=== PATIENT | male | born 1955 | race Caucasian/White ===

== ENCOUNTER 2016-12-23 20:42 | Observation (INO) ==
[2016-12-23] MEDS ORDERED: Nitroglycerin 0.4 MG TAB.SUBL SL ONE (21:43)
--- NOTE | 2016-12-23 21:44 | Emergency Department Note ---
Disposition Clinical Impression: Chest pain Qualifiers: Chest pain type: unspecified Qualified Code(s): R07.9 - Chest pain, unspecified Disposition: Admitted As Inpatient Condition: Good Time of Disposition: 22:30 Chest Pain HPI - General Chief Complaint: ED Chest Pain Stated Complaint: ache in chest Time Seen by Provider: 12/23/16 21:27 Source: patient, family Mode of arrival: ambulatory Limitations: no limitations Vital Signs Reviewed: Yes Nursing Notes Reviewed: Yes - History of Present Illness HPI Narrative: Patient is a 61-year-old male with past medical history of GERD, COPD, hypertension, diabetes, high cholesterol. He presents today due to pain in the center of his chest. He states that he has had several these episodes in the past month or 2. However, today at 3 PM, he had an episode of what he described as a spasm in his chest. It has been pretty constant since then. No associated nausea, vomiting, fevers, radiation, sweating. He denies any shortness of breath that is above baseline. No previous heart attack, stents. He states that he takes omeprazole daily for GERD and does not report any burning or reflux into the back of his throat. Severity scale (1-10): 2 - Related Data Home Medications Medication Instructions Recorded Confirmed Albuterol Inhaler 10/23/16 Coq10 10/23/16 Dulera 100 Mcg/5 Mcg Inhaler 10/23/16 Glucosamine 10/23/16 Lansoprazole 10/23/16 Loratadine 10/23/16 QVAR 40 mcg 10/23/16 Simvastatin 10/23/16 Singulair 10/23/16 Spiriva 10/23/16 Ventolin Hfa 10/23/16 Vitamin D 10/23/16 amLODIPine 10/23/16 Previous Rx's Medication Instructions Recorded Benzonatate [Tessalon] 200 mg PO TID PRN #30 capsule 10/23/16 Cefdinir [Omnicef] 300 mg PO BID #20 capsule 10/23/16 methylPREDNISolone [Medrol] 4 mg PO TAPER #21 tablet 10/23/16 Allergies Allergy/AdvReac Type Severity Reaction Status Date / Time azithromycin Allergy Rash Verified 10/23/16 10:10 [From Zithromax Z-Michael] mold Allergy Rash Verified 10/23/16 10:10 dust Allergy Wheezing Uncoded 10/23/16 10:10 All systems ED: reviewed and negative except as stated. Constitutional: Denies: fever Cardiovascular: Reports: chest pain. Denies: palpitations Respiratory: Denies: cough, dyspnea Gastrointestinal: Denies: abdominal pain, nausea, vomiting, diarrhea Genitourinary: Denies: urgency, dysuria Neurological: Denies: weakness, numbness, paresthesias Chest Pain PMH - Past Medical History Medical history: Reports: COPD, diabetes, other Psychiatric history: Reports: no psych history - Social History Smoking Status: Never smoker Alcohol use: Reports: none Drug use: Reports: none Physical Exam - General Limitations: no limitations General appearance: alert, in no apparent distress - Head Head exam: atraumatic, normocephalic, normal inspection - Eye Eye exam: Present: normal appearance, PERRL, EOMI - ENT ENT exam: normal exam, normal oropharynx, mucous membranes moist - Neck Neck exam: Present: normal inspection, full ROM, trachea midline - Chest Chest inspection: Present: normal inspection, symmetric chest wall rise, tenderness (mild tenderness of sternum that is not reproducing the patient's pain) - Respiratory Respiratory exam: Present: normal lung sounds bilaterally - Cardiovascular Cardiovascular exam: Present: regular rate, normal rhythm, normal heart sounds - Abdominal Exam Abdominal exam: Present: soft, Non-Tender. Absent: tenderness, distention, guarding, rebound, rigidity - Extremities Exam Extremities exam: Present: normal inspection, full ROM. Absent: tenderness, pedal edema - Neurological Exam Neurological exam: Present: alert, oriented X3 - Psychiatric Psychiatric exam: Present: normal affect, normal mood - Skin Skin exam: Present: warm, dry, intact, normal color Course Course Narrative: Vitals within normal limits. Physical exam benign. There is some mild tenderness of the sternum but it did not produce this patient's pain. Labs show no elevation of white blood cell count. BMP not concerning. Troponin negative. EKG shows normal sinus rhythm with no acute ST changes. Chest x-ray shows severe emphysema. The patient's description of spasm-type pain in his chest could be associated with esophageal spasms, especially in the setting of history of GERD. However, cardiac etiology cannot be ruled out at this time. Patient was given nitroglycerin. Recommend admission for ACS rule out. Chest X-Ray 12/23/16 21:20 IMPRESSION: Severe emphysema. D/ / Abel Mahajan MD / Abel Mahajan MD Interpreting Provider: Abel Mahajan MD Vital Signs Temperature 98.2 F 12/23/16 21:17 Pulse Rate 93 12/23/16 21:17 Respiratory Rate 16 12/23/16 21:17 Blood Pressure 134/92 12/23/16 21:17 O2 Sat by Pulse Oximetry 96 12/23/16 21:17 Temperature 98.2 F 12/23/16 21:17 Pulse Rate 78 12/23/16 23:04 Respiratory Rate 18 12/23/16 23:04 Blood Pressure 127/85 12/23/16 23:04 O2 Sat by Pulse Oximetry 96 12/23/16 23:04 Oxygen Delivery Oxygen Delivery Room Air Chest Pain - MDM Narrative Medical decision making narrative: Vitals within normal limits. Physical exam benign. There is some mild tenderness of the sternum but it did not produce this patient's pain. Labs show no elevation of white blood cell count. BMP not concerning. Troponin negative. EKG shows normal sinus rhythm with no acute ST changes. Chest x-ray shows severe emphysema. The patient's description of spasm-type pain in his chest could be associated with esophageal spasms, especially in the setting of history of GERD. However, cardiac etiology cannot be ruled out at this time. Patient was given nitroglycerin, no improvement in pain. Recommend admission for ACS rule out. PATIENT HAS REFUSED ASPIRIN AT THIS TIME. - Medical Records Medical records reviewed: Yes I reviewed the patient's medical records. - Lab Data Lab results reviewed: Yes I reviewed the patient's lab results. Result diagrams: 12/23/16 21:56 12/23/16 21:56 Lab Results 12/23/16 12/23/16 12/23/16 Range/Units 21:56 21:56 21:56 WBC 10.0 (4.3-11.1) K/mcL RBC 5.26 (4.19-5.50) M/mcL Hgb 15.2 (12.9-16.9) g/dL Hct 45.4 (37.5-50.1) % MCV 86.3 (83.0-100.0) fL MCH 28.9 (28.0-33.3) pg MCHC 33.5 (31.6-35.5) g/dL RDW 13.5 (11.5-14.5) % Plt Count 322 (140-400) K/mcL MPV 9.0 L (9.4-12.4) fL Immature Gran % 0.2 (0-4) % Seg Neutrophils % 67.2 % Lymphocytes % 21.8 % Monocytes % 7.8 % Eosinophils % 1.9 % Basophils % 1.1 % Neutrophils # 6.7 (1.6-8.9) K/mcL Lymphocytes # 2.2 (0.6-4.6) K/mcL Monocytes # 0.8 (0.0-1.3) K/mcL Eosinophils # 0.2 (0.0-0.6) K/mcL Basophils # 0.1 (0.0-0.2) K/mcL Immature Plt Fraction 2.1 (1.1-6.1) % PT 10.0 (9.4-12.1) Seconds INR 0.9 APTT 35.4 (26.0-36.0) Seconds Sodium 131 L (136-145) mEq/L Potassium 4.1 (3.5-4.5) mEq/L Chloride 97 L (98-109) mEq/L Carbon Dioxide 22 (19-29) mEq/L BUN 12 (8-26) mg/dL Creatinine 0.78 (0.72-1.25) mg/dL Est GFR ( Amer) > 60 (> 60) Est GFR (Non-Af Amer) > 60 (> 60) BUN/Creatinine Ratio 15 (6-26) Glucose 115 H (70-99) mg/dL Calculated Osmolality 273 L (280-300) Calcium 9.6 (8.6-10.8) mg/dL Troponin I (0-0.03) ng/mL 12/23/16 Range/Units 21:56 WBC (4.3-11.1) K/mcL RBC (4.19-5.50) M/mcL Hgb (12.9-16.9) g/dL Hct (37.5-50.1) % MCV (83.0-100.0) fL MCH (28.0-33.3) pg MCHC (31.6-35.5) g/dL RDW (11.5-14.5) % Plt Count (140-400) K/mcL MPV (9.4-12.4) fL Immature Gran % (0-4) % Seg Neutrophils % % Lymphocytes % % Monocytes % % Eosinophils % % Basophils % % Neutrophils # (1.6-8.9) K/mcL Lymphocytes # (0.6-4.6) K/mcL Monocytes # (0.0-1.3) K/mcL Eosinophils # (0.0-0.6) K/mcL Basophils # (0.0-0.2) K/mcL Immature Plt Fraction (1.1-6.1) % PT (9.4-12.1) Seconds INR APTT (26.0-36.0) Seconds Sodium (136-145) mEq/L Potassium (3.5-4.5) mEq/L Chloride (98-109) mEq/L Carbon Dioxide (19-29) mEq/L BUN (8-26) mg/dL Creatinine (0.72-1.25) mg/dL Est GFR ( Amer) (> 60) Est GFR (Non-Af Amer) (> 60) BUN/Creatinine Ratio (6-26) Glucose (70-99) mg/dL Calculated Osmolality (280-300) Calcium (8.6-10.8) mg/dL Troponin I 0.00 (0-0.03) ng/mL - Radiology Data Radiology results reviewed: Yes I reviewed the patient's radiology results. Chest X-Ray 12/23/16 21:20 IMPRESSION: Severe emphysema. D/ / Abel Mahajan MD / Abel Mahajan MD Interpreting Provider: Abel Mahajan MD - EKG Data EKG attestation: Yes I reviewed and interpreted this EKG. Heart Score - Score History: Slightly Suspicious EKG: Normal Age: 45-65 Risk Factors: Equal/Greater than 3 risk factor or history of atherosclerotic disease Troponin: Less than normal limit HEART Score Total: 3 S.B.A.R. - S.B.A.R. Situation: Demographics, MOA Background: Presenting Complaint, Relevant PMH, Meds, & Allergies Assessment: Vital Signs, Course and respsone to treatment, Exam Concerns, Patient/Family Expectation, Pertinant Lab Results, Outstanding Labs Recommendation: Barrier(s) to disposition, Recommendation based on pending studies, treatments, or consults Nicole Report Given to: Dr. Ying Rivera Repor Time: 22:44 Attestation Statement - Attestation Attestation: I examined this patient and my medical decision-making was reviewed with the Resident Physician, Dr. Mejia. I agree with the documented findings, disposition and treatment plan as described except to the extent set forth below. Patient is a 61-year-old white male with a history of COPD, high cholesterol, hypertension, diabetes who presents to the emergency department with gradually worsening substernal chest pain. Patient states that this is been happening intermittently for short bursts of time over the past few months but today since 3:00 has had a constant aching sensation within the substernal area of his chest which is nonradiating and constant. Patient denies any diaphoresis, no shortness of breath, no nausea vomiting no back discomfort or flank pain no other associated symptoms. Patient states he has had a prior cardiac workup approximately 3 years ago for which he had a stress test done which was a chemical stress. Patient has not had any further testing since that time. I agree with the patient's physical exam findings as documented. Patient's EKG shows a normal sinus rhythm without acute ischemic changes. Patient was administered aspirin and nitroglycerin with some mild improvement but not resolution of his discomfort which continues to be intermittent over time in the ED. Patient's laboratory evaluation was unremarkable with a negative troponin. Considering patient's numerous risk factors and suspicious symptoms we feel he should be admitted for further cardiac evaluation. Patient agrees with this plan and case was discussed with the hospitalist who accepted patient for admission and further testing. Patient has remained hemodynamically stable throughout his ED course.
[2016-12-23 22:02] LABS: Basophils # 0.1 K/mcL (0.0-0.2); Basophils % 1.1 %; Eosinophils # 0.2 K/mcL (0.0-0.6); Eosinophils % 1.9 %; Hematocrit 45.4 % (37.5-50.1); Hemoglobin 15.2 g/dL (12.9-16.9); Immature Granulocytes % 0.2 % (0-4); Immature Platelets 2.1 % (1.1-6.1); Lymphocytes # 2.2 K/mcL (0.6-4.6); Lymphocytes % 21.8 %; Mean Corpuscular HGB Conc 33.5 g/dL (31.6-35.5); Mean Corpuscular Hemoglobin 28.9 pg (28.0-33.3); Mean Corpuscular Volume 86.3 fL (83.0-100.0); Monocytes # 0.8 K/mcL (0.0-1.3); Monocytes % 7.8 %; Neutrophils # 6.7 K/mcL (1.6-8.9); Platelet Count 322 K/mcL (140-400); Red Blood Count 5.26 M/mcL (4.19-5.50); Red Cell Distribution Width 13.5 % (11.5-14.5); Segmented Neutrophils % 67.2 %
[2016-12-23 22:06] LABS: INR 0.9
[2016-12-23 22:09] LABS: Activated Partial Thrombo Time 35.4 Seconds (26.0-36.0)
[2016-12-23 22:15] LABS: BUN/Creatinine Ratio 15 (6-26); Blood Urea Nitrogen 12 mg/dL (8-26); Calcium 9.6 mg/dL (8.6-10.8); Carbon Dioxide 22 mEq/L (19-29); Chloride 97 mEq/L (98-109); Glucose 115 mg/dL (70-99); Osmolality,Calculated 273 (280-300); Potassium 4.1 mEq/L (3.5-4.5); Sodium 131 mEq/L (136-145); eGFR For African Americans > 60 (> 60); eGFR For Non-African Americans > 60 (> 60)
[2016-12-24] MEDS ORDERED: Nitroglycerin 0.4 MG TAB.SUBL SL PRN (01:33)
[2016-12-24] MEDS ORDERED: *HR* Morphine 2 MG/ML SYRINGE IVP PRN (01:33)
[2016-12-24] MEDS ORDERED: Ondansetron 4 MG/2 ML VIAL IVP PRN (06:26)
[2016-12-24] MEDS ORDERED: Naloxone 0.4 MG/ML INJ IVP PRN (06:26)
[2016-12-24] MEDS ORDERED: Acetaminophen 325 MG TABLET PO PRN (06:26)
--- NOTE | 2016-12-24 06:34 | Internal Med History&Physical ---
Date of Encounter: 12/24/16 Time of Encounter: 05:30 Assessment and Plan (1) Chest pain Current visit: Yes Status: Acute 1. Will check a second troponin STAT. 2. Will plan for pharmcologic stress test later horacio if second troponin negative. 3. Will order ECHO as well. Qualifiers: Chest pain type: precordial pain Qualified Code(s): R07.2 - Precordial pain (2) COPD (chronic obstructive pulmonary disease) Current visit: Yes Status: Chronic 1. NO acute process. 2. Continue home meds as appropriate. Qualifiers: COPD type: emphysema Emphysema type: panlobular Qualified Code(s): J43.1 - Panlobular emphysema (3) DVT prophylaxis Current visit: Yes Status: Acute 1. Heparin SQ. Internal Medicine - H&P: HPI Chief complaint: chest pain Admitted From: Emergency Dept Plans for Post Hospital Care: Home History of present illness: Mr. Mary is a 61 year old male who presents with a 2-3 day history of chest pain, associated dyspnea, and pain rating to his neck and jaw. Because of persistence and severity of his symptoms he came in to the ER. Workup in the ER was negative. He was subsequently admitted to the hospitalist service. Upon my assessment of the patient, he is chest pain-free. He has severe COPD, but he states his breathing has been stable and at his baseline now. He denies any fevers, cough, congestion, vomiting, or diarrhea. Past Med Surg Social Fam HX - Past Medical History Attestation: Yes The following information was validated with the patient. Source: patient, old records reviewed Medical history: COPD, diabetes, other Psychiatric history: no psych history - Past Surgical History Surgical History: no surgical history - Social History Smoking Status: Never smoker Smokeless Tobacco Status: No Alcohol use: none Drug use: none Current living situation: Home Activity Level: Independent ambulation - Family History Mother Living Status: Age at : 79 Cause of : stroke Hx Family Cardiac Disorders: Yes (htn, angina) Hx Family Psychosocial Disorders: Yes ("hypercondract") Father Living Status: Age at : 71 Cause of : heart attack Hx Family Cardiac Disorders: Yes (heart attack, open heart surgery) Hx Family Endocrine Disorder: Yes (DM) Internal Medicine - H&P: Meds Albuterol Inhaler 1 IH QID PRN 10/23/16 [History] Benzonatate [Tessalon] 200 mg PO TID PRN #30 capsule 10/23/16 [Rx] Cefdinir [Omnicef] 300 mg PO BID #20 capsule 10/23/16 [Rx] Coq10 100 mg PO DAILY 10/23/16 [History] Dulera 100 Mcg/5 Mcg Inhaler 2 IH BID 10/23/16 [History] Glucosamine 1 tab PO BID 10/23/16 [History] Lansoprazole 30 mg PO BID 10/23/16 [History] Loratadine 10 mg PO DAILY 10/23/16 [History] QVAR 40 mcg 2 puff IH BID 10/23/16 [History] Simvastatin 20 mg PO DAILY 10/23/16 [History] Singulair 10 mg PO DAILY 10/23/16 [History] Spiriva 1 IH DAILY 10/23/16 [History] Ventolin Hfa 1 IH QID PRN 10/23/16 [History] Vitamin D 400 mg PO DAILY 10/23/16 [History] amLODIPine DAILY 10/23/16 [History] methylPREDNISolone [Medrol] 4 mg PO TAPER #21 tablet 10/23/16 [Rx] Albuterol Sulfate [Proair Hfa] 1 puff IH QID PRN 12/24/16 [History] Albuterol Sulfate [Proventil] 4 mg PO TID 12/24/16 [History] Dextran 70/Hypromellose [Artificial Tears Eye Drops] 1 drop OP QID PRN 12/24/16 [History] Finasteride [Proscar] 1 tab PO DAILY 12/24/16 [History] Metformin HCl [Fortamet] 1 tab PO BID 12/24/16 [History] Mv,Minerals/FA/Lycopene/Ginkgo [One Daily For Men 50+ Adv Tab] 1 tab PO DAILY [History] Ocuvite Softgel 1 tab PO DAILY 12/24/16 [History] 3 Allergy/AdvReac Type Severity Reaction Status Date / Time azithromycin Allergy Rash Verified 10/23/16 10:10 [From Zithromax Z-Michael] mold Allergy Rash Verified 10/23/16 10:10 dust Allergy Wheezing Uncoded 10/23/16 10:10 - Constitutional Constitutional: no chills, no fever(s), no night sweats - EENT Eyes: no blurry vision, no change in vision Ears: no ear pain, no tinnitus Nose, mouth and throat: no nasal congestion, no sinus pressure, no sore throat - Cardiovascular Cardiovascular ROS IM: chest pain, diaphoresis, dyspnea, dyspnea on exertion, no lightheadedness, no palpitations - Respiratory Respiratory: no cough, no hemoptysis, no wheezing - Gastrointestinal Gastrointestinal: no abdominal pain, no diarrhea, no hematemesis, no hematochezia, no melena, no vomiting - Genitourinary Genitourinary ROS male: no dysuria, no flank pain, no hematuria - Musculoskeletal Musculoskeletal ROS IM: no back pain, no joint swelling - Integumentary Integumentary IM: no rash, no jaundice - Neurological Neurological ROS: no focal weakness, no headache(s) - Psychiatric Psychiatric: no anxiety, no depression - Endocrine Endocrine IM: no polydipsia, no polyuria - Allergic/Immunologic Allergic/Immunologic: no wheezing, no GI upset with certain foods - Constitutional Vitals: Temp Pulse Resp BP Pulse Ox 97.7 F 74 18 125/83 93 12/24/16 04:36 12/24/16 04:36 12/24/16 04:36 12/24/16 04:36 12/24/16 04:36 General appearance: Present: cooperative, A&O X 3, pleasant, no acute distress - Head Head exam: Present: normal inspection - Eye Eye exam: Present: EOMI, PERRL. Absent: scleral icterus Pupils: Present: normal accommodation - ENT ENT exam: Present: mucous membranes dry, normal exam - Neck Neck exam general surgery: Present: full ROM, supple, trachea midline. Absent: tenderness - Respiratory Respiratory exam: Present: CTAB. Absent: rales, rhonchi, wheezes - Cardiovascular Cardiovascular exam: Present: RRR, +S1, +S2. Absent: systolic murmur - GI/Abdominal GI/Abdominal exam: Present: normal bowel sounds, soft. Absent: hepatomegaly, splenomegaly, tenderness - Extremities Exam Extremities exam: Present: full ROM, warm. Absent: calf tenderness, tenderness - Back Exam Back exam: Present: normal inspection. Absent: CVA tenderness (L), CVA tenderness (R) - Neurological Exam Neurological exam: Present: alert, CN II-XII intact, oriented X3, strengths equal and symetr throughout - Psychiatric Psychiatric exam: Present: normal affect, normal mood - Skin Skin exam: Present: dry, warm. Absent: rash Internal Med - H&P Results - Labs CBC & Chem 7: 12/23/16 21:56 12/23/16 21:56 - EKG Data -: EKG Interpreted by Myself - EKG Data Prior EKG available for review: no EKG comments: 12/24/16 06:37 NSR; no acute changes - Diagnostic Studies Chest x-ray Status: image reviewed by me (negative other than COPD changes)
[2016-12-24] MEDS ORDERED: Regadenoson 0.4 MG/5 ML SYRINGE IVP ONE (07:12)
[2016-12-24] MEDS ORDERED: Beclomethasone 40mcg MDI IH SCH (10:00)
[2016-12-24] MEDS ORDERED: Budesonide/Formoterol 160/4.5 MDI IH SCH (10:00)
[2016-12-24] MEDS: Finasteride 5 MG TABLET PO SCH (10:42)
[2016-12-24] MEDS: Loratadine 10 MG TABLET PO SCH (10:42)
--- NOTE | 2016-12-24 11:01 | Nuclear Medicine Stress Report ---
Regadenoson Nuclear Stress Name: Morro Mary Date of Study: 12/24/2016 Date: 1955 Ht: 73.0 in Medical Record#: [id number] Age: 61 Wt: 190.0 lb Gender: Male Order #: [id number] Location: [facility] Room: opt Supervising Provider: Sidra Espana CNP Reading Physician: Agustin Rodriguez, DO, FACC, FASNC Ordering Physician: Armani Meredith MD Stress Technologist: Alka London, TILE DITCHER, CCT, CPFT Assistant Professor Of Archaeology: Brian Ambrosio Indications: Chest Pain Impression: Pharmacologic stress ECG is negative for ischemia at level of heart rate achieved. Gated EF > 70%. Perfusion imaging was negative for ischemia or infarct. History: Hypertension Diabetes Hypercholesteremia Stress Test Summary: Stress Test Type: Pharmacologic Regadenoson 0.4mg/5ml given IV Baseline Information: Initial Heart Rate: 74 Blood Pressure: 118/76 Stress Information: Stress Time: 4 min sec Test Terminated Due to (primary): As per protocol Maximum Blood Pressure: 70/60 Maximum Heart Rate: 93 Percent Maximum Heart Rate Achieved: 59 Double Product: 6510 METS Reached: 1 Symptoms: Shortness of breath Nuclear Summary: SPECT myocardial perfusion imaging using Tc99m Sestamibi given intravenously was performed at rest and following cardiac stress testing. The resting images were obtained following initial dose of 11.0 mCi. Following stress an additional dose of 30.8 mCi was given at peak exercise or 30 seconds post regadenoson infusion. Medication Given: Time Medication Dose Units Route Findings: Stress Note * Resting ECG demonstrated normal sinus rhythm. * No baseline arrhythmias were noted. * Pharmacologic stress ECG is negative for ischemia at level of heart rate achieved. * No arrhythmias were noted during stress. One PVC in recovery. * Patient had no chest pain during stress. Hemodynamic responses * Normal hemodynamic responses to pharmacologic stress. Study Quality * Study quality is average. Gated EF > 70% * Gated EF > 70%. Left Ventricle * The left ventricle is not dilated. NORMALS * Normal wall motion. * Normal segmental perfusion in stress. TID * No evidence of transient ischemic dilatation. TID ratio = 1.08. Lung Uptake * There is no evidence of increase lung uptake. Inferior Perfusion Rest * The inferior segment shows a mild reduction in perfusion, which resolved with stress imaging. This is consistent with artifact. Updated by Agustin Rodriguez DO, MARLENE, CRISTY, KIRSTEN on 12/24/2016 10:54:47 AM electronically signed on 12/24/2016 10:55:49 AM with status of Final
--- NOTE | 2016-12-24 16:16 | Internal Med Progress Note ---
<Katie Lawrence - Last Filed: 12/24/16 16:14> Date of Encounter: 12/24/16 Time of Encounter: 16:14 - Assessment and plan (1) Chest pain Current Visit: Yes Status: Acute Assessment and plan: Chest pain not worsened by exercise, not relieved with rest Troponin negative x 2 ECHO - negative for ischemia. Gated EF>70% PLAN: Lipid panel pending AM Will consider high-dose statin based upon ACSVD Risk Score, pending lipid panel results The USPSTF recommends the use of aspirin for men age 45 to 79 years -- pt meets criteria with potential benefit due to a reduction in myocardial infarctions given risk factors (DM, Age, HTN, M) outweighs the potential harm due to an increase in gastrointestinal hemorrhage Start low-dose aspirin (81 mg PO daily), enteric coated Qualifiers: Chest pain type: precordial pain Qualified Code(s): R07.2 - Precordial pain (2) COPD (chronic obstructive pulmonary disease) Current Visit: Yes Status: Chronic Assessment and plan: Vitals WNL Continue home medication Qualifiers: COPD type: emphysema Emphysema type: panlobular Qualified Code(s): J43.1 - Panlobular emphysema (3) DVT prophylaxis Current Visit: Yes Status: Acute Assessment and plan: Intermittent compression devices ordered (4) GERD (gastroesophageal reflux disease) Current Visit: Yes Status: Acute Assessment and plan: Hx of GERD Per pt, no night time cough, no reflux symptoms. Endorses occasional heartburn with no current symptoms Continue home medications NPO diet for AM. Qualifiers: Esophagitis presence: esophagitis presence not specified Qualified Code(s) : K21.9 - Gastro-esophageal reflux disease without esophagitis - Subjective Interval history: No acute events overnight. No chest pain. No heartburn. No abdominal pain. States he feels occasional "spasm" on sternum has subsided. Chest pain on admission waas Not aggravated by exercise. No relieved with rest - Constitutional Vitals: Temp Pulse Resp BP Pulse Ox 97.9 F 78 16 121/75 95 12/24/16 11:25 12/24/16 11:25 12/24/16 11:43 12/24/16 11:25 12/24/16 11:43 General appearance: Present: cooperative, A&O X 3, pleasant, no acute distress - Head Head exam: Present: atraumatic, normocephalic - Respiratory Respiratory exam: Absent: accessory muscle use, respiratory distress - Cardiovascular Cardiovascular exam: Present: RRR, +S1, +S2 - GI/Abdominal GI/Abdominal exam: Present: normal bowel sounds, soft, no peritoneal signs. Absent: distended, tenderness - Expanded Lower Extremities Exam Ankle exam: Absent: swelling, tenderness Internal Medicine: Result - Labs CBC & Chem 7: 12/23/16 21:56 12/23/16 21:56 Labs: Cardiac Enzymes 12/24/16 Range/Units 06:38 Troponin I 0.00 (0-0.03) ng/mL - ABG Interpretation ABG results: PT/INR, D-dimer PT 10.0 Seconds (9.4-12.1) 12/23/16 21:56 - Diagnostic Studies Other Images Additional comments: Chest X-Ray 12/23/16 21:20 IMPRESSION: Severe emphysema. D/ / Abel Mahajan MD / Abel Mahajan MD Interpreting Provider: Abel Mahajan MD Consult Discharge Plan - Plan Referrals: Larissa Mcgowan, BEHAVIORAL SCIENTIST [Primary Care Provider] - (Please call for an appt. the day patient will be discharge ) <Armani Meredith P - Last Filed: 12/24/16 18:31> Date of Encounter: 12/24/16 - Constitutional Vitals: Temp Pulse Resp BP Pulse Ox 98.2 F 80 18 121/82 94 12/24/16 16:43 12/24/16 16:43 12/24/16 16:43 12/24/16 16:43 12/24/16 16:43 Internal Medicine: Result - Labs CBC & Chem 7: 12/23/16 21:56 12/23/16 21:56 Labs: Cardiac Enzymes 12/24/16 Range/Units 06:38 Troponin I 0.00 (0-0.03) ng/mL - ABG Interpretation ABG results: PT/INR, D-dimer PT 10.0 Seconds (9.4-12.1) 12/23/16 21:56 - Attending Attestation I examined this patient and my medical decision-making was reviewed with the Resident Physician. I agree with the documented findings, disposition and treatment plan as described except to the extent set forth below. This is not a progress note. This note should not be billed. This is the event note
[2016-12-24] MEDS: Beclomethasone 40mcg MDI IH SCH (20:41)
[2016-12-24] MEDS: Albuterol 2.5 MG/3 ML NEBULIZER IH PRN (20:53)
--- NOTE | 2016-12-25 05:54 | Electrocardiograph Report ---
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
[2016-12-25 06:16] LABS: Basophils # 0.1 K/mcL (0.0-0.2); Basophils % 0.8 %; Eosinophils # 0.2 K/mcL (0.0-0.6); Eosinophils % 2.4 %; Immature Granulocytes % 0.2 % (0-4); Immature Platelets 1.9 % (1.1-6.1); Lymphocytes # 2.2 K/mcL (0.6-4.6); Lymphocytes % 25.8 %; Mean Corpuscular HGB Conc 34.1 g/dL (31.6-35.5); Mean Corpuscular Hemoglobin 29.2 pg (28.0-33.3); Mean Corpuscular Volume 85.8 fL (83.0-100.0); Mean Platelet Volume 8.9 fL (9.4-12.4); Monocytes # 0.7 K/mcL (0.0-1.3); Monocytes % 7.7 %; Neutrophils # 5.4 K/mcL (1.6-8.9); Platelet Count 304 K/mcL (140-400); Red Blood Count 5.13 M/mcL (4.19-5.50); Red Cell Distribution Width 13.4 % (11.5-14.5); Segmented Neutrophils % 63.1 %
[2016-12-25 06:28] LABS: Chol/HDL Ratio 3.4 (0-4.9)
[2016-12-25 06:30] LABS: Alanine Aminotransferase 22 Units/L (0-55); Albumin 3.6 g/dL (3.5-5.0); Albumin/Globulin Ratio 1.1 (1.1-2.2); Alkaline Phosphatase 53 Units/L (38-126); Aspartate Amino Transferase 17 Units/L (5-34); BUN/Creatinine Ratio 14 (6-26); Bilirubin,Total 0.5 mg/dL (0.2-1.2); Blood Urea Nitrogen 10 mg/dL (8-26); Calcium 8.8 mg/dL (8.6-10.8); Carbon Dioxide 21 mEq/L (19-29); Chloride 98 mEq/L (98-109); Chol/HDL Ratio 3.4 (0-4.9); Cholesterol 112 mg/dL (< 200); Globulin 3.2 g/dL (2.4-3.5); Glucose 110 mg/dL (70-99); HDL Cholesterol 33 mg/dL (40-59); LDL Cholesterol,Calculated 54 mg/dL (0-99); Magnesium 1.8 mg/dL (1.6-2.6); Osmolality,Calculated 266 (280-300); Sodium 128 mEq/L (136-145); Total Protein 6.8 g/dL (6.0-8.3); Triglycerides 127 mg/dL (< 150); eGFR For African Americans > 60 (> 60); eGFR For Non-African Americans > 60 (> 60)
[2016-12-25] MEDS ORDERED: Tiotropium 18 MCG inhalation IH SCH (07:00)
[2016-12-25 07:39] VITALS: BP 121/86
[2016-12-25] MEDS: Beclomethasone 40mcg MDI IH SCH (08:21)
[2016-12-25] MEDS: Albuterol 2.5 MG/3 ML NEBULIZER IH PRN (08:21)
[2016-12-25] MEDS: Finasteride 5 MG TABLET PO SCH (08:31)
[2016-12-25] MEDS: Loratadine 10 MG TABLET PO SCH (08:31)
[2016-12-25] MEDS ORDERED: Aspirin Enteric Coated 81 MG Tablet PO SCH (09:00)
[2016-12-25] MEDS ORDERED: Albuterol 2.5 MG/3 ML NEBULIZER IH SCH (09:00)
--- NOTE | 2016-12-25 09:38 | Discharge Summary ---
<Katie Lawrence - Last Filed: 12/25/16 10:10> Date of Encounter: 12/25/16 Time of Encounter: 09:34 - Discharge Diagnosis (1) Chest pain Priority: Primary Status: Acute (2) GERD (gastroesophageal reflux disease) Priority: Primary Status: Chronic (3) COPD (chronic obstructive pulmonary disease) Priority: Secondary Status: Chronic (4) DVT prophylaxis Priority: Secondary Status: Acute - Discharge Medications Prescriptions: Aspirin Enteric Coated [Aspirin EC] 81 mg PO DAILY #30 Home Medications: Albuterol Sulfate [Proventil] 4 mg PO TID 12/24/16 [History] Amlodipine Besylate/Benazepril [Lotrel 10-20 mg Capsule] 1 cap PO DAILY [History] Finasteride [Proscar] 5 mg PO DAILY 12/24/16 [History] Lansoprazole [Prevacid] 30 mg PO DAILY 12/24/16 [History] Mometasone/Formoterol [Dulera 200 Mcg/5 Mcg Inhaler] 2 puff IH BID 12/24/16 [ History] Montelukast [Singulair] 10 mg PO DAILY 12/24/16 [History] Simvastatin [Zocor] 20 mg PO HS 12/24/16 [History] metFORMIN [Glucophage] 500 mg PO BIDWM 12/24/16 [History] Aspirin Enteric Coated [Aspirin EC] 81 mg PO DAILY #30 12/25/16 [Rx] Finasteride [Proscar] 5 mg PO DAILY tab 12/25/16 [Rx] Loratadine [Claritin] 10 mg PO DAILY tab 12/25/16 [Rx] Simvastatin [Zocor] 20 mg PO DAILY tab 12/25/16 [Rx] Allergies/Adverse Reactions: 3 Allergy/AdvReac Type Severity Reaction Status Date / Time azithromycin Allergy Rash Verified 10/23/16 10:10 [From Zithromax Z-Michael] mold Allergy Rash Verified 10/23/16 10:10 dust Allergy Wheezing Uncoded 10/23/16 10:10 Procedures/tests Complete & Pending: Procedures Performed prior 72 hours Category Date Time Status NM kev perf SPECT multi [NM] Routine Exams 12/24/16 06:29 Taken ECG 12 lead ECG [ECG] AM 0600 Y 12/25/16 06:00 Ordered SP pharm nuclear stress Routine Y 12/24/16 07:30 Completed Chest X-Ray 12/23/16 21:20 IMPRESSION: Severe emphysema. D/ / Abel Mahajan MD / Abel Mahajan MD Interpreting Provider: Abel Mahajan MD Date of admission: 12/23/16 23:24 Primary care physician: Larissa Mcgowan CNP Consults: 12/24/16 00:47 Consult to Assistant To The Dean [CONS] Routine Reason for SW Consult: File paperwork, Living Will, Medical POA 12/25/16 08:13 Consult to Gastroenterology [CONS] Routine Consulting Provider: [facility] [place] Reason for Consult: Chest pain, neg fo ACS r/o. Call Completed: No Discharging clinician: Katie Lawrence Anticipated date of discharge: 12/25/16 - Patient Status Disposition: Home, Self-Care Condition: Good Functional capacity at discharge: independent ambulation Overall status at discharge: patient is progressing back to baseline - Discharge Instructions Instructions: Emphysema (DC) Follow Up With: Barrie Robin MD [Partnered Physician] - 01/15/17 10:00 am (Please follow up as schedule...) Larissa Mcgowan CNP [Primary Care Provider] - 01/03/17 10:10 am (Please call for an appt. the day patient will be discharge ) Additional Instructions: Please follow up with your primary care provider Follow up with Dr. Robin of the gastroenterology service as scheduled. Please take your Aspirin 81 mg enteric coated capsule each day. Please return to the emergency room in case of new or worsening chest pain, chest pain associated with back pain, fever, SOB or new onset of symptoms . - Diet and Activity Activity: increase activity as tolerated Diet: low fat, low cholesterol, low salt diet Interval History: No acute events overnight. No chest pain. No SOB. No abdominal pain. Does continue to endorse occassional "spams" Hospital course: Mr. Mary is a 61 year old male with a past medical history of COPD, HTN and DM who presented to the ED with chief complaint of intermittent, sternal chest discomfort in the past 2 months. On admission, he described that the duration had changed from intermittent to one of constant "spasm" in chest. No associated nausea, vomiting, fevers, radiation, sweating. He states that he takes omeprazole daily for GERD with intermittent symptoms. He was recommended for admission for ACS rule out. The patient was given nitroglycerin, with no improvement in pain. Troponin levels x2 were negative. EKG showed normal sinus rhythm with no acute ST changes. The patient had a non exercise nuclear stress testing done negative for ischemia, with gated EF > 70%. Chest x-ray showed severe emphysema. Gastroenterology was consulted, due to the patient's description of spasm-type pain in the setting of history of GERD. The patient's co-morbid conditions were stable while on medical management. - Time Spent with Patient Total time spent providing and/or coordinating discharge services: - Constitutional Vitals: Temp Pulse Resp BP Pulse Ox 97.4 F L 72 13 121/86 93 12/25/16 07:35 12/25/16 07:35 12/25/16 08:24 12/25/16 07:35 12/25/16 08:24 General appearance: Present: cooperative, A&O X 3, pleasant, no acute distress - Head Head exam: Present: atraumatic, normocephalic - Eye Eye exam: Present: sclera anicteric. Absent: conjunctival injection - Respiratory Respiratory exam: Present: CTAB. Absent: accessory muscle use, rales, rhonchi, wheezes - Cardiovascular Cardiovascular exam: Present: RRR, +S1, +S2. Absent: diastolic murmur, gallop, rubs, systolic murmur - GI/Abdominal GI/Abdominal exam: Present: soft. Absent: distended, guarding, tenderness <Viri,Armani P - Last Filed: 12/25/16 18:33> Date of Encounter: 12/25/16 Procedures/tests Complete & Pending: Procedures Performed prior 72 hours Category Date Time Status NM kev perf SPECT multi [NM] Routine Exams 12/24/16 06:29 Taken ECG 12 lead ECG [ECG] AM 0600 Y 12/25/16 06:00 Ordered SP pharm nuclear stress Routine Y 12/24/16 07:30 Completed Date of admission: 12/23/16 23:24 Primary care physician: Larissa Mcgowan CNP Consults: 12/24/16 00:47 Consult to Assistant To The Dean [CONS] Routine Reason for SW Consult: File paperwork, Living Will, Medical POA 12/25/16 08:13 Consult to Gastroenterology [CONS] Routine Consulting Provider: [facility] [place] Reason for Consult: Chest pain, neg fo ACS r/o. Call Completed: No Hospital course: Mr. Mary is a 61 year old male - Time Spent with Patient Total time spent providing and/or coordinating discharge services: - Constitutional Vitals: Temp Pulse Resp BP Pulse Ox 97.4 F L 72 13 121/86 93 12/25/16 07:35 12/25/16 07:35 12/25/16 08:24 12/25/16 07:35 12/25/16 08:24 - Attending Attestation I examined this patient and my medical decision-making was reviewed with the Resident Physician. I agree with the documented findings, disposition and treatment plan as described except to the extent set forth below.
--- NOTE | 2016-12-25 09:43 | Gastroenterology Consult Note ---
<Nayeli Duran - Last Filed: 12/25/16 10:10> Date of Encounter: 12/25/16 Time of Encounter: 09:37 - Assessment and plan (1) Chest pain Status: Acute Assessment and plan: non cardiac chest pain. non exercise nuclear stress test negative for ischemia Troponins x2 negative. No prior EGD on record. lipid panel Within normal limits. Last endoscopy 03/24/10 for heartburn, dysphagia, done by Dr. Saha. EGD showed hiatal hernia, irregular Z line, gastric mucosal erythema, normal duodenum. biopsies were negative for malignancy. Patient states his last colonoscopy was about five years ago, but no records could be found. Plan: will continue non cardiac chest pain work up as outpatient. continue home PPI follow up outpatient with Dr. Robin Qualifiers: Chest pain type: other chest pain Qualified Code(s): R07.89 - Other chest pain; R07.8 - Other chest pain - Time Spent With Patient Total time spent is greater than 50% in coordination of care (as documented) at patient's floor/unit and/or counseling patient: GI History of Present Illness - Data of Consult Consult date: 12/25/16 Requesting Physician: Armani Meredith MD - Consult Narrative Reason for consult: chest pain workup, ACS work up negative. History of present illness: Mr. Mary is a 61 year old male with PMhx of COPD, DM. He presented to the ED with chief complaint of chest pain and was admitted for further work up. Tropes x2 were negative, patient had non exercise nuclear stress testing done and work up for that was negative. patient denies nausea, vomiting, diarrhea, fever, chills, chest pain, shortness of breath, hematuria, hematochezia, melena. He does have history of GERD and hiatal hernia, last endoscopy was in 2009. Patient states he does not currently have difficulty swallowing but has a history of dysphagia. he denies current chest pain. Past Med Surg Social Fam HX - Past Medical History Medical history: COPD, diabetes, other Psychiatric history: no psych history - Past Surgical History Surgical History: no surgical history - Social History Smoking Status: Never smoker Smokeless Tobacco Status: No Alcohol use: none Drug use: none - Family History Mother Living Status: Age at : 79 Cause of : stroke Hx Family Cardiac Disorders: Yes (htn, angina) Hx Family Psychosocial Disorders: Yes ("hypercondract") Father Living Status: Age at : 71 Cause of : heart attack Hx Family Cardiac Disorders: Yes (heart attack, open heart surgery) Hx Family Endocrine Disorder: Yes (DM) All systems PM: reviewed and no additional remarkable complaints except as stated - Constitutional Vitals: Temp Pulse Resp BP Pulse Ox 97.4 F L 72 13 121/86 93 12/25/16 07:35 12/25/16 07:35 12/25/16 08:24 12/25/16 07:35 12/25/16 08:24 General appearance: Present: A&O X 3, pleasant, no acute distress - Head Head exam: Present: atraumatic, normocephalic - Neck Neck exam general surgery: Present: supple, trachea midline - Respiratory Respiratory exam: Present: CTAB - Cardiovascular Cardiovascular exam: Present: RRR, +S1, +S2 - GI/Abdominal GI/Abdominal exam: Present: hypoactive bowel sounds, soft, tenderness. Absent: distended - Extremities Exam Extremities exam: Absent: cyanotic, pedal edema - Psychiatric Psychiatric exam: Present: normal affect, normal mood Results - Labs CBC & Chem 7: 12/25/16 05:58 12/25/16 05:58 Labs: Last Result Calcium 8.8 mg/dL (8.6-10.8) 12/25/16 05:58 Troponin I 0.00 ng/mL (0-0.03) 12/24/16 06:38 Triglycerides 127 mg/dL (< 150) 12/25/16 05:58 Entire Visit Hgb 15.0 g/dL (12.9-16.9) 12/25/16 05:58 Hct 44.0 % (37.5-50.1) 12/25/16 05:58 PT 10.0 Seconds (9.4-12.1) 12/23/16 21:56 Total Bilirubin 0.5 mg/dL (0.2-1.2) 12/25/16 05:58 AST 17 Units/L (5-34) 12/25/16 05:58 ALT 22 Units/L (0-55) 12/25/16 05:58 - ABG ABG results: PT/INR, D-dimer PT 10.0 Seconds (9.4-12.1) 12/23/16 21:56 Consult Discharge Plan - Plan Instructions: Emphysema (DC) Additional Instructions: Please follow up with your primary care provider Follow up with Dr. Robin of the gastroenterology service as scheduled. Please take your Aspirin 81 mg enteric coated capsule each day. Please return to the emergency room in case of new or worsening chest pain, chest pain associated with back pain, fever, SOB or new onset of symptoms . Referrals: Barrie Robin MD [Partnered Physician] - 01/15/17 10:00 am (Please follow up as schedule...) Larissa Mcgowan CNP [Primary Care Provider] - 01/03/17 10:10 am (Please call for an appt. the day patient will be discharge ) Prescriptions: Aspirin Enteric Coated [Aspirin EC] 81 mg PO DAILY #30 <Barrie Robin - Last Filed: 12/31/16 16:11> Date of Encounter: 12/21/16 - Time Spent With Patient Total time spent is greater than 50% in coordination of care (as documented) at patient's floor/unit and/or counseling patient: GI History of Present Illness - Data of Consult Requesting Physician: Armani Meredith MD - Consult Narrative History of present illness: Mr. Mary is a 61 year old male - Constitutional Vitals: Temp Pulse Resp BP Pulse Ox 97.4 F L 72 13 121/86 93 12/25/16 07:35 12/25/16 07:35 12/25/16 08:24 12/25/16 07:35 12/25/16 08:24 Results - Labs CBC & Chem 7: 12/25/16 05:58 12/25/16 05:58 Labs: Last Result Calcium 8.8 mg/dL (8.6-10.8) 12/25/16 05:58 Troponin I 0.00 ng/mL (0-0.03) 12/24/16 06:38 Triglycerides 127 mg/dL (< 150) 12/25/16 05:58 Entire Visit Hgb 15.0 g/dL (12.9-16.9) 12/25/16 05:58 Hct 44.0 % (37.5-50.1) 12/25/16 05:58 PT 10.0 Seconds (9.4-12.1) 12/23/16 21:56 Total Bilirubin 0.5 mg/dL (0.2-1.2) 12/25/16 05:58 AST 17 Units/L (5-34) 12/25/16 05:58 ALT 22 Units/L (0-55) 12/25/16 05:58 - ABG ABG results: PT/INR, D-dimer PT 10.0 Seconds (9.4-12.1) 12/23/16 21:56 - Attending Attestation I have personally interviewed and examined Mr. Mary. He has presented with noncardiac chest pain and can be discharged today and follow up as outpatient for EGD. Thank you.
[2016-12-25] MEDS ORDERED: Albuterol 2.5 MG/3 ML NEBULIZER IH PRN (09:52)
[2016-12-25] MEDS ORDERED: FLUARIX QUAD 2017-18 36MOS UP/PF 0.5 ML SYRINGE IM ONE (10:19)
== END 2016-12-25 10:56 | disposition home or self-care (01) ==
LOC: EMEROO 20:42 → 2ANU 20:42
PROVIDERS: ADMIT Pediatrics; ATTEND Internal Medicine

== ENCOUNTER 2017-11-14 09:33 | Inpatient (IN) ==
--- NOTE | 2017-11-14 12:27 | Internal Med History&Physical ---
Date of Encounter: 11/14/17 Time of Encounter: 12:22 Internal Medicine - H&P: HPI Chief complaint: sent from oncology office abd pain and cellulitis Admitted From: Direct Admit Plans for Post Hospital Care: Home History of present illness: Mr. Mary is a 62 year old male Patient with history of metastatic pancreatic cancer to liver with peritoneal carcinomatosis and ascites, patient also has a history of asthma and COPD, diabetes, high cholesterol and hypertension. Patient had Pleurx catheter placed November 06 and usually drain at home by the but recently the patient have increased pain during the drainage also in the last 3-4 days has has worsening pain with the drainage with the tenderness to touch . with redness and erhythema around the catheter site. Patient denies any fever or chills but feeling very weak and debilitated and poor appetite patient was seen at the oncologist's office today by Dr. Constance Flynn and sent in for admission concern for cath malfunction and possible peritonitis The interventional radiology have been notified and we will put him on scheduled today has been started empirically on Rocephin IV. Past Med Surg Social Fam HX - Past Medical History Medical history: asthma, COPD, diabetes, hyperlipidemia, hypertension, other Additional medical history: diverticulosis Psychiatric history: no psych history - Past Surgical History Surgical History: cataract, cholecystectomy, herniorrhaphy Additional surgical history: colonoscopy - Social History Smoking Status: Never smoker Smokeless Tobacco Status: No Alcohol use: none Drug use: none - Family History Mother Adopted: No Living Status: Hx Family Cardiac Disorders: Yes (htn, angina) Father Adopted: No Living Status: Hx Family Cardiac Disorders: Yes (heart attack, open heart surgery) Hx Family Endocrine Disorder: Yes (DM) Internal Medicine - H&P: Meds Amlodipine Besylate/Benazepril [Lotrel 10-20 mg Capsule] 1 cap PO DAILY [History] Lansoprazole [Prevacid] 30 mg PO DAILY 12/24/16 [History] Montelukast [Singulair] 10 mg PO DAILY 12/24/16 [History] Simvastatin [Zocor] 20 mg PO HS 12/24/16 [History] metFORMIN [Glucophage] 500 mg PO BIDWM 12/24/16 [History] Aspirin Enteric Coated [Aspirin EC] 81 mg PO DAILY #30 09/19/17 [Rx] Loratadine [Claritin] 10 mg PO DAILY tab 12/25/16 [Rx] Albuterol Neb [Proventil Neb] 2.5 mg IH Q4HR 02/20/17 [History] Albuterol Sulfate [Albuterol Inhaler] 2 puff IH Q4H PRN 02/20/17 [History] Ergocalciferol (VITAMIN D2) [Vitamin D] 400 unit PO DAILY 02/20/17 [History] Glucosamn/Condroitn/C/Mn/Nixon [Cvs Glucosamine Chondroitin Tb] 2 tab PO DAILY 02/20/17 [History] Mv-Min/FA/Vit K/Lycop/Lut/Zeax [Ocuvite Eye Plus Multi Tablet] 1 tab PO DAILY [History] Finasteride [Proscar] 5 mg PO DAILY 05/29/17 [History] Budesonide/Formoterol 160/4.5 [Symbicort 160/4.5] 2 puff IH BIDR 10/25/17 [ History] Tiotropium [Spiriva] 18 mcg IH DAILY 10/25/17 [History] Ciprofloxacin [Cipro] 500 mg PO BID #14 tablet 10/30/17 [Rx] Sennosides/Docusate Sodium [Senna Plus] 2 each PO BID #60 tablet 10/30/17 [Rx] Sodium Chloride [Sodium Chloride Tab] 1 gm PO TID #90 tablet 10/30/17 [Rx] Lidocaine/Prilocaine [Emla] 1 appl TP DAILY #30 gm 11/05/17 [Rx] Metoclopramide HCl 5 mg PO QIDAC #150 tablet 11/05/17 [Rx] Ondansetron [Zofran ODT] 8 mg SL Q8H PRN #30 tab 11/05/17 [Rx] Oxycodone HCl 10 - 15 mg PO Q4H 7 Days #120 tablet 11/07/17 [Rx] 3 Allergy/AdvReac Type Severity Reaction Status Date / Time azithromycin Allergy Rash Verified 02/20/17 10:17 [From Zithromax Z-Michael] ciprofloxacin [From Cipro] Allergy Rash Verified 11/06/17 08:50 mold Allergy Rash Verified 02/20/17 10:17 Amoxicillin [From Augmentin] AdvReac Gastrointestinal Verified 11/06/17 08:50 Upset clavulanic acid AdvReac Gastrointestinal Verified 11/06/17 08:50 [From Augmentin] Upset dust Allergy Wheezing Uncoded 10/23/16 10:10 All Systems PM: A 10-system review of systems was performed and is negative for pertinent findings except as documented above in the HPI. - Constitutional General appearance: Present: underweight - Respiratory Respiratory exam: Present: rhonchi - GI/Abdominal GI/Abdominal exam: Present: soft, tenderness - Extremities Exam Extremities exam: Present: warm, radial pulses palpable and symmetrical. Absent : calf tenderness, cyanotic, pedal edema - Assessment and plan (1) Malfunction of peripheral inserted central catheter Current Visit: Yes Status: Acute Assessment and plan: Consult for Pleurx catheter malfunction with cellulitis around the catheter INR has been consult taped for removal Qualifiers: Encounter type: initial encounter Qualified Code(s): T82.598A - Other mechanical complication of other cardiac and vascular devices and implants, initial encounter (2) Cellulitis Current Visit: Yes Status: Acute Assessment and plan: Cellulitis around the Pleurx catheter site patient given Rocephin 2 g IV will add Levaquin Qualifiers: Site of cellulitis: unspecified site Qualified Code(s): L03.90 - Cellulitis , unspecified (3) HTN (hypertension) Current Visit: Yes Status: Chronic Assessment and plan: Resume home medication Qualifiers: Hypertension type: essential hypertension Qualified Code(s): I10 - Essential (primary) hypertension (4) Diabetes 1.5, managed as type 2 Current Visit: Yes Status: Chronic Assessment and plan: Was started on sliding scale and resume home medication (5) Abdominal distension Current Visit: No Status: Acute Assessment and plan: Abdomen distention due to chronic sinusitis would need paracentesis and send for culture also and cell count Rule out spontaneous bacterial peritonitis (6) Ascites Current Visit: No Status: Acute Assessment and plan: 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 Qualifiers: Ascites type: malignant Qualified Code(s): R18.0 - Malignant ascites (7) Liver metastases Current Visit: No Status: Acute Assessment and plan: Patient undergoing chemotherapy (8) Peritoneal carcinomatosis Current Visit: No Status: Acute (9) COPD (chronic obstructive pulmonary disease) Current Visit: No Status: Chronic Assessment and plan: Chronic no active wheezing Qualifiers: COPD type: emphysema Emphysema type: panlobular Qualified Code(s): J43.1 - Panlobular emphysema - Time Spent With Patient Total time spent is greater than 50% in coordination of care (as documented) at patient's floor/unit and/or counseling patient:
[2017-11-14] MEDS ORDERED: Naloxone 0.4 MG/ML INJ IVP PRN (12:36)
[2017-11-14] MEDS ORDERED: Acetaminophen 325 MG TABLET PO PRN (12:36)
[2017-11-14] MEDS ORDERED: *HR* OxyCODONE Immed Rel 5 MG TABLET PO SCH (12:45)
[2017-11-14 13:23] LABS: Hematocrit 41.8 % (37.5-50.1); Hemoglobin 14.6 g/dL (12.9-16.9); Mean Corpuscular HGB Conc 34.9 g/dL (31.6-35.5); Mean Corpuscular Hemoglobin 28.7 pg (28.0-33.3); Mean Corpuscular Volume 82.1 fL (83.0-100.0); Mean Platelet Volume 8.5 fL (9.4-12.4); Platelet Count 398 K/mcL (140-400); Red Blood Count 5.09 M/mcL (4.19-5.50)
[2017-11-14 13:32] LABS: INR 1.3
[2017-11-14] MEDS ORDERED: *HR* OxyCODONE Immed Rel 5 MG TABLET PO PRN ×2 (13:47→13:48)
[2017-11-14 13:51] LABS: Alanine Aminotransferase 20 Units/L (7-52); Albumin 2.6 g/dL (3.5-5.7); Alkaline Phosphatase 198 Units/L (34-104); Aspartate Amino Transferase 22 Units/L (13-39); BUN/Creatinine Ratio 13 (6-26); Bilirubin,Total 0.3 mg/dL (0.3-1.0); Blood Urea Nitrogen 7 mg/dL (8-23); Calcium 7.7 mg/dL (8.6-10.3); Carbon Dioxide 25 mEq/L (23-29); Chloride 86 mEq/L (98-107); Globulin 2.6 g/dL (2.4-3.5); Glucose 131 mg/dL (70-105); Osmolality,Calculated 246 (280-300); Potassium 4.2 mEq/L (3.5-5.1); Sodium 118 mEq/L (136-145); Total Protein 5.2 g/dL (6.4-8.9); eGFR For Non-African Americans > 60 (> 60)
[2017-11-14] MEDS ORDERED: *HR* FentaNYL (PF) 100 MCG/2 ML VIAL IVP ONE (14:28)
--- NOTE | 2017-11-14 14:50 | IR Procedure Note ---
Date of procedure: 11/14/17 Consent Obtained: Written consent Timeout: Correct patient and procedure verified, Correct site verified, Time out performed, Skin prep completed Indications: infected pleurx catheter Procedure Performed: removal of pleurx Was there an machine operator assistant present: No Site/Technique: left abdomen Results/Findings: removed in one piece, no ascites seen Estimated blood loss (cc): 0 Complications: None; Tolerated procedure well Post Procedure Treatment Plan: dc to floor Specimen: none
[2017-11-14] MEDS ORDERED: Levofloxacin 750 MG/150 ML 750 MG/150 ML BAG IVPB SCH (16:00)
[2017-11-14] MEDS ORDERED: Albuterol 2.5 MG/3 ML NEBULIZER IH PRN (16:00)
--- NOTE | 2017-11-14 16:02 | Infectious Disease Consult ---
Date of Encounter: 11/14/17 Time of Encounter: 16:38 Assessment and Plan (1) Cellulitis Status: Acute Assessment and plan: Location: Left lateral abdomen. Likely secondary to Pleurx catheter placement. Causative organism unclear. Get CT of the abdomen and pelvis with IV contrast. Discontinue Rocephin and Levaquin. Start Vancomycin IV. Pharmacy to dose. Goal trough ~15. Start Cefepime 2 grams IV Q12H. Duration of treatment depends on the clinical picture. Monitor renal function and for drug toxicity and dose-adjust antibiotics. Qualifiers: Site of cellulitis: unspecified site Qualified Code(s): L03.90 - Cellulitis , unspecified (2) Abdominal pain Status: Acute Assessment and plan: Etiology unclear, but likely secondary to cellulitis vs. peritonitis vs. cancer- related pain. Abdomen is distended, tender, and erythematous. Get CT of the abdomen and pelvis with IV contrast. Unable to get peritoneal fluid cell count and culture since Pleurx catheter was removed. No cultures were obtained prior to removal. Continue antibiotics as above. Pain management per the primary team. Qualifiers: Abdominal location: lower abdomen, unspecified Qualified Code(s): R10.30 - Lower abdominal pain, unspecified (3) Hyponatremia Status: Acute Assessment and plan: Likely secondary to poor PO intake. Nephrology consulted. Await recommendations. (4) Ascites Status: Acute Assessment and plan: Likely malignant. PleurX catheter placed 11/06/17. Per the patient, minimal output from drain catheter. Qualifiers: Ascites type: malignant Qualified Code(s): R18.0 - Malignant ascites (5) Pancreas cancer Status: Acute Assessment and plan: Diagnosed in October 2017. Follows with [facility]. Started mFOLRINOX 11/07/17 with plans. Hem/Onc consulted and following. Qualifiers: Pancreatic malignancy location: unspecified Qualified Code(s): C25.9 - Malignant neoplasm of pancreas, unspecified (6) Peritoneal carcinomatosis Status: Acute (7) Liver metastases Status: Acute (8) COPD (chronic obstructive pulmonary disease) Status: Chronic Qualifiers: COPD type: emphysema Emphysema type: panlobular Qualified Code(s): J43.1 - Panlobular emphysema (9) Diabetes 1.5, managed as type 2 Status: Chronic (10) HTN (hypertension) Status: Chronic Qualifiers: Hypertension type: essential hypertension Qualified Code(s): I10 - Essential (primary) hypertension Infectious Disease HPI - Data of Consult Patient: new to practice Consult date: 11/14/17 Requesting Physician: Carrie Velasco MD Primary Care Provider: Larissa Mcgowan CNP - Consult Narrative Reason for consult: Peritonitis History of present illness: Mr. Mary is a 62 year old male with a past medical history of metastatic pancreatic adenocarcinoma with associated peritoneal carcinomatosis and extensive liver mets, malignant ascites status post Pleurx drainage catheter, asthma, COPD, DM, HTN, and diverticulosis. The patient was admitted to the hospital 11/14/17 for abdominal pain and cellulitis. We are consulted 11/14/17 for further recommendations for possible peritonitis. Reflux, the patient's a 62-year-old male with past medical history as stated above. The patient was hospitalized back in October for abdominal pain. At that time, the patient was noted to have abdominal ascites and underwent paracentesis. His peritoneal fluid was indicative of SBP, but no cultures were done. He received IV antibiotics while inpatient and was discharged home to complete a course of PO Cipro, which he states he finished. He was also diagnosed with pancreatic cancer with liver mets. He saw the cancer center and was started on treatment 11/07/17. The patient was evaluated at the [facility] by his oncologist today for follow-up. He was noted to have markedly tender abdomen and possible cellulitis of the flank. He was also noted to have leakage of his Pleurx catheter. He was given a dose of IM Rocephin and directly admitted to the hospital. Upon arrival, the patient was afebrile, but was tachycardic. He was otherwise hemodynamically stable. Laboratory studies reveal a normal white blood cell count. Liver and kidney function are normal as well. He was started on IV Rocephin and IV Levaquin and admitted to the hospital for further evaluation. Since admission, he has been evaluated by IR. His Pleurx catheter was removed. The catheter tip was sent for culture, but no peritoneal fluid was sent. During my exam today, the patient endorses the history as stated above. He reports that he was recently diagnosed with pancreatic cancer about three weeks ago with mets to the liver. He had Pleurx catheter placed 11/06/17 and has persistent abdominal pain since then that worsens with drainage of the catheter. He reports that he hasn't been getting much out of the catheter and it has been pale yellow. He denies fevers, chills, or rigors. Denies chest pain , shortness of breath, or cough. Denies vomiting or constipation. Reports alternating constipation and diarrhea since starting chemo last week. Reports constant achy abdominal pain that does not seem to be aggravated or alleviated by anything. Denies urinary complaints. Reports nausea and poor PO intake. Denies oral thrush or new skin lesions. The patient is somewhat a poor historian, so some information is obtained from his daughter at the bedside and the medical record. The record reflects an allergy to Cipro, but it appears the patient took Cipro at home after his last hospitalization and did fine. He does not know the type of reactions he had to the other medications on his allergy list. The patient lives at home with his . He is retired from [employer]. He denies tobacco, alcohol drug use. CC: Carrie Velasco MD Past Med Surg Social Fam HX - Past Medical History Attestation: Yes The following information was validated with the patient. Source: patient, old records reviewed, nursing notes reviewed Medical history: asthma, COPD, diabetes, hyperlipidemia, hypertension, other Additional medical history: diverticulosis Psychiatric history: no psych history - Past Surgical History Surgical History: cataract, cholecystectomy, herniorrhaphy Additional surgical history: colonoscopy - Social History Smoking Status: Never smoker Smokeless Tobacco Status: No Alcohol use: none Drug use: none Occupational status: retired Current living situation: Home, With Family Activity Level: Independent ambulation Recent Out of Country Travel Within the Last 8 Weeks: No Exposure or Possible Exposure to Illness During Travel: No - Family History Mother Adopted: No Living Status: Hx Family Cardiac Disorders: Yes (htn, angina) Father Adopted: No Living Status: Hx Family Cardiac Disorders: Yes (heart attack, open heart surgery) Hx Family Endocrine Disorder: Yes (DM) Infectious Disease-CN:Meds Amlodipine Besylate/Benazepril [Lotrel 10-20 mg Capsule] 1 cap PO DAILY [History] Lansoprazole [Prevacid] 30 mg PO BID 12/24/16 [History] Montelukast [Singulair] 10 mg PO HS 12/24/16 [History] Simvastatin [Zocor] 20 mg PO HS 12/24/16 [History] metFORMIN [Glucophage] 500 mg PO BIDWM 12/24/16 [History] Aspirin Enteric Coated [Aspirin EC] 81 mg PO DAILY #30 12/25/16 [Rx] Loratadine [Claritin] 10 mg PO DAILY tab 12/25/16 [Rx] Albuterol Neb [Proventil Neb] 2.5 mg IH Q4HR PRN 02/20/17 [History] Albuterol Sulfate [Albuterol Inhaler] 2 puff IH Q4H PRN 02/20/17 [History] Ergocalciferol (VITAMIN D2) [Vitamin D] 400 unit PO DAILY 02/20/17 [History] Glucosamn/Condroitn/C/Mn/[place] [[facility] Glucosamine Chondroitin Tb] 2 tab PO DAILY 02/20/17 [History] Finasteride [Proscar] 5 mg PO DAILY 05/29/17 [History] Budesonide/Formoterol 160/4.5 [Symbicort 160/4.5] 2 puff IH BIDR 10/25/17 [ History] Tiotropium [Spiriva] 18 mcg IH DAILY 10/25/17 [History] Sennosides/Docusate Sodium [Senna Plus] 2 each PO BID #60 tablet 10/30/17 [Rx] Sodium Chloride [Sodium Chloride Tab] 1 gm PO TID #90 tablet 10/30/17 [Rx] Lidocaine/Prilocaine [Emla] 1 appl TP DAILY #30 gm 11/05/17 [Rx] Metoclopramide HCl 5 mg PO QIDAC #150 tablet 11/05/17 [Rx] Ondansetron [Zofran ODT] 8 mg SL Q8H PRN #30 tab 11/05/17 [Rx] Albuterol Sulfate [Proventil] 4 mg PO TID 11/14/17 [History] Oxycodone HCl [Oxaydo] 10 mg PO Q4H PRN 11/14/17 [History] Oxycodone HCl [Oxaydo] 15 mg PO Q4H PRN 11/14/17 [History] 3 Allergy/AdvReac Type Severity Reaction Status Date / Time azithromycin Allergy Rash Verified 02/20/17 10:17 [From Zithromax Z-Michael] ciprofloxacin [From Cipro] Allergy Rash Verified 11/06/17 08:50 mold Allergy Rash Verified 02/20/17 10:17 Amoxicillin [From Augmentin] AdvReac Gastrointestinal Verified 11/06/17 08:50 Upset clavulanic acid AdvReac Gastrointestinal Verified 11/06/17 08:50 [From Augmentin] Upset dust Allergy Wheezing Uncoded 10/23/16 10:10 All systems: reviewed and no additional remarkable complaints except as stated Exam - Constitutional Vitals: Temp Pulse Resp BP Pulse Ox 98.4 F 87 16 109/76 94 11/14/17 13:18 11/14/17 13:18 11/14/17 13:18 11/14/17 13:18 11/14/17 13:18 General appearance: average body habitus, cooperative, no acute distress - Head Head exam: Present: atraumatic, normal inspection, normocephalic - Eye Eye exam: Present: EOMI, normal appearance, PERRL Pupils: Present: normal accommodation - ENT ENT exam: Present: mucous membranes moist - Neck Neck exam: Present: normal inspection - Respiratory Respiratory exam: Present: CTAB. Absent: rales, respiratory distress, rhonchi, wheezes - Cardiovascular Cardiovascular exam: Present: RRR, +S1, +S2 - GI/Abdominal GI/Abdominal exam: Present: distended, firm, normal bowel sounds, tenderness ( LUQ, LLQ) Additional comments: Dressing noted to the LLQ lateral aspect C/D/I. Erythema and induration with warmth noted to the left lateral abdomen and left flank, tender on palpation. - Extremities Exam Extremities exam: Present: normal inspection. Absent: joint swelling, pedal edema, tenderness - Back Exam Back exam: Present: CVA tenderness (L), normal inspection - Neurological Exam Neurological exam: Present: alert, oriented X3, no focal deficits - Psychiatric Psychiatric exam: Present: normal affect, normal mood - Skin Skin exam: Present: dry, intact, normal color, warm - Additional findings Additional findings: A-port noted to the left upper chest accessed with More needle with transparent dressing C/D/I. Infectious Disease CN: Results - Labs CBC & Chem 7: 11/14/17 13:06 11/14/17 13:06 Consult Discharge Plan - Plan Referrals: Larissa Mcgowan, [employer]PER[employer] [Primary Care Provider] -
[2017-11-14] MEDS ORDERED: Isovue-370 500 ML INFUS..BTL IV ONE (16:56)
[2017-11-14] MEDS: Ondansetron ODT 4 MG TAB.RAPDIS SL PRN ×2 (17:48→23:57)
[2017-11-14] MEDS: Cefepime HCl 2,000 MG in Water for inj. (sterile) 20 ML 20 ML IVP SCH (17:50)
[2017-11-14] MEDS: *HR* Metformin 500 MG TABLET PO SCH (17:57)
[2017-11-14] MEDS: traMADol 50 MG TABLET PO PRN (18:13)
[2017-11-14] MEDS: Budesonide/Formoterol 160/4.5 MDI IH SCH (20:09)
[2017-11-15 05:32] LABS: Hematocrit 38.5 % (37.5-50.1); Hemoglobin 13.4 g/dL (12.9-16.9); Mean Corpuscular HGB Conc 34.8 g/dL (31.6-35.5); Mean Corpuscular Hemoglobin 28.3 pg (28.0-33.3); Mean Corpuscular Volume 81.4 fL (83.0-100.0); Mean Platelet Volume 8.4 fL (9.4-12.4); Platelet Count 402 K/mcL (140-400); Red Blood Count 4.73 M/mcL (4.19-5.50); Red Cell Distribution Width 13.2 % (11.5-14.5)
[2017-11-15 05:43] LABS: Magnesium 1.7 mg/dL (1.6-2.6)
[2017-11-15] MEDS: Cefepime HCl 2,000 MG in Water for inj. (sterile) 20 ML 20 ML IVP SCH ×2 (06:38→17:47)
[2017-11-15] MEDS: *HR* Enoxaparin 40 MG/0.4 ML SYRINGE SQ SCH (06:38)
[2017-11-15 08:32] LABS: BUN/Creatinine Ratio 14 (6-26); Blood Urea Nitrogen 7 mg/dL (8-23); Calcium 7.2 mg/dL (8.6-10.3); Carbon Dioxide 22 mEq/L (23-29); Chloride 91 mEq/L (98-107); Glucose 132 mg/dL (70-105); Osmolality,Calculated 252 (280-300); Potassium 4.3 mEq/L (3.5-5.1); Sodium 121 mEq/L (136-145); eGFR For Non-African Americans > 60 (> 60)
[2017-11-15] MEDS: Ondansetron ODT 4 MG TAB.RAPDIS SL PRN ×2 (08:37→17:33)
[2017-11-15] MEDS: amLODIPine 5 MG TABLET PO SCH (08:38)
[2017-11-15] MEDS: Loratadine 10 MG TABLET PO SCH (08:39)
[2017-11-15] MEDS: Lisinopril 20 MG TABLET PO SCH (08:39)
[2017-11-15] MEDS: Finasteride 5 MG TABLET PO SCH (08:39)
[2017-11-15] MEDS: Multivit/Ca/Min/Fe/FA 1 TAB TABLET PO SCH (08:40)
[2017-11-15] MEDS: Aspirin Enteric Coated 81 MG Tablet PO SCH (08:40)
[2017-11-15] MEDS: *HR* Metformin 500 MG TABLET PO SCH (08:40)
[2017-11-15] MEDS: Cholecalciferol (D-3) 1,000 UNIT TABLET PO SCH (08:40)
[2017-11-15] MEDS ORDERED: NON-FORMULARY MEDICATION 1 EACH EACH (Glucosamn/Condroitn/C/Mn/Boron [Cvs Glucosamine Chon PO SCH (09:00)
[2017-11-15] MEDS ORDERED: cefTRIAXone 1,000 MG in Water for inj. (sterile) 20 ML 10 ML IVP SCH (09:00)
--- NOTE | 2017-11-15 09:45 | Nephrology Consult Note ---
Date of Encounter: 11/15/17 Time of Encounter: 09:40 Assessment and Plan (1) Hyponatremia Current Visit: No Status: Acute Na+ now 121, was 118 & 117 previously this admission On 11/14 patient had a -130 I/O net and so far today he is at a -330 net Patient states he has already drank a large cup of water Review of limited past labs show a Na+ of 128-131 in Dec 2016 Patient reports history of low sodium "for years" as reported to him by his PCP Continue regular diet, not low sodium Encourage increase p.o intake of water Strict I/Os-ordered Urine osmolarity Urine sodium Serum uric acid TSH Fluid restriction 1.2 liters/day (2) Cellulitis Current Visit: Yes Status: Acute On Vanco IV with pharmacy to dose On Cefepime per primary team Qualifiers: Qualified Code(s): L03.90 - Cellulitis, unspecified (3) Malfunction of peripheral inserted central catheter Current Visit: Yes Status: Resolved Cath has been removed per primary/infectious disease teams Qualifiers: Qualified Code(s): T82.598A - Other mechanical complication of other cardiac and vascular devices and implants, initial encounter (4) Pancreas cancer Current Visit: No Status: Acute per primary team Qualifiers: Qualified Code(s): C25.9 - Malignant neoplasm of pancreas, unspecified (5) Peritoneal carcinomatosis Current Visit: No Status: Acute per primary team History of Present Illness - Reason for Consult Consult date: 11/15/17 - Chief Complaint cellulitis, hyponatremia, liver metastases - History of Present Illness Mr. Mary is a 62 year old male with a past medical history of metastatic pancreatic cancer to liver with peritoneal carcinomatosis and ascites, patient asthma, COPD, diabetes, high cholesterol and hypertension. Patient had Pleurx catheter placed November 06 which became infected and resulted in this hospitalization. Pleurx cath has since been removed and patient is currently on Vanco and Cefepime. Nephrology has been consulted to help manage hyponatremia. Review of limited past labs show patient has chronic low hyponatremia. He states his PCP has told him "for years" his sodium is low. Hx of htn and was on a low salt diet but has since stopped that per his PCP recommendation. Was also told his hyponatremia was because he drank so much water. Past Med Surg Social Fam HX - Past Medical History Medical history: asthma, COPD, diabetes, hyperlipidemia, hypertension, other Additional medical history: diverticulosis Psychiatric history: no psych history - Past Surgical History Surgical History: cataract, cholecystectomy, herniorrhaphy Additional surgical history: colonoscopy - Social History Smoking Status: Never smoker Smokeless Tobacco Status: No Alcohol use: none Drug use: none - Family History Mother Adopted: No Living Status: Hx Family Cardiac Disorders: Yes (htn, angina) Father Adopted: No Living Status: Hx Family Cardiac Disorders: Yes (heart attack, open heart surgery) Hx Family Endocrine Disorder: Yes (DM) Medications and Allergies Amlodipine Besylate/Benazepril [Lotrel 10-20 mg Capsule] 1 cap PO DAILY [History] Lansoprazole [Prevacid] 30 mg PO BID 12/24/16 [History] Montelukast [Singulair] 10 mg PO HS 12/24/16 [History] Simvastatin [Zocor] 20 mg PO HS 12/24/16 [History] metFORMIN [Glucophage] 500 mg PO BIDWM 12/24/16 [History] Aspirin Enteric Coated [Aspirin EC] 81 mg PO DAILY #30 12/25/16 [Rx] Loratadine [Claritin] 10 mg PO DAILY tab 12/25/16 [Rx] Albuterol Neb [Proventil Neb] 2.5 mg IH Q4HR PRN 02/20/17 [History] Albuterol Sulfate [Albuterol Inhaler] 2 puff IH Q4H PRN 02/20/17 [History] Ergocalciferol (VITAMIN D2) [Vitamin D] 400 unit PO DAILY 02/20/17 [History] Glucosamn/Condroitn/C/Mn/[place] [[facility]vs Glucosamine Chondroitin Tb] 2 tab PO DAILY 02/20/17 [History] Finasteride [Proscar] 5 mg PO DAILY 05/29/17 [History] Budesonide/Formoterol 160/4.5 [Symbicort 160/4.5] 2 puff IH BIDR 10/25/17 [ History] Tiotropium [Spiriva] 18 mcg IH DAILY 10/25/17 [History] Sennosides/Docusate Sodium [Senna Plus] 2 each PO BID #60 tablet 10/30/17 [Rx] Sodium Chloride [Sodium Chloride Tab] 1 gm PO TID #90 tablet 10/30/17 [Rx] Lidocaine/Prilocaine [Emla] 1 appl TP DAILY #30 gm 11/05/17 [Rx] Metoclopramide HCl 5 mg PO QIDAC #150 tablet 11/05/17 [Rx] Ondansetron [Zofran ODT] 8 mg SL Q8H PRN #30 tab 11/05/17 [Rx] Albuterol Sulfate [Proventil] 4 mg PO TID 11/14/17 [History] Oxycodone HCl [Oxaydo] 10 mg PO Q4H PRN 11/14/17 [History] Oxycodone HCl [Oxaydo] 15 mg PO Q4H PRN 11/14/17 [History] 3 Allergy/AdvReac Type Severity Reaction Status Date / Time azithromycin Allergy Rash Verified 02/20/17 10:17 [From Zithromax Z-Michael] ciprofloxacin [From Cipro] Allergy Rash Verified 11/06/17 08:50 mold Allergy Rash Verified 02/20/17 10:17 Amoxicillin [From Augmentin] AdvReac Gastrointestinal Verified 11/06/17 08:50 Upset clavulanic acid AdvReac Gastrointestinal Verified 11/06/17 08:50 [From Augmentin] Upset dust Allergy Wheezing Uncoded 10/23/16 10:10 Review of Systems All Systems: reviewed and no additional remarkable complaints except as stated Constitutional: malaise, no chills, no fever(s) Cardiovascular: no chest pain, no leg edema Respiratory: no dyspnea Gastrointestinal: abdominal pain Integumentary: erythema, skin pain Neurological: no behavioral changes Exam - Vital Signs Vital signs: Initial Vital Signs Temp Pulse Resp BP Pulse Ox 98.4 F 87 16 109/76 94 11/14/17 13:18 11/14/17 13:18 11/14/17 13:18 11/14/17 13:18 11/14/17 13:18 Vital Signs - Last 8 Hours Temp Pulse Resp BP Pulse Ox 11/15/17 07:08 98.5 F 94 17 105/70 92 11/15/17 04:54 98 F 92 16 110/75 92 Intake and Output 11/14/17 11/15/17 11/15/17 23:59 07:59 15:59 Intake Total 270 / 270 20 / 20 250 / 250 Output Total 400 / 400 600 / 600 Balance -130 / -130 20 -350 / -350 Intake: IV Fluids 270 / 270 20 250 / 250 Maxipime 2,000 MG In Water for inj. (sterile) 20 ML @ 300 mls/ hr IVP Q12HR [facility] Rx#:[id number] Vancocin 1,000 MG In 0.9 % 250 / 250 250 / 250 Sodium Chloride 250 ML @ 167 mls/hr IVPB Q12H [facility] Rx#: [id number] Output: Urine 400 / 400 Catheter 600 / 600 - General Appearance General appearance: well-developed, well-nourished EENT: ATNC, mucous membranes moist, hearing intact, vision intact Neck: supple Respiratory: clear Cardiology: no edema, normal S1, normal S2 Gastrointestinal: no tenderness, no guarding Integumentary: warm and dry Neurologic: alert and oriented x3 Psychiatric: mood/affect appropriate, cooperative Results - Lab Results 11/15/17 04:58 11/15/17 04:58 Most recent lab results Calcium 7.2 mg/dL (8.6-10.3) L 11/15/17 04:58 Magnesium 1.7 mg/dL (1.6-2.6) 11/15/17 04:58 Consult Discharge Plan - Plan Referrals: Larissa Mcgowan, [employer] [Primary Care Provider] -
--- NOTE | 2017-11-15 09:58 | Internal Med Progress Note ---
<Ferdinand Nguyễn P - Last Filed: 11/15/17 15:58> Date of Encounter: 11/15/17 Time of Encounter: 09:00 - Assessment and plan (1) Malfunction of peripheral inserted central catheter Current Visit: No Status: Resolved Assessment and plan: Intervention radiologist removed the Plurex catheter Feeling better Abdominal pain 05/18 now He is on cefipime and vancomycin Qualifiers: Encounter type: initial encounter Qualified Code(s): T82.598A - Other mechanical complication of other cardiac and vascular devices and implants, initial encounter (2) Acute generalized peritonitis Current Visit: No Status: Chronic Assessment and plan: He has mild cough , but no SOB, wheeze He is improving Qualifiers: COPD type: emphysema Emphysema type: panlobular Qualified Code(s): J43.1 - Panlobular emphysema (3) Cellulitis Current Visit: No Status: Acute Assessment and plan: He has pain , erythema and local increased temperature at drain area Getting better after catheter removal He is on IV antibiotics Qualifiers: Site of cellulitis: unspecified site Qualified Code(s): L03.90 - Cellulitis , unspecified (4) Diabetes 1.5, managed as type 2 Current Visit: No Status: Chronic Assessment and plan: He is known case of diabetetes and treated on line of type 2 diabetes. His latest blood sugar is 132 He is on insulin (5) Hyponatremia Current Visit: No Status: Acute Assessment and plan: The patient is hyponatremic as per his PCP Latest Na+ level 121, but no clinically symptomatic We will monitor daily (6) Pancreas cancer Current Visit: No Status: Acute Assessment and plan: Recently diagnosed patient with Pancreatic carcinoma with mutiple metastasis in liver, peritoneum, omentus. Last chemo was on November 07 Qualifiers: Pancreatic malignancy location: unspecified Qualified Code(s): C25.9 - Malignant neoplasm of pancreas, unspecified - Subjective Interval history: Today is 2nd Day of admission .Mr. Mary is a 62 year old male with a past medical history of metastatic pancreatic adenocarcinoma with associated peritoneal carcinomatosis and extensive liver mets, malignant ascites status post Pleurx drainage catheter, asthma, COPD, DM, HTN, and diverticulosis. The patient was admitted to the hospital 11/14/17 for abdominal pain and wound site infection from drain area, suspected peritonitis. He reports that he was recently diagnosed with pancreatic cancer about three weeks ago with mets to the liver. He had Pleurx catheter placed 11/06/17 . He stated that he has pain , redness , swelling from drainage area. He has distension of abdomen . He admits nausea, mild fever , but denies any chills, rigor cough , chest pain , bowel and bladder problem . He was admitted yesterday and pleurx drain was removed by interventional radialogist, catheter Tip sent for C/S. Infectious disease specialist was consulted . Today he is feeling better, the pain is 1-2/10, mild abdominal distension, feeling nauseated but no vomiting , no fever,. He is on cefipime and vacomycin as per infectious disease specialist and symptomatically improving very well. Vitals : 99.5 F , 105/70 , 94 % . His serum sodium 121 , K+ 4.3 BUN [address] scan reports: Pancreatic mass same as before, Hepatic metastasis / Small volume ascites/omental and peritonial implant . Oncology consultation has been done. - Constitutional Vitals: Temp Pulse Resp BP Pulse Ox 98.5 F 94 17 105/70 92 11/15/17 07:08 11/15/17 07:08 11/15/17 07:08 11/15/17 07:08 11/15/17 07:08 General appearance: Present: mild distress, A&O X 3, underweight, answers questions appropriately - Head Head exam: Present: atraumatic, normal inspection, normocephalic - Neck Neck exam general surgery: Present: supple (No JVD , no cervical and supraclavicular lymphnodes found ) Additional comments: Supple , no JVD , no cervical or supraclavicular LN enlargement - Respiratory Additional comments: Normal chest expansion and equal air entry , no rales and rhonchi - Cardiovascular Additional comments: Normal rate and rhythm, S1S2 normal , no murmur or added sound noted - GI/Abdominal Additional comments: Soft, warm ,Moderately distended abdomen, no rigidity and guarding, BS+, diffuse tenderness , enlarged liver , local erythema and local increased temperature in left lower quadrant at drain area - Extremities Exam Additional comments: No calf swelling, no edema - Neurological Exam Neurological exam: Present: altered, oriented X3, reflexes normal, no focal deficits, strengths equal and symetr throughout - Psychiatric Psychiatric exam: Present: anxious, normal affect Internal Medicine: Result - Labs CBC & Chem 7: 11/15/17 04:58 11/15/17 04:58 Labs: Short CBC 11/14/17 11/15/17 Range/Units 13:06 04:58 WBC 9.9 10.3 (4.3-11.1) K/mcL Hgb 14.6 13.4 (12.9-16.9) g/dL Hct 41.8 38.5 (37.5-50.1) % Plt Count 398 402 H (140-400) K/mcL BMP 11/14/17 11/15/17 13:06 04:58 Sodium 118 L* 121 L Potassium 4.2 4.3 Chloride 86 L 91 L Carbon Dioxide 25 22 L BUN 7 L 7 L Creatinine 0.54 L 0.50 L Glucose 131 H 132 H Calcium 7.7 L 7.2 L Liver Function 11/14/17 Range/Units 13:06 Total Bilirubin 0.3 (0.3-1.0) mg/dL AST 22 (13-39) Units/L ALT 20 (7-52) Units/L Alkaline Phosphatase 198 H (34-104) Units/L Albumin 2.6 L (3.5-5.7) g/dL - ABG Interpretation ABG results: PT/INR, D-dimer PT 15.0 Seconds (9.4-12.1) H 11/14/17 13:06 - Impressions Impressions Abdomen/Pelvis/Transvag US 11/14/17 00:00 IMPRESSION: No evidence of ascites. Paracentesis was not performed. D/ / 11/14/2017 15:32:31 Anika Galeano MD / [facility] Interpreting Provider: Anika Galeano MD Tunnelled Catheter Removal 11/14/17 00:00 IMPRESSION: Successful PleurX catheter removal. Tip sent for cultures. No ascites was seen. D/ / 11/14/2017 15:33:58 Anika Galeano MD / [facility] Interpreting Provider: Anika Galeano MD Abdomen/Pelvis CT 11/14/17 16:56 IMPRESSION: Re- demonstration of a pancreatic mass with the pancreatic tail, similar when compared to the previous exam. Re- demonstration of extensive peritoneal and omental implants, which are similar to mildly increased when compared to the previous exam. Re- demonstration of hepatic metastatic disease, which appears similar when compared to the previous exam. Small volume ascites, which is decreased when compared to the previous exam. D/ / Rolf Regalado MD / Rolf Regalado MD Interpreting Provider: Rolf Regalado MD Consult Discharge Plan - Plan Referrals: Larissa Mcgowan CNP [Primary Care Provider] - <Naun Alfaro - Last Filed: 11/15/17 20:09> Date of Encounter: 11/15/17 - Assessment and plan (1) Cellulitis Current Visit: No Status: Acute Qualifiers: Site of cellulitis: trunk Site of cellulitis of trunk: abdominal wall Qualified Code(s): L03.311 - Cellulitis of abdominal wall (2) HTN (hypertension) Current Visit: No Status: Chronic Qualifiers: Hypertension type: essential hypertension Qualified Code(s): I10 - Essential (primary) hypertension (3) Pancreas cancer Current Visit: No Status: Acute Qualifiers: Pancreatic malignancy location: unspecified Qualified Code(s): C25.9 - Malignant neoplasm of pancreas, unspecified (4) Hyponatremia Current Visit: No Status: Acute (5) Peritoneal carcinomatosis Current Visit: No Status: Chronic - Constitutional Vitals: Temp Pulse Resp BP Pulse Ox 98.6 F 96 18 116/73 93 11/15/17 19:51 11/15/17 19:51 11/15/17 20:02 11/15/17 19:51 11/15/17 20:02 Internal Medicine: Result - Labs CBC & Chem 7: 11/15/17 04:58 11/15/17 04:58 Labs: Short CBC 11/15/17 Range/Units 04:58 WBC 10.3 (4.3-11.1) K/mcL Hgb 13.4 (12.9-16.9) g/dL Hct 38.5 (37.5-50.1) % Plt Count 402 H (140-400) K/mcL BMP 11/15/17 04:58 Sodium 121 L Potassium 4.3 Chloride 91 L Carbon Dioxide 22 L BUN 7 L Creatinine 0.50 L Glucose 132 H Calcium 7.2 L - ABG Interpretation ABG results: PT/INR, D-dimer PT 15.0 Seconds (9.4-12.1) H 11/14/17 13:06 - Impressions Impressions Abdomen/Pelvis CT 11/14/17 16:56 IMPRESSION: Re- demonstration of a pancreatic mass with the pancreatic tail, similar when compared to the previous exam. Re- demonstration of extensive peritoneal and omental implants, which are similar to mildly increased when compared to the previous exam. Re- demonstration of hepatic metastatic disease, which appears similar when compared to the previous exam. Small volume ascites, which is decreased when compared to the previous exam. D/ / Rolf Regalado MD / Rolf Regalado MD Interpreting Provider: Rolf Regalado MD - Attending Attestation I examined this patient and my medical decision-making was reviewed with the Resident Physician on 11/15/17. I agree with the documented findings, disposition and treatment plan as described except to the extent set forth below. Mr Mary is currently admitted for abdominal wall cellulitis and possible peritonitis. He remains moderate to high risk due to potential for worsening clinical status. He is on multiple abx. Exam alert comfortable at this time Mucus membranes dry Heart reg No wheeze abd distended I/P 1. Cellulitis abdominal wall 2. Probable peritonitis. Further diagnoses and plan as above.
--- NOTE | 2017-11-15 10:16 | Infectious Disease Progress No ---
Date of Encounter: 11/15/17 Time of Encounter: 09:00 - Assessment and Plan (1) Cellulitis Current Visit: Yes Status: Acute Location: Left lateral abdomen. Likely secondary to Pleurx catheter placement. Causative organism unclear. CT of the abdomen and pelvis negative for underlying abscess or other acute intra-abdominal process. Continue Vancomycin IV. Pharmacy to dose. Goal trough ~15. Continue Cefepime 2 grams IV Q12H. Duration of treatment depends on the clinical picture. Monitor renal function and for drug toxicity and dose-adjust antibiotics. Qualifiers: Qualified Code(s): L03.90 - Cellulitis, unspecified (2) Abdominal pain Current Visit: No Status: Acute Etiology unclear, but likely secondary to cellulitis vs. peritonitis vs. cancer- related pain. Abdomen is distended, tender, and erythematous, but improved today. CT of the abdomen and pelvis negative for acute changes. Unable to get peritoneal fluid cell count and culture since Pleurx catheter was removed. No cultures were obtained prior to removal. Continue antibiotics as above. Pain management per the primary team. Qualifiers: Qualified Code(s): R10.30 - Lower abdominal pain, unspecified (3) Hyponatremia Current Visit: No Status: Acute Likely secondary to poor PO intake. Improved. Nephrology consulted. Appreciate recommendations. (4) Ascites Current Visit: No Status: Acute Likely malignant. PleurX catheter placed 11/06/17. Per the patient, minimal output from drain catheter. Catheter removed 11/14/17. Qualifiers: Qualified Code(s): R18.0 - Malignant ascites (5) Pancreas cancer Current Visit: No Status: Acute Diagnosed in October 2017. Follows with [facility]. Started mFOLRINOX 11/07/17. Hem/Onc consulted and following. Qualifiers: Qualified Code(s): C25.9 - Malignant neoplasm of pancreas, unspecified (6) Peritoneal carcinomatosis Current Visit: No Status: Acute (7) Liver metastases Current Visit: No Status: Acute (8) COPD (chronic obstructive pulmonary disease) Current Visit: No Status: Chronic Qualifiers: Qualified Code(s): J43.1 - Panlobular emphysema (9) Diabetes 1.5, managed as type 2 Current Visit: Yes Status: Chronic (10) HTN (hypertension) Current Visit: Yes Status: Chronic Qualifiers: Qualified Code(s): I10 - Essential (primary) hypertension - Subjective Interval history: Patient seen and examined sitting up on the side of the bed. States overall he feels a little better today. Denies fevers, chills, or rigors. Denies chest pain , shortness of breath. Denies nausea, vomiting, or diarrhea. States had a formed BM overnight. Denies urinary complaints. States he ate a little bit of breakfast this morning. Denies oral thrush or new skin lesions. States abdominal pain is a little better today. Infect Dis PN-Objective Data - Labs CBC & Chem 7: 11/15/17 04:58 11/15/17 04:58 Labs: Laboratory Results - last 24 hr 11/14/17 11/14/17 11/14/17 13:06 13:06 13:06 WBC 9.9 RBC 5.09 Hgb 14.6 Hct 41.8 MCV 82.1 L MCH 28.7 MCHC 34.9 RDW 13.0 Plt Count 398 MPV 8.5 L PT 15.0 H INR 1.3 Sodium 118 L* Potassium 4.2 Chloride 86 L Carbon Dioxide 25 BUN 7 L Creatinine 0.54 L Est GFR ( Amer) > 60 Est GFR (Non-Af Amer) > 60 BUN/Creatinine Ratio 13 Glucose 131 H POC Glucose Calculated Osmolality 246 L Calcium 7.7 L Magnesium Total Bilirubin 0.3 AST 22 ALT 20 Alkaline Phosphatase 198 H Serum Total Protein 5.2 L Albumin 2.6 L Globulin 2.6 Albumin/Globulin Ratio 1.0 L 11/14/17 11/15/17 11/15/17 17:54 04:58 04:58 WBC 10.3 RBC 4.73 Hgb 13.4 Hct 38.5 MCV 81.4 L MCH 28.3 MCHC 34.8 RDW 13.2 Plt Count 402 H MPV 8.4 L PT INR Sodium 121 L Potassium 4.3 Chloride 91 L Carbon Dioxide 22 L BUN 7 L Creatinine 0.50 L Est GFR ( Amer) > 60 Est GFR (Non-Af Amer) > 60 BUN/Creatinine Ratio 14 Glucose 132 H POC Glucose 212 H Calculated Osmolality 252 L Calcium 7.2 L Magnesium 1.7 Total Bilirubin AST ALT Alkaline Phosphatase Serum Total Protein Albumin Globulin Albumin/Globulin Ratio - Impressions Impressions Abdomen/Pelvis/Transvag US 11/14/17 00:00 IMPRESSION: No evidence of ascites. Paracentesis was not performed. D/ / 11/14/2017 15:32:31 Anika Galeano MD / [facility] Interpreting Provider: Anika Galeano MD Tunnelled Catheter Removal 11/14/17 00:00 IMPRESSION: Successful PleurX catheter removal. Tip sent for cultures. No ascites was seen. D/ / 11/14/2017 15:33:58 Anika Galeano MD / [facility] Interpreting Provider: Anika Galeano MD Abdomen/Pelvis CT 11/14/17 16:56 IMPRESSION: Re- demonstration of a pancreatic mass with the pancreatic tail, similar when compared to the previous exam. Re- demonstration of extensive peritoneal and omental implants, which are similar to mildly increased when compared to the previous exam. Re- demonstration of hepatic metastatic disease, which appears similar when compared to the previous exam. Small volume ascites, which is decreased when compared to the previous exam. D/ / Rolf Regalado MD / Rolf Regalado MD Interpreting Provider: Rolf Regalado MD Exam - Constitutional Vitals: Temp Pulse Resp BP Pulse Ox 98.5 F 94 17 105/70 92 11/15/17 07:08 11/15/17 07:08 11/15/17 07:08 11/15/17 07:08 11/15/17 07:08 General appearance: average body habitus, cooperative, no acute distress - Head Head exam: Present: atraumatic, normal inspection, normocephalic - Eye Eye exam: Present: EOMI, normal appearance, PERRL Pupils: Present: normal accommodation - ENT ENT exam: Present: mucous membranes moist - Neck Neck exam: Present: normal inspection - Respiratory Respiratory exam: Present: CTAB. Absent: rales, respiratory distress, rhonchi, wheezes - Cardiovascular Cardiovascular exam: Present: RRR, +S1, +S2 - GI/Abdominal GI/Abdominal exam: Present: distended, firm, normal bowel sounds, soft, tenderness (LUQ) Additional comments: Previous drain site with guaze dressing C/D/I. ERythema, warmth, and induration to the left lateral abdominal wall persist, but overall improved. - Extremities Exam Extremities exam: Present: normal inspection. Absent: joint swelling, pedal edema, tenderness - Back Exam Back exam: Present: normal inspection. Absent: paraspinal tenderness, vertebral tenderness - Neurological Exam Neurological exam: Present: alert, oriented X3, no focal deficits - Psychiatric Psychiatric exam: Present: normal affect, normal mood - Skin Skin exam: Present: dry, intact, normal color, warm - Additional findings Additional findings: A-port noted to the left upper chest, currently accessed with More needle with transparent dressing C/D/I. Consult Discharge Plan - Plan Referrals: Larissa Mcgowan, REGISTERED DIET TECHNICIAN [Primary Care Provider] -
[2017-11-15 10:43] LABS: Uric Acid 3.1 mg/dL (2.3-7.6)
[2017-11-15 10:49] LABS: Thyroid Stimulating Hormone 2.374 mcIU/mL (0.340-5.600)
[2017-11-15] MEDS: Budesonide/Formoterol 160/4.5 MDI IH SCH ×2 (11:11→20:01)
[2017-11-15] MEDS: Tiotropium 18 MCG inhalation IH SCH (11:14)
--- NOTE | 2017-11-15 13:45 | Oncology Inp Consult Note ---
<Cheli Borja L - Last Filed: 11/15/17 17:23> Date of Encounter: 11/15/17 Time of Encounter: 09:45 Assessment and Plan (1) Pancreas cancer Status: Acute Assessment and plan: Metastatic pancreatic adenocarcinoma with associated peritoneal carcinomatosis and extensive liver metastases S/P cycle initiation of cycle #1 FOLFIRINOX on 11/07/2017. Plan: Plan to continue FOLFIRINOX on outpatient basis dependant upon overall clinical picture and response to treatment Evaluation will be ongoing Qualifiers: Pancreatic malignancy location: unspecified Qualified Code(s): C25.9 - Malignant neoplasm of pancreas, unspecified (2) Abdominal pain Status: Acute Assessment and plan: Likely multifactorial, secondary to cellulitis, peritoneal carcinomatosis, potentially peritonitis Symptoms appear to be improving following abdominal pleurx removal CT abdomen as above without acute process identified Plan: Continue ATB per ID recs, greatly appreciated Supportive treat: Continue pain medication-tramadol or oxycodone, tramadol effective and patient prefers as it has less drowsiness effect Continue reglan, zofran PRN Monitor for catheter tip culture results Blood cultures pending-peripheral and central source obtained Qualifiers: Abdominal location: lower abdomen, unspecified Qualified Code(s): R10.30 - Lower abdominal pain, unspecified (3) Cellulitis Status: Acute Assessment and plan: Localized to left flank May be associated with pleurx catheter-removed per IR yesterday-catheter tip cx pending CT of the abdomen and pelvis negative acute intra-abdominal process On vancomysin/cefepime per ID recommendations Qualifiers: Site of cellulitis: unspecified site Qualified Code(s): L03.90 - Cellulitis , unspecified - Data of Consult Patient: known to practice within the last 3 years Consult date: 11/15/17 Requesting Physician: Naun Alfaro DO Primary Care Provider: Larissa Mcgowan CNP - Consult Narrative Reason for consult: metastatic pancreatic adenocarcinoma History of present illness: Mr. Mary is a 62 year old male with metastatic pancreatic adenocarcinoma with associated peritoneal carcinomatosis and extensive liver metastases S/P cycle initiation of cycle #1 FOLFIRINOX on 11/07/2017. Mr. Mary presented to treating oncologist Dr. Nolasco yesterday for an outpatient chemotherapy management visit, 1 week s/p cycle #1. He was noted to have increased abdominal pain, tenderness with leakage from around his abdominal pleurx catheter, he was asked to present to the ER for further evaluation for potential peritonitis and left flank cellulitis. Patients pain is worse when draining his pleurx, patients states she has been draining about 500 ml or less every day. He was [facility] 2g [facility], blood cultures were obtained peripherally and centrally through his port prior to his presentation for direct admission. Consultation with IR was placed for evaluation of his catheter and to obtain cultures. IR removed his abdominal pleurx catheter yesterday, he did not have any ascites per abdominal US so no sample of fluid was obtained, the abdominal pleurx catheter tip was sent for culture. Of note, during his admission about 2-3 weeks ago, his peritoneal fluid did reveal 923 total nucleated cells indicative of SBP, he was discharged on with a course of Cipro of which he states he did finish. Fluid culture was not obtained at that time. Past Med Surg Social Fam HX - Past Medical History Medical history: asthma, COPD, diabetes, hyperlipidemia, hypertension, other Additional medical history: diverticulosis Psychiatric history: no psych history - Past Surgical History Surgical History: cataract, cholecystectomy, herniorrhaphy Additional surgical history: colonoscopy - Social History Smoking Status: Never smoker Smokeless Tobacco Status: No Alcohol use: none Drug use: none - Family History Mother Adopted: No Living Status: Hx Family Cardiac Disorders: Yes (htn, angina) Father Adopted: No Living Status: Hx Family Cardiac Disorders: Yes (heart attack, open heart surgery) Hx Family Endocrine Disorder: Yes (DM) Medications and Allergies Amlodipine Besylate/Benazepril [Lotrel 10-20 mg Capsule] 1 cap PO DAILY [History] Lansoprazole [Prevacid] 30 mg PO BID 12/24/16 [History] Montelukast [Singulair] 10 mg PO HS 12/24/16 [History] Simvastatin [Zocor] 20 mg PO HS 12/24/16 [History] metFORMIN [Glucophage] 500 mg PO BIDWM 12/24/16 [History] Aspirin Enteric Coated [Aspirin EC] 81 mg PO DAILY #30 12/25/16 [Rx] Loratadine [Claritin] 10 mg PO DAILY tab 12/25/16 [Rx] Albuterol Neb [Proventil Neb] 2.5 mg IH Q4HR PRN 02/20/17 [History] Albuterol Sulfate [Albuterol Inhaler] 2 puff IH Q4H PRN 02/20/17 [History] Ergocalciferol (VITAMIN D2) [Vitamin D] 400 unit PO DAILY 02/20/17 [History] Glucosamn/Condroitn/C/Mn/[place] [[facility] Glucosamine Chondroitin Tb] 2 tab PO DAILY 02/20/17 [History] Finasteride [Proscar] 5 mg PO DAILY 05/29/17 [History] Budesonide/Formoterol 160/4.5 [Symbicort 160/4.5] 2 puff IH BIDR 10/25/17 [ History] Tiotropium [Spiriva] 18 mcg IH DAILY 10/25/17 [History] Sennosides/Docusate Sodium [Senna Plus] 2 each PO BID #60 tablet 10/30/17 [Rx] Sodium Chloride [Sodium Chloride Tab] 1 gm PO TID #90 tablet 10/30/17 [Rx] Lidocaine/Prilocaine [Emla] 1 appl TP DAILY #30 gm 11/05/17 [Rx] Metoclopramide HCl 5 mg PO QIDAC #150 tablet 11/05/17 [Rx] Ondansetron [Zofran ODT] 8 mg SL Q8H PRN #30 tab 11/05/17 [Rx] Albuterol Sulfate [Proventil] 4 mg PO TID 11/14/17 [History] Oxycodone HCl [Oxaydo] 10 mg PO Q4H PRN 11/14/17 [History] Oxycodone HCl [Oxaydo] 15 mg PO Q4H PRN 11/14/17 [History] 3 Allergy/AdvReac Type Severity Reaction Status Date / Time azithromycin Allergy Rash Verified 02/20/17 10:17 [From Zithromax Z-Michael] ciprofloxacin [From Cipro] Allergy Rash Verified 11/06/17 08:50 mold Allergy Rash Verified 02/20/17 10:17 Amoxicillin [From Augmentin] AdvReac Gastrointestinal Verified 11/06/17 08:50 Upset clavulanic acid AdvReac Gastrointestinal Verified 11/06/17 08:50 [From Augmentin] Upset dust Allergy Wheezing Uncoded 10/23/16 10:10 Constitutional: Present: anorexia, fatigue, weakness, weight loss. Absent: chills, fever(s) Eyes: Absent: change in vision Nose, mouth and throat: Absent: dysphagia Cardiovascular: Absent: chest pain, palpitations Respiratory: Present: dyspnea on exertion. Absent: cough, hemoptysis Gastrointestinal: Present: as per HPI, abdominal pain, bloating, diarrhea, nausea, vomiting Additional comments: denies dysuria Musculoskeletal: Present: muscle weakness Integumentary: Present: rash (left flank) Neurological: Absent: focal weakness, frequent falls Psychiatric: Present: as per HPI Hematologic/Lymphatic: Present: as per HPI Oncology - Exam - Constitutional Vitals: Temp Pulse Resp BP Pulse Ox 98.1 F 101 18 95/64 93 11/15/17 11:53 11/15/17 11:53 11/15/17 11:53 11/15/17 11:53 11/15/17 11:53 General appearance: cooperative, no acute distress, no febrile - Head Head exam: Present: atraumatic - ENT ENT exam: Present: mucous membranes moist - Respiratory Respiratory exam: Present: CTAB. Absent: respiratory distress - Cardiovascular Cardiovascular exam: Present: RRR, +S1, +S2 - GI/Abdominal GI/Abdominal exam: Present: distended, normal bowel sounds, soft, tenderness. Absent: rigid Additional comments: diffuse tenderness to palpation, localized area of erythema, edema and warmth to touch to left flank - Extremities Exam Extremities exam: Absent: calf tenderness - Neurological Exam Neurological exam: Present: alert, oriented X3, no focal deficits, strengths equal and symetr throughout - Psychiatric Psychiatric exam: Present: normal affect, normal mood - Skin Skin exam: Present: dry, pallor Oncology - Results Labs: 3 11/15/17 11/15/17 11/15/17 12:32 04:58 04:58 WBC 10.3 RBC 4.73 Hgb 13.4 Hct 38.5 MCV 81.4 L MCH 28.3 MCHC 34.8 RDW 13.2 Plt Count 402 H MPV 8.4 L PT INR Sodium 121 L Potassium 4.3 Chloride 91 L Carbon Dioxide 22 L BUN 7 L Creatinine 0.50 L Est GFR ( Amer) > 60 Est GFR (Non-Af Amer) > 60 BUN/Creatinine Ratio 14 Glucose 132 H POC Glucose Calculated Osmolality 252 L Uric Acid 3.1 Calcium 7.2 L Magnesium 1.7 Total Bilirubin AST ALT Alkaline Phosphatase Serum Total Protein Albumin Globulin Albumin/Globulin Ratio TSH 2.374 Specimen Rejected Container 3 11/14/17 11/14/17 11/14/17 17:54 13:06 13:06 WBC RBC Hgb Hct MCV MCH MCHC RDW Plt Count MPV PT 15.0 H INR 1.3 Sodium 118 L* Potassium 4.2 Chloride 86 L Carbon Dioxide 25 BUN 7 L Creatinine 0.54 L Est GFR ( Amer) > 60 Est GFR (Non-Af Amer) > 60 BUN/Creatinine Ratio 13 Glucose 131 H POC Glucose 212 H Calculated Osmolality 246 L Uric Acid Calcium 7.7 L Magnesium Total Bilirubin 0.3 AST 22 ALT 20 Alkaline Phosphatase 198 H Serum Total Protein 5.2 L Albumin 2.6 L Globulin 2.6 Albumin/Globulin Ratio 1.0 L TSH Specimen Rejected 3 11/14/17 13:06 WBC 9.9 RBC 5.09 Hgb 14.6 Hct 41.8 MCV 82.1 L MCH 28.7 MCHC 34.9 RDW 13.0 Plt Count 398 MPV 8.5 L PT INR Sodium Potassium Chloride Carbon Dioxide BUN Creatinine Est GFR ( Amer) Est GFR (Non-Af Amer) BUN/Creatinine Ratio Glucose POC Glucose Calculated Osmolality Uric Acid Calcium Magnesium Total Bilirubin AST ALT Alkaline Phosphatase Serum Total Protein Albumin Globulin Albumin/Globulin Ratio TSH Specimen Rejected Consult Discharge Plan - Plan Referrals: Larissa Mcgowan CNP [Primary Care Provider] - <Gee Nolasco S - Last Filed: 11/15/17 19:49> Date of Encounter: 11/15/17 - Data of Consult Requesting Physician: Naun Alfaro DO Primary Care Provider: Larissa Mcgowan CNP - Consult Narrative History of present illness: Mr. Mary is a 62 year old male Oncology - Exam - Constitutional Vitals: Temp Pulse Resp BP Pulse Ox 98.5 F 86 18 97/70 94 11/15/17 15:16 11/15/17 15:16 11/15/17 15:16 11/15/17 15:16 11/15/17 15:16 Oncology - Results Labs: 3 11/15/17 11/15/17 11/15/17 16:32 14:33 14:33 WBC RBC Hgb Hct MCV MCH MCHC RDW Plt Count MPV PT INR Sodium Potassium Chloride Carbon Dioxide BUN Creatinine Est GFR ( Amer) Est GFR (Non-Af Amer) BUN/Creatinine Ratio Glucose POC Glucose 139 H Calculated Osmolality Uric Acid Calcium Magnesium Total Bilirubin AST ALT Alkaline Phosphatase Serum Total Protein Albumin Globulin Albumin/Globulin Ratio TSH Urine Osmolality 631 Urine Sodium 32.3 Specimen Rejected 3 11/15/17 11/15/17 11/15/17 12:32 04:58 04:58 WBC 10.3 RBC 4.73 Hgb 13.4 Hct 38.5 MCV 81.4 L MCH 28.3 MCHC 34.8 RDW 13.2 Plt Count 402 H MPV 8.4 L PT INR Sodium 121 L Potassium 4.3 Chloride 91 L Carbon Dioxide 22 L BUN 7 L Creatinine 0.50 L Est GFR ( Amer) > 60 Est GFR (Non-Af Amer) > 60 BUN/Creatinine Ratio 14 Glucose 132 H POC Glucose Calculated Osmolality 252 L Uric Acid 3.1 Calcium 7.2 L Magnesium 1.7 Total Bilirubin AST ALT Alkaline Phosphatase Serum Total Protein Albumin Globulin Albumin/Globulin Ratio TSH 2.374 Urine Osmolality Urine Sodium Specimen Rejected Container 3 11/14/17 11/14/17 11/14/17 17:54 13:06 13:06 WBC RBC Hgb Hct MCV MCH MCHC RDW Plt Count MPV PT 15.0 H INR 1.3 Sodium 118 L* Potassium 4.2 Chloride 86 L Carbon Dioxide 25 BUN 7 L Creatinine 0.54 L Est GFR ( Amer) > 60 Est GFR (Non-Af Amer) > 60 BUN/Creatinine Ratio 13 Glucose 131 H POC Glucose 212 H Calculated Osmolality 246 L Uric Acid Calcium 7.7 L Magnesium Total Bilirubin 0.3 AST 22 ALT 20 Alkaline Phosphatase 198 H Serum Total Protein 5.2 L Albumin 2.6 L Globulin 2.6 Albumin/Globulin Ratio 1.0 L TSH Urine Osmolality Urine Sodium Specimen Rejected 3 11/14/17 13:06 WBC 9.9 RBC 5.09 Hgb 14.6 Hct 41.8 MCV 82.1 L MCH 28.7 MCHC 34.9 RDW 13.0 Plt Count 398 MPV 8.5 L PT INR Sodium Potassium Chloride Carbon Dioxide BUN Creatinine Est GFR ( Amer) Est GFR (Non-Af Amer) BUN/Creatinine Ratio Glucose POC Glucose Calculated Osmolality Uric Acid Calcium Magnesium Total Bilirubin AST ALT Alkaline Phosphatase Serum Total Protein Albumin Globulin Albumin/Globulin Ratio TSH Urine Osmolality Urine Sodium Specimen Rejected - Attending Attestation I have seen and examined Mr. Chan and agree with the assessment of Ms. Borja. Clinically, he is improving. He has been placed on broad-spectrum antibiotics with cefepime and vancomycin. His abdominal pain is markedly improved since removal of his Pleurx catheter as well as antimicrobials. His diaphoresis and chills have also improved. Cellulitis remains on the left flank but appears less prominent than it did yesterday. Abdominal tenderness has markedly improved and rebound resolved. I recommend continuation of supportive care. Appreciate the assistance of my infectious disease colleagues. Encourage increased by mouth intake and ambulation. No new recommendations from our perspective today.
[2017-11-15] MEDS: traMADol 50 MG TABLET PO PRN (18:49)
[2017-11-16] MEDS: Ondansetron ODT 4 MG TAB.RAPDIS SL PRN ×3 (00:34→16:18)
[2017-11-16 03:11] LABS: Basophils % 0.4 %; Eosinophils % 0.2 %; Hematocrit 37.3 % (37.5-50.1); Hemoglobin 13.2 g/dL (12.9-16.9); Immature Granulocytes % 0.5 % (0-4); Lymphocytes # 1.4 K/mcL (0.6-4.6); Lymphocytes % 15.1 %; Mean Corpuscular HGB Conc 35.4 g/dL (31.6-35.5); Mean Corpuscular Hemoglobin 29.2 pg (28.0-33.3); Mean Corpuscular Volume 82.5 fL (83.0-100.0); Mean Platelet Volume 8.3 fL (9.4-12.4); Monocytes # 0.7 K/mcL (0.0-1.3); Monocytes % 7.8 %; Neutrophils # 7.2 K/mcL (1.6-8.9); Platelet Count 395 K/mcL (140-400); Red Blood Count 4.52 M/mcL (4.19-5.50); Red Cell Distribution Width 13.3 % (11.5-14.5)
[2017-11-16 03:31] LABS: BUN/Creatinine Ratio 18 (6-26); Blood Urea Nitrogen 9 mg/dL (8-23); Calcium 7.5 mg/dL (8.6-10.3); Carbon Dioxide 24 mEq/L (23-29); Chloride 92 mEq/L (98-107); Glucose 123 mg/dL (70-105); Osmolality,Calculated 256 (280-300); Potassium 4.1 mEq/L (3.5-5.1); Sodium 123 mEq/L (136-145); eGFR For Non-African Americans > 60 (> 60)
[2017-11-16] MEDS: Cefepime HCl 2,000 MG in Water for inj. (sterile) 20 ML 20 ML IVP SCH ×2 (05:54→18:08)
[2017-11-16] MEDS: *HR* Enoxaparin 40 MG/0.4 ML SYRINGE SQ SCH (05:55)
[2017-11-16] MEDS: Budesonide/Formoterol 160/4.5 MDI IH SCH ×2 (08:05→19:36)
[2017-11-16] MEDS: Tiotropium 18 MCG inhalation IH SCH (08:06)
[2017-11-16] MEDS: amLODIPine 5 MG TABLET PO SCH (08:25)
[2017-11-16] MEDS: Loratadine 10 MG TABLET PO SCH (08:25)
[2017-11-16] MEDS: Aspirin Enteric Coated 81 MG Tablet PO SCH (08:26)
[2017-11-16] MEDS: Finasteride 5 MG TABLET PO SCH (08:26)
[2017-11-16] MEDS: Multivit/Ca/Min/Fe/FA 1 TAB TABLET PO SCH (08:26)
[2017-11-16] MEDS: Cholecalciferol (D-3) 1,000 UNIT TABLET PO SCH (08:26)
[2017-11-16] MEDS: Lisinopril 20 MG TABLET PO SCH (08:35)
--- NOTE | 2017-11-16 10:17 | Nephrology Progress Note ---
Date of Encounter: 11/16/17 Time of Encounter: 10:15 - Assessment and Plan (1) Hyponatremia Current Visit: No Status: Acute Hypotonic hyponatremia: slowly trending better and asymptomatic. Most likely etiology is relative to pancreatic Ca, liver mets and partial urinary tract obstruction. Continue the 1.2L per day fluid restriction, plus continue the NaCl 1gm po TID. Of note, partial urinary track obstructions can contribute to hyponatremia, and his bedside PVR last night was 157-200 cc, so I recommended placement of a jasso catheter. The initial CT did not demonstrate hydro. Continue the Finasteride. Relative hypotension, and so I have decrease the lisinopril to 2.5mg po daily. If his hyponatremia does not correct sufficiently, then may need demeclocycline. (2) Urinary retention Current Visit: Yes Status: Acute See above (3) Peritoneal carcinomatosis Current Visit: No Status: Chronic per primary team (4) Pancreas cancer Current Visit: No Status: Chronic per primary team Qualifiers: Pancreatic malignancy location: unspecified Qualified Code(s): C25.9 - Malignant neoplasm of pancreas, unspecified (5) Malfunction of peripheral inserted central catheter Current Visit: No Status: Resolved Cath has been removed per primary/infectious disease teams Qualifiers: Encounter type: initial encounter Qualified Code(s): T82.598A - Other mechanical complication of other cardiac and vascular devices and implants, initial encounter Subjective Principal diagnosis: Hyponatremia Interval history: Pt was s/e and did not affirm N/V/D, though he still has some left sided abdominal discomfort. His was present at the bedside. Objective - Vital Signs Vital signs: Vital Signs Temp Pulse Resp BP Pulse Ox 11/16/17 08:08 18 96 11/16/17 07:05 98.5 F 97 15 94/63 95 11/16/17 04:46 98.5 F 95 15 110/74 93 11/15/17 20:02 18 93 11/15/17 19:51 98.6 F 96 15 116/73 92 11/15/17 15:16 98.5 F 86 18 97/70 94 11/15/17 11:53 98.1 F 101 18 95/64 93 11/15/17 11:11 18 96 Intake and Output 11/15/17 11/16/17 11/16/17 23:59 07:59 15:59 Intake Total 20 / 20 120 / 120 Output Total 350 / 350 600 / 600 Balance -330 / -330 -480 / -480 Intake: IV Fluids 20 Maxipime 2,000 MG In Water for inj. (sterile) 20 ML @ 300 mls/ hr IVP Q12HR [facility] Rx#:[id number] Oral 0 / 0 100 / 100 Output: Urine 200 / 200 Catheter 150 / 150 600 / 600 Urethral (Jasso) 150 / 150 Other: Meal Dinner Percent of Meal Consumed 10% Stool Size Small Moderate Stool Consistency soft loose formed liquid Stool Color Brown Brown # Bowel Movements 1 2 Weight 81.4 kg Blood Glucose* 197 - General Appearance Exam: General appearance: well-developed, well-nourished EENT: ATNC, mucous membranes moist, hearing intact, vision intact Neck: supple Respiratory: clear to auscultation bilaterally Cardiology: no edema, normal S1, normal S2 Gastrointestinal: LUQ mild tenderness, no guarding, mild distention with minimal fluid wave Integumentary: warm and dry Neurologic: alert and oriented x3 Psychiatric: flat affect, cooperative - Lab 11/16/17 03:00 11/16/17 03:00 Most recent lab results Calcium 7.5 mg/dL (8.6-10.3) L 11/16/17 03:00 Magnesium 1.7 mg/dL (1.6-2.6) 11/15/17 04:58 Urine Sodium 32.3 mEq/L 11/15/17 14:33 Consult Discharge Plan - Plan Referrals: Larissa Mcgowan, [facility] [employer] [Primary Care Provider] -
[2017-11-16] MEDS ORDERED: D5% in Water 1,000 ML IVC PRN (11:11)
[2017-11-16] MEDS ORDERED: Dextrose Gel 15 GM/37.5 ML TUBE PO PRN ×2 (11:11)
[2017-11-16] MEDS ORDERED: *HR* Dextrose 50 % in Water (Syg) 50 ML SYRINGE IVP PRN (11:11)
--- NOTE | 2017-11-16 11:21 | Oncology Inp Progress Note ---
Date of Encounter: 11/16/17 Time of Encounter: 10:00 (1) Peritonitis (acute) generalized Current Visit: Yes Status: Acute Assessment and plan: Cultures remained sterile. Pain immediately improved upon removal of the Pleurx catheter. Not entirely clear he had peritonitis. He is clinically improving. Perhaps over the next 24-48 hours, consider transition to oral antibiotic. 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 Clinically responding to sodium tablets as well as fluid restriction. Sodium has improved to 123 up from 117 in the office. Continue supportive care. Appreciate nephrology recommendations. (3) Pancreas cancer Current Visit: No Status: Acute Assessment and plan: Status post cycle 1 of FOLFIRINOX chemotherapy. Second cycle will be delayed. I did discuss with the as well as the overall expectations and prognosis. As he has peritoneal arsenic ptosis from pancreas cancer, his prognosis is grave. Without treatment, survival would be estimated in weeks to months. For now, he desires to pursue an aggressive an approach but may be rethinking this. This will be an ongoing discussion. Continue supportive measures. Qualifiers: Pancreatic malignancy location: unspecified Qualified Code(s): C25.9 - Malignant neoplasm of pancreas, unspecified (4) Cellulitis Current Visit: No Status: Acute Assessment and plan: Clinically improving. Continue current care plan with antibiotics. Would consider transition to oral therapy next 24-48 hours. We will defer to ID. Qualifiers: Site of cellulitis: trunk Site of cellulitis of trunk: abdominal wall Qualified Code(s): L03.311 - Cellulitis of abdominal wall Oncology: Subj Interval history: Doing okay this morning. Abdominal pain continues to improve. No significant change from yesterday. He did have 3 loose stools overnight. No significant abdominal cramping with this. No fever or chills although he still feels clammy at times. For a catheter placed for increased post void residual. Sodium is improving. Oral intake is improving. Cultures remained sterile - Constitutional Vitals: Vital Signs Temp Pulse Resp BP Pulse Ox 11/16/17 10:36 97.9 F 99 16 104/66 94 11/16/17 08:08 18 96 11/16/17 07:05 98.5 F 97 15 94/63 95 11/16/17 04:46 98.5 F 95 15 110/74 93 11/15/17 20:02 18 93 11/15/17 19:51 98.6 F 96 15 116/73 92 11/15/17 15:16 98.5 F 86 18 97/70 94 11/15/17 11:53 98.1 F 101 18 95/64 93 Intake and Output 11/16/17 11/16/17 11/16/17 00:59 08:59 16:59 Intake Total 20 120 / 120 Output Total 350 / 350 600 / 600 125 / 125 Balance -330 / -330 -480 / -480 -125 / -125 Intake: IV Fluids 20 20 Maxipime 2,000 MG In Water for inj. (sterile) 20 ML @ 300 mls/ hr IVP Q12HR [facility] Rx#:[id number] Oral 0 / 0 100 / 100 Output: Urine 200 / 200 Catheter 150 / 150 600 / 600 125 / 125 Urethral (Fried) 150 / 150 Other: Meal Dinner Percent of Meal Consumed 10% Stool Size Small Moderate Stool Consistency soft loose formed liquid Stool Color Brown Brown # Bowel Movements 1 2 0 Weight 81.4 kg Blood Glucose* 197 225 General appearance: average body habitus, cooperative, no acute distress - Head Head exam: Present: atraumatic, normal inspection, normocephalic - Eye Eye exam: Present: normal appearance, conjuntiva pink, sclera anicteric - ENT ENT exam: Present: mucous membranes moist, normal oropharynx - Neck Neck exam: Present: full ROM, normal inspection - Respiratory Respiratory exam: Present: CTAB - Cardiovascular Cardiovascular exam: Present: RRR - GI/Abdominal GI/Abdominal exam: Present: soft, tenderness - Extremities Exam Extremities exam: Present: pedal edema - Neurological Exam Neurological exam: Present: alert, CN II-XII intact, oriented X3, no focal deficits - Skin Skin exam: Present: rash, warm (Cellulitis appears improved) Oncology: Obj Data - Labs CBC & Chem 7: 11/16/17 03:00 11/16/17 03:00 Labs: Laboratory Results - last 24 hr 11/15/17 11/15/17 11/15/17 12:32 14:33 14:33 WBC RBC Hgb Hct MCV MCH MCHC RDW Plt Count MPV Immature Gran % Seg Neutrophils % Lymphocytes % Monocytes % Eosinophils % Basophils % Neutrophils # Lymphocytes # Monocytes # Eosinophils # Basophils # Sodium Potassium Chloride Carbon Dioxide BUN Creatinine Est GFR ( Amer) Est GFR (Non-Af Amer) BUN/Creatinine Ratio Glucose POC Glucose Calculated Osmolality Calcium Urine Osmolality 631 Urine Sodium 32.3 Vancomycin Trough Specimen Rejected Container 11/15/17 11/16/17 11/16/17 16:32 03:00 03:00 WBC 9.5 RBC 4.52 Hgb 13.2 Hct 37.3 L MCV 82.5 L MCH 29.2 MCHC 35.4 RDW 13.3 Plt Count 395 MPV 8.3 L Immature Gran % 0.5 Seg Neutrophils % 76.0 Lymphocytes % 15.1 Monocytes % 7.8 Eosinophils % 0.2 Basophils % 0.4 Neutrophils # 7.2 Lymphocytes # 1.4 Monocytes # 0.7 Eosinophils # 0.0 Basophils # 0.0 Sodium Potassium Chloride Carbon Dioxide BUN Creatinine Est GFR ( Amer) Est GFR (Non-Af Amer) BUN/Creatinine Ratio Glucose POC Glucose 139 H Calculated Osmolality Calcium Urine Osmolality Urine Sodium Vancomycin Trough 9 Specimen Rejected 11/16/17 03:00 WBC RBC Hgb Hct MCV MCH MCHC RDW Plt Count MPV Immature Gran % Seg Neutrophils % Lymphocytes % Monocytes % Eosinophils % Basophils % Neutrophils # Lymphocytes # Monocytes # Eosinophils # Basophils # Sodium 123 L Potassium 4.1 Chloride 92 L Carbon Dioxide 24 BUN 9 Creatinine 0.49 L Est GFR ( Amer) > 60 Est GFR (Non-Af Amer) > 60 BUN/Creatinine Ratio 18 Glucose 123 H POC Glucose Calculated Osmolality 256 L Calcium 7.5 L Urine Osmolality Urine Sodium Vancomycin Trough Specimen Rejected - ABG Interpretation ABG results: PT/INR, D-dimer PT 15.0 Seconds (9.4-12.1) H 11/14/17 13:06 Consult Discharge Plan - Plan Referrals: Larissa Mcgowan, [employer] [Primary Care Provider] -
[2017-11-16] MEDS: Insulin LISPRO 300 UNITS/3 ML VIAL SQ SCH ×3 (11:35→21:21)
--- NOTE | 2017-11-16 16:31 | Internal Med Progress Note ---
Hospitalist Progress Note - Encounter Date of Encounter: 11/16/17 Time of Encounter: 12:15 - Subjective Interval History: Mr Mary is currently admitted for cellulitis of abdominal wall and probable peritonitis. He remains moderate to high risk due to potential for worsening clinical status. Mr Mary feels OK. He is awaiting lunch. He thinks the redness on his abdomen is improving and the pain in his abdomen seems to be getting better. No fever or chills. No cough. No CP or SOB at this time. - Exam Vitals: Temp Pulse Resp BP Pulse Ox 98.1 F 97 16 102/70 92 11/16/17 14:51 11/16/17 14:51 11/16/17 14:51 11/16/17 14:51 11/16/17 14:51 Exam: General: Alert and oriented. Resting comfortably in bed at this time. Lying flat on back. Skin: Normal color, no rash, no lesions. Head: NC, atraumatic Eyes: EOM, pupils equal, round and reactive. ENT: Mucus membranes dry. No lesion. Cardiovascular: Normal S1 & S2, no rubs, murmurs or gallops. No JVD. Pulse regular. Lungs: Normal breath sounds, no wheezes or crackles. Diminished posteriorly Abdomen: Soft, non-tender, no rigidity. Normal bowel sounds. Fluid present. Extremities: No deformity, no edema or tenderness, no joint swelling or clubbing. Neurological: Normal cognition and motor skills. No focal deficit noted. Pulses: Carotid and radial pulses normal +2. Skin: Erythema noted on L lower abdomen. Dressing intact. No fluctuance. - Assessment and Plan (1) Cellulitis Current Visit: No Status: Acute Assessment and Plan: Due to infected peritoneal catheter. Currently on IV Cefipime and Vancomycin. Tolerating meds. Vanc trough on lower side. Clinically slowly improving. At this time will continue same abx and treatment. Continue local wound care. (2) HTN (hypertension) Current Visit: No Status: Chronic Assessment and Plan: Controlled at this time. (3) Pancreas cancer Current Visit: No Status: Chronic Assessment and Plan: Per oncology. (4) Hyponatremia Current Visit: No Status: Acute Assessment and Plan: Sodium a little better today. Most likely related to ascites and hypervolemia versus SIADH. Continuing to monitor. (5) Peritoneal carcinomatosis Current Visit: No Status: Chronic Assessment and Plan: Per oncology (6) Ascites Current Visit: No Status: Chronic Assessment and Plan: Supportive care. DVT Prophylaxis: SCDs - Time Spent with Patient Total time spent is greater than 50% in coordination of care (as documented) at patient's floor/unit and/or counseling patient: Internal Medicine: Result - Labs CBC & Chem 7: 11/16/17 03:00 11/16/17 03:00 Labs: Short CBC 11/16/17 Range/Units 03:00 WBC 9.5 (4.3-11.1) K/mcL Hgb 13.2 (12.9-16.9) g/dL Hct 37.3 L (37.5-50.1) % Plt Count 395 (140-400) K/mcL Neutrophils # 7.2 (1.6-8.9) K/mcL BMP 11/16/17 03:00 Sodium 123 L Potassium 4.1 Chloride 92 L Carbon Dioxide 24 BUN 9 Creatinine 0.49 L Glucose 123 H Calcium 7.5 L - ABG Interpretation ABG results: PT/INR, D-dimer PT 15.0 Seconds (9.4-12.1) H 11/14/17 13:06 Consult Discharge Plan - Plan Referrals: Larissa Mcgowan, [employer] [Primary Care Provider] - (1) Cellulitis Qualifiers: Site of cellulitis: trunk Site of cellulitis of trunk: abdominal wall Qualified Code(s): L03.311 - Cellulitis of abdominal wall (2) HTN (hypertension) Qualifiers: Hypertension type: essential hypertension Qualified Code(s): I10 - Essential (primary) hypertension (3) Pancreas cancer Qualifiers: Pancreatic malignancy location: unspecified Qualified Code(s): C25.9 - Malignant neoplasm of pancreas, unspecified (6) Ascites Qualifiers: Ascites type: malignant Qualified Code(s): R18.0 - Malignant ascites
[2017-11-17] MEDS: Ondansetron ODT 4 MG TAB.RAPDIS SL PRN ×3 (00:20→20:58)
[2017-11-17] MEDS ORDERED: Melatonin 3 MG TABLET PO ONE (04:02)
[2017-11-17 04:07] LABS: Hematocrit 36.4 % (37.5-50.1); Hemoglobin 12.7 g/dL (12.9-16.9); Mean Corpuscular HGB Conc 34.9 g/dL (31.6-35.5); Mean Corpuscular Hemoglobin 29.1 pg (28.0-33.3); Mean Corpuscular Volume 83.5 fL (83.0-100.0); Mean Platelet Volume 8.4 fL (9.4-12.4); Platelet Count 383 K/mcL (140-400); Red Blood Count 4.36 M/mcL (4.19-5.50); Red Cell Distribution Width 13.3 % (11.5-14.5)
[2017-11-17 04:23] LABS: BUN/Creatinine Ratio 21 (6-26); Blood Urea Nitrogen 8 mg/dL (8-23); Calcium 7.4 mg/dL (8.6-10.3); Carbon Dioxide 26 mEq/L (23-29); Chloride 90 mEq/L (98-107); Glucose 144 mg/dL (70-105); Osmolality,Calculated 255 (280-300); Potassium 4.1 mEq/L (3.5-5.1); Sodium 122 mEq/L (136-145); eGFR For Non-African Americans > 60 (> 60)
[2017-11-17] MEDS: Cefepime HCl 2,000 MG in Water for inj. (sterile) 20 ML 20 ML IVP SCH ×2 (06:25→18:28)
[2017-11-17] MEDS: *HR* Enoxaparin 40 MG/0.4 ML SYRINGE SQ SCH (06:26)
[2017-11-17] MEDS: Budesonide/Formoterol 160/4.5 MDI IH SCH ×2 (07:46→19:37)
[2017-11-17] MEDS: Tiotropium 18 MCG inhalation IH SCH (07:46)
[2017-11-17] MEDS: Loratadine 10 MG TABLET PO SCH (08:17)
[2017-11-17] MEDS: Aspirin Enteric Coated 81 MG Tablet PO SCH (08:17)
[2017-11-17] MEDS: amLODIPine 5 MG TABLET PO SCH (08:17)
[2017-11-17] MEDS: Multivit/Ca/Min/Fe/FA 1 TAB TABLET PO SCH (08:17)
[2017-11-17] MEDS: Cholecalciferol (D-3) 1,000 UNIT TABLET PO SCH (08:18)
[2017-11-17] MEDS: Finasteride 5 MG TABLET PO SCH (08:18)
[2017-11-17] MEDS: Insulin LISPRO 300 UNITS/3 ML VIAL SQ SCH ×4 (08:28→21:01)
--- NOTE | 2017-11-17 09:08 | Nephrology Progress Note ---
Date of Encounter: 11/17/17 Time of Encounter: 09:05 - Assessment and Plan (1) Hyponatremia Current Visit: No Status: Acute Continue the 1.2L per day fluid restriction, plus continue the NaCl 1gm po TID; however, seeing little improvement today, I recommend starting Demeclocycline, which he may even need continued as an outpt. I have not utilized Tolvaptan d/t his liver condition (pancreatic cancer that has metastasized to his liver). I reviewed the indications, risks (e.g. DI, and etc) vs benefits (which ideally helping avoid recurrent hyponatremia as he proceeds with pancreatic cancer). I' ve started the lowest dose of 300mg po bid but it may need to be uptitrated overtime to 1200mg total dose per day (e.g. 600mg po bid) Most likely etiology is relative to pancreatic Ca, liver mets and partial urinary tract obstruction. Agree with repeat Paracentesis. Of note, partial urinary track obstructions can contribute to hyponatremia, and his bedside PVR last night was 157-200 cc, so I had recommended placement of a jasso catheter earlier this weekend. The initial CT did not demonstrate hydro. Continue the Finasteride. Of note, he should soon start a voiding trial and if unable to pass, then would rec Urology consult. Relative hypotension, and so I have decrease the lisinopril to 2.5mg po daily. My colleague Dr. Zepeda will be on-call and on-service for inpatient nephrology rounds starting tomorrow (Saturday AM). Thank you (2) Urinary retention Current Visit: Yes Status: Acute See above (3) Peritoneal carcinomatosis Current Visit: No Status: Chronic per primary team (4) Pancreas cancer Current Visit: No Status: Chronic Qualifiers: Pancreatic malignancy location: unspecified Qualified Code(s): C25.9 - Malignant neoplasm of pancreas, unspecified (5) Malfunction of peripheral inserted central catheter Current Visit: No Status: Resolved Qualifiers: Encounter type: initial encounter Qualified Code(s): T82.598A - Other mechanical complication of other cardiac and vascular devices and implants, initial encounter Subjective Principal diagnosis: Hyponatremia Interval history: Pt was s/e and did not affirm N/V/D. His was present at the bedside. We discussed his low sodium and treatment options in detail. Objective - Vital Signs Vital signs: Vital Signs Temp Pulse Resp BP Pulse Ox 11/17/17 08:05 98.4 F 90 16 112/76 93 11/17/17 07:47 18 95 11/17/17 03:51 98.7 F 96 15 121/61 94 11/16/17 20:07 99 F 103 16 118/75 92 11/16/17 19:38 16 93 11/16/17 14:51 98.1 F 97 16 102/70 92 11/16/17 10:36 97.9 F 99 16 104/66 94 Intake and Output 11/16/17 11/17/17 11/17/17 23:59 07:59 15:59 Intake Total 910 / 910 20 / 20 250 / 250 Output Total 775 / 775 150 / 150 Balance 135 / 135 -130 / -130 250 / 250 Intake: IV Fluids 270 / 270 20 / 20 250 / 250 Maxipime 2,000 MG In Water for 20 / 20 inj. (sterile) 20 ML @ 300 mls/ hr IVP Q12HR NADINE Rx#:[id number] Vancocin 1,500 MG In 0.9 % 250 / 250 250 / 250 Sodium Chloride 250 ML @ 166. 667 mls/hr IVPB Q12H NADINE Rx#: [id number] Oral 640 / 640 Output: Catheter 775 / 775 150 / 150 Other: Percent of Meal Consumed 5% Stool Size Small Stool Consistency loose # Bowel Movements 0 0 Weight 82.5 kg Blood Glucose* 218 128 - General Appearance Exam: General appearance: well-developed, well-nourished EENT: ATNC, mucous membranes moist, hearing intact, vision intact Neck: supple Respiratory: clear to auscultation bilaterally Cardiology: no edema, normal S1, normal S2 Gastrointestinal: LUQ mild tenderness, no guarding, mild distention with minimal fluid wave Integumentary: warm and dry Neurologic: alert and oriented x3 Psychiatric: flat affect, cooperative - Lab 11/17/17 03:45 11/17/17 03:45 Most recent lab results Calcium 7.4 mg/dL (8.6-10.3) L 11/17/17 03:45 Magnesium 1.7 mg/dL (1.6-2.6) 11/15/17 04:58 Urine Sodium 32.3 mEq/L 11/15/17 14:33 Consult Discharge Plan - Plan Referrals: Larissa Mcgowan, MESHA [Primary Care Provider] -
[2017-11-17] MEDS: traMADol 50 MG TABLET PO PRN ×2 (13:22→22:26)
--- NOTE | 2017-11-17 16:44 | Internal Med Progress Note ---
Hospitalist Progress Note - Encounter Date of Encounter: 11/17/17 Time of Encounter: 14:30 - Subjective Interval History: Mr Mary is currently admitted for cellulitis of abdominal wall and probable peritonitis. He remains moderate to high risk due to potential for worsening clinical status. Mr Mary is resting comfortably. He has had some leakage from the old Pleurx site. Thinks redness about the same. No fever or chills. Sodium lower today. Appetite OK. - Exam Vitals: Temp Pulse Resp BP Pulse Ox 97.9 F 87 16 123/83 94 11/17/17 11:44 11/17/17 11:44 11/17/17 11:44 11/17/17 11:44 11/17/17 11:44 Exam: General: Alert and oriented. Resting comfortably in bed at this time. Skin: Sallow. No rash noted. Head: NC, atraumatic Eyes: EOM, pupils equal, round and reactive. ENT: Mucus membranes moist. No lesion. Cardiovascular: Normal S1 & S2, no rubs, murmurs or gallops. No JVD. Pulse regular. Lungs: Diminished breath sounds. Good inspiratory effort Abdomen: Distended with fluid. Soft. Nontender. Dressing L side. Extremities: No deformity, no edema or tenderness, no joint swelling or clubbing. Neurological: Normal cognition and motor skills. No focal deficit noted. Pulses: Carotid and radial pulses normal +2. - Assessment and Plan (1) SIADH (syndrome of inappropriate ADH production) Current Visit: No Status: Chronic Assessment and Plan: Abdomen seems more distended today. He has had leakage for old site. May need paracentesis soon. (2) Cellulitis Current Visit: No Status: Acute Assessment and Plan: Due to infected peritoneal catheter. Currently on IV Cefipime and Vancomycin. Clinically slowly improving. At this time will continue same abx and treatment. Continue local wound care. Further recommendations for abx per ID service. (3) HTN (hypertension) Current Visit: No Status: Chronic Assessment and Plan: Controlled at this time. (4) Pancreas cancer Current Visit: No Status: Chronic Assessment and Plan: Per oncology. (5) Hyponatremia Current Visit: No Status: Acute Assessment and Plan: related to SIADH. Demeclocyline started today. (6) Peritoneal carcinomatosis Current Visit: No Status: Chronic Assessment and Plan: Per oncology - Time Spent with Patient Total time spent is greater than 50% in coordination of care (as documented) at patient's floor/unit and/or counseling patient: Internal Medicine: Result - Labs CBC & Chem 7: 11/17/17 03:45 11/17/17 03:45 Labs: Short CBC 11/17/17 Range/Units 03:45 WBC 9.9 (4.3-11.1) K/mcL Hgb 12.7 L (12.9-16.9) g/dL Hct 36.4 L (37.5-50.1) % Plt Count 383 (140-400) K/mcL BMP 11/17/17 03:45 Sodium 122 L Potassium 4.1 Chloride 90 L Carbon Dioxide 26 BUN 8 Creatinine 0.39 L Glucose 144 H Calcium 7.4 L - ABG Interpretation ABG results: PT/INR, D-dimer PT 15.0 Seconds (9.4-12.1) H 11/14/17 13:06 Consult Discharge Plan - Plan Referrals: Larissa Mcgowan, COMM[employer]ITY LIVING SPECIALIST [Primary Care Provider] - (1) SIADH (syndrome of inappropriate ADH production) Qualifiers: Ascites type: malignant Qualified Code(s): R18.0 - Malignant ascites (2) Cellulitis Qualifiers: Site of cellulitis: trunk Site of cellulitis of trunk: abdominal wall Qualified Code(s): L03.311 - Cellulitis of abdominal wall (3) HTN (hypertension) Qualifiers: Hypertension type: essential hypertension Qualified Code(s): I10 - Essential (primary) hypertension (4) Pancreas cancer Qualifiers: Pancreatic malignancy location: unspecified Qualified Code(s): C25.9 - Malignant neoplasm of pancreas, unspecified
[2017-11-18 04:23] LABS: BUN/Creatinine Ratio 17 (6-26); Blood Urea Nitrogen 7 mg/dL (8-23); Calcium 7.6 mg/dL (8.6-10.3); Carbon Dioxide 26 mEq/L (23-29); Chloride 92 mEq/L (98-107); Glucose 116 mg/dL (70-105); Osmolality,Calculated 255 (280-300); Sodium 123 mEq/L (136-145); eGFR For Non-African Americans > 60 (> 60)
[2017-11-18] MEDS: Cefepime HCl 2,000 MG in Water for inj. (sterile) 20 ML 20 ML IVP SCH ×2 (06:30→18:00)
[2017-11-18] MEDS: *HR* Enoxaparin 40 MG/0.4 ML SYRINGE SQ SCH (06:31)
[2017-11-18] MEDS: amLODIPine 5 MG TABLET PO SCH (08:04)
[2017-11-18] MEDS: Insulin LISPRO 300 UNITS/3 ML VIAL SQ SCH ×4 (08:15→22:11)
[2017-11-18] MEDS: Cholecalciferol (D-3) 1,000 UNIT TABLET PO SCH (08:16)
[2017-11-18] MEDS: Finasteride 5 MG TABLET PO SCH (08:16)
[2017-11-18] MEDS: Ondansetron ODT 4 MG TAB.RAPDIS SL PRN ×2 (08:16→16:10)
[2017-11-18] MEDS: Multivit/Ca/Min/Fe/FA 1 TAB TABLET PO SCH (08:16)
[2017-11-18] MEDS: Aspirin Enteric Coated 81 MG Tablet PO SCH (08:16)
[2017-11-18] MEDS: Loratadine 10 MG TABLET PO SCH (08:17)
[2017-11-18] MEDS: traMADol 50 MG TABLET PO PRN ×2 (09:13→23:37)
--- NOTE | 2017-11-18 10:30 | Internal Med Progress Note ---
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 (4) Ascites Current Visit: Yes Status: Acute Qualifiers: Ascites type: malignant Qualified Code(s): R18.0 - Malignant ascites (5) Pancreas cancer Current Visit: No Status: Chronic Qualifiers: Pancreatic malignancy location: unspecified Qualified Code(s): C25.9 - Malignant neoplasm of pancreas, unspecified (6) Malfunction of peripheral inserted central catheter Current Visit: No Status: Resolved Assessment and plan: Intervention radiologist removed the Plurex catheter Feeling better Abdominal pain 2/10 now He is on cefipime and vancomycin X day 4th Leakage is realtively less Qualifiers: Encounter type: initial encounter Qualified Code(s): T82.598A - Other mechanical complication of other cardiac and vascular devices and implants, initial encounter - Subjective Interval history: Today is 5th Day of admission .Mr. Mary is a 62 year old male with recently daignosed metastatic pancreatic adenocarcinoma with associated peritoneal carcinomatosis and extensive liver mets, malignant ascites status post Pleurx drainage catheter, asthma, COPD, DM, HTN, and diverticulosis. The patient was admitted to the hospital 11/14/17 for abdominal pain and wound site infection from drain area, suspected infected peritonitis. He reports that he was recently diagnosed with pancreatic cancer about three weeks ago with mets to the liver. He had Pleurx catheter placed 11/06/17 . He stated that he has pain , redness , swelling from drainage area. He has distension of abdomen . The pleurx drain was removed by interventional radialogist, catheter Tip sent for C/S on Infectious disease specialist was consulted .Today he is feeling better, the pain is 1-2/10, mild abdominal distension, feeling nauseated but no vomiting , no fever,. He is on cefipime and vacomycin X day 4 as per infectious disease specialist and symptomatically improving very well.Vitals : 98.3 F , 105 /70 , 94 % . His serum sodium 123 , K+ 4.0 BUN 7Creatinine 0.[address] scan reports: Pancreatic mass same as before, Hepatic metastasis /Small volume ascites/omental and peritonial implant . Oncology consultation has been done. Today he is symptomatically better , no fresh complaints, no fever, no pain abdomen , no chills, no loose stool, no nausea , vomiting. He has distended abdomen with leaking peritonal fluid from the would where Pleurx drain catheter placed to drain accumulated peritoneal fluid. He has been planned for USG abdomen to to know about accumulated peritoneal fluid . No evidence of worsening infection and abdominal distension is less than before. - Constitutional Vitals: Temp Pulse Resp BP Pulse Ox 98.3 F 100 16 98/70 93 11/18/17 07:35 11/18/17 07:35 11/18/17 07:35 11/18/17 07:35 11/18/17 07:35 General appearance: Present: cooperative, mild distress, A&O X 3, underweight, answers questions appropriately Exam: Oriented to TPP, not in acute distress, cooperative - Head Head exam: Present: atraumatic, normal inspection, normocephalic - Neck Neck exam general surgery: Present: full ROM, normal inspection, supple - Respiratory Additional comments: Normal chest expansion both side, equal air entry ,no rales and rhonchi noted - Cardiovascular Additional comments: Normal rate and rhythm, S1 S2 no murmur , rub no other added sound Internal Medicine: Result - Labs CBC & Chem 7: 11/17/17 03:45 11/18/17 03:45 Labs: BMP 11/18/17 03:45 Sodium 123 L Potassium 4.0 Chloride 92 L Carbon Dioxide 26 BUN 7 L Creatinine 0.41 L Glucose 116 H Calcium 7.6 L - ABG Interpretation ABG results: PT/INR, D-dimer PT 15.0 Seconds (9.4-12.1) H 11/14/17 13:06 - VTE Documentation of Mechanical Device: Intermittent pneumatic compression device Consult Discharge Plan - Plan Referrals: Larissa Mcgowan, [employer] [Primary Care Provider] - <Naun Alfaro - Last Filed: 11/19/17 13:42> Date of Encounter: 11/18/17 - Assessment and plan (1) SIADH (syndrome of inappropriate ADH production) Current Visit: Yes Status: Acute (2) Cellulitis Current Visit: No Status: Acute Qualifiers: Qualified Code(s): L03.311 - Cellulitis of abdominal wall (3) HTN (hypertension) Current Visit: No Status: Chronic Qualifiers: Qualified Code(s): I10 - Essential (primary) hypertension (4) Pancreas cancer Current Visit: No Status: Acute Qualifiers: Qualified Code(s): C25.9 - Malignant neoplasm of pancreas, unspecified (5) Ascites Current Visit: Yes Status: Acute Qualifiers: Qualified Code(s): R18.0 - Malignant ascites (6) Hyponatremia Current Visit: Yes Status: Acute - Constitutional Vitals: Temp Pulse Resp BP Pulse Ox 98.5 F 102 16 106/75 96 11/19/17 11:20 11/19/17 11:20 11/19/17 11:20 11/19/17 11:20 11/19/17 11:20 Internal Medicine: Result - Labs CBC & Chem 7: 11/17/17 03:45 11/18/17 03:45 - ABG Interpretation ABG results: PT/INR, D-dimer PT 15.0 Seconds (9.4-12.1) H 11/14/17 13:06 - Impressions Impressions Abdomen Ultrasound 11/18/17 20:00 IMPRESSION: Multiple hepatic lesions, compatible with metastatic disease. [id number] volume of ascites, increased from prior CT. D/ / 11/18/2017 22:55:51 Colby Rodríguez MD / [facility] Interpreting Provider: Colby Rodríguez MD - Attending Attestation Please see event note of this date.
[2017-11-18] MEDS: Budesonide/Formoterol 160/4.5 MDI IH SCH ×2 (10:55→21:29)
[2017-11-18] MEDS: Tiotropium 18 MCG inhalation IH SCH (10:55)
--- NOTE | 2017-11-18 11:06 | Infectious Disease Progress No ---
Date of Encounter: 11/18/17 Time of Encounter: 11:03 - Assessment and Plan (1) Cellulitis Current Visit: No Status: Acute Location: Left lateral abdomen. Likely secondary to Pleurx catheter placement. Causative organism unclear. CT of the abdomen and pelvis negative for underlying abscess or other acute intra-abdominal process. Continue Vancomycin IV. Pharmacy to dose. Goal trough ~15. (Day 6) Continue Cefepime 2 grams IV Q12H. (Day 6) Duration of treatment depends on the clinical picture, but likely a total of 14 days. Can likely transition to PO antibiotics when ready for discharge. Consider Bactrim DS 1 tab PO BID and Levaquin 750mg IV daily. Monitor renal function and for drug toxicity and dose-adjust antibiotics. Qualifiers: Site of cellulitis: trunk Site of cellulitis of trunk: abdominal wall Qualified Code(s): L03.311 - Cellulitis of abdominal wall (2) Abdominal pain Current Visit: Yes Status: Acute Etiology unclear, but likely secondary to cellulitis vs. peritonitis vs. cancer- related pain. Abdomen was distended, tender, and erythematous, but markedly improved today. CT of the abdomen and pelvis negative for acute changes. Unable to get peritoneal fluid cell count and culture since Pleurx catheter was removed. No cultures were obtained prior to removal, although clinically this is less likely. Previously treated for SBP with PO Cipro and completed treatment. Continue antibiotics as above. Pain management per the primary team. Qualifiers: Abdominal location: generalized Qualified Code(s): R10.84 - Generalized abdominal pain (3) Ascites Current Visit: Yes Status: Acute Likely malignant. PleurX catheter placed 11/06/17. Per the patient, minimal output from drain catheter. Catheter removed 11/14/17. Qualifiers: Ascites type: malignant Qualified Code(s): R18.0 - Malignant ascites (4) Ascites Current Visit: Yes Status: Acute Likely secondary to poor PO intake. Improved. Nephrology consulted. Appreciate recommendations. Qualifiers: Ascites type: malignant Qualified Code(s): R18.0 - Malignant ascites (5) Pancreas cancer Current Visit: No Status: Chronic Diagnosed in October 2017. Follows with [facility]. Started FOLRINOX 11/07/17. Hem/Onc consulted and following. 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 States overall he feels a little better today. Denies fevers, chills, or rigors. Denies chest pain, shortness of breath. Denies nausea, vomiting, or diarrhea. States had a formed BM this morning. Denies urinary complaints. States he ate a little bit of breakfast this morning. Denies oral thrush or new skin lesions. States abdominal pain is better today. Infect Dis PN-Objective Data - Labs CBC & Chem 7: 11/17/17 03:45 11/18/17 03:45 Labs: Laboratory Results - last 24 hr 11/17/17 11/17/17 11/17/17 08:09 11:45 17:00 Sodium Potassium Chloride Carbon Dioxide BUN Creatinine Est GFR ( Amer) Est GFR (Non-Af Amer) BUN/Creatinine Ratio Glucose POC Glucose 128 H 246 H Calculated Osmolality Calcium Vancomycin Trough 11 H 11/17/17 11/17/17 11/18/17 17:40 20:29 03:45 Sodium 123 L Potassium 4.0 Chloride 92 L Carbon Dioxide 26 BUN 7 L Creatinine 0.41 L Est GFR ( Amer) > 60 Est GFR (Non-Af Amer) > 60 BUN/Creatinine Ratio 17 Glucose 116 H POC Glucose 143 H 210 H Calculated Osmolality 255 L Calcium 7.6 L Vancomycin Trough 11/18/17 07:32 Sodium Potassium Chloride Carbon Dioxide BUN Creatinine Est GFR ( Amer) Est GFR (Non-Af Amer) BUN/Creatinine Ratio Glucose POC Glucose 150 H Calculated Osmolality Calcium Vancomycin Trough Cultures: Cultures 11/14/17 14:20 Catheter Tip Culture - Final Intravenous or Arterial Cath No growth. Serology 11/15/17 11/15/17 Range/Units 14:33 14:33 Urine Osmolality 631 (300-1090) mOsm/kg Urine Sodium 32.3 mEq/L Exam - Constitutional Vitals: Temp Pulse Resp BP Pulse Ox 97.9 F 100 16 107/72 95 11/18/17 10:48 11/18/17 10:48 11/18/17 10:55 11/18/17 10:48 11/18/17 10:55 General appearance: average body habitus, cooperative, no acute distress - Head Head exam: Present: atraumatic, normal inspection, normocephalic - Eye Eye exam: Present: EOMI, normal appearance, PERRL Pupils: Present: normal accommodation - ENT ENT exam: Present: mucous membranes moist - Neck Neck exam: Present: normal inspection - Respiratory Respiratory exam: Present: CTAB. Absent: rales, respiratory distress, rhonchi, wheezes - Cardiovascular Cardiovascular exam: Present: RRR, +S1, +S2 - GI/Abdominal GI/Abdominal exam: Present: distended, normal bowel sounds, soft, tenderness ( generalized, improved from previous exams.) Additional comments: Fried catheter noted to be draining clear yellow urine. Previously noted redness , warmth, induration, and tenderness of the left lateral abdominal wall markedly improved. - Extremities Exam Extremities exam: Present: normal inspection. Absent: joint swelling, pedal edema, tenderness - Neurological Exam Neurological exam: Present: alert, oriented X3, no focal deficits - Psychiatric Psychiatric exam: Present: normal affect, normal mood - Skin Skin exam: Present: dry, intact, normal color, warm - Additional findings Additional findings: A-port noted to the left upper chest, currently accessed with More needle with transparent dressing C/D/I without redness, warmth, or erythema. - VTE Documentation of Mechanical Device: Intermittent pneumatic compression device Consult Discharge Plan - Plan Referrals: Larissa Mcgowan, TEXTBOOK ASSOCIATE [Primary Care Provider] - - Attending Attestation I examined this patient and my medical decision-making was reviewed with the TEXTBOOK ASSOCIATE. I agree with the documented findings, disposition and treatment plan as described except to the extent set forth below.
--- NOTE | 2017-11-18 13:56 | Nephrology Progress Note ---
Date of Encounter: 11/18/17 Time of Encounter: 12:50 - Assessment and Plan (1) Hyponatremia Status: Acute Sodium slightly improved today at 123, continue fluid restriction Continue salt tabs Continue demeclocycline (2) Urinary retention Status: Acute per primary team (3) Ascites Status: Chronic per primary team Qualifiers: Ascites type: malignant Qualified Code(s): R18.0 - Malignant ascites (4) Pancreas cancer Status: Chronic per primary team Qualifiers: Pancreatic malignancy location: unspecified Qualified Code(s): C25.9 - Malignant neoplasm of pancreas, unspecified (5) Malfunction of peripheral inserted central catheter Status: Resolved removed Qualifiers: Encounter type: initial encounter Qualified Code(s): T82.598A - Other mechanical complication of other cardiac and vascular devices and implants, initial encounter Subjective Principal diagnosis: Hyponatremia Interval history: Interim events noted, pt seen and examined with no new complaints Objective - Vital Signs Vital signs: Vital Signs Temp Pulse Resp BP Pulse Ox 11/18/17 10:55 16 95 11/18/17 10:48 97.9 F 100 16 107/72 94 11/18/17 07:35 98.3 F 100 16 98/70 93 11/18/17 03:56 98.1 F 95 15 119/79 92 11/17/17 20:30 98.4 F 98 15 108/71 94 11/17/17 19:37 17 93 11/17/17 17:08 97.9 F 93 18 105/72 100 Intake and Output 11/17/17 11/18/17 11/18/17 23:59 07:59 15:59 Intake Total 270 / 270 140 / 140 490 / 490 Output Total 800 / 800 Balance 270 / 270 -660 / -660 490 / 490 Intake: IV Fluids 270 / 270 20 / 20 250 / 250 Maxipime 2,000 MG In Water for 20 / 20 20 / 20 inj. (sterile) 20 ML @ 300 mls/ hr IVP Q12HR NADINE Rx#:[id number] Vancocin 1,500 MG In 0.9 % 250 / 250 250 / 250 Sodium Chloride 250 ML @ 166. 667 mls/hr IVPB Q12H NADINE Rx#: [id number] Oral 120 / 120 240 / 240 Output: Catheter 800 / 800 Other: Meal Lunch Percent of Meal Consumed 75% Weight 85 kg Blood Glucose* 210 150 221 Patient Weight 11/18/17 23:59 Weight 85 kg - General Appearance General appearance: Present: chronically ill EENT: Present: ATNC, mucous membranes moist Neck: Present: no JVD, supple Cardiology: Present: no edema, normal S1, normal S2 Gastrointestinal: Present: tenderness (mild aroung previous drain site), no guarding, distended Integumentary: Present: warm and dry Neurologic: Present: no focal deficit Musculoskeletal: Present: no deformities Psychiatric: Present: mood/affect appropriate, cooperative - Lab 11/17/17 03:45 11/18/17 03:45 Most recent lab results Calcium 7.6 mg/dL (8.6-10.3) L 11/18/17 03:45 Magnesium 1.7 mg/dL (1.6-2.6) 11/15/17 04:58 Urine Sodium 32.3 mEq/L 11/15/17 14:33 - VTE Documentation of Mechanical Device: Intermittent pneumatic compression device Consult Discharge Plan - Plan Referrals: Larissa Mcgowan, [employer] [Primary Care Provider] - (Patient needs to call for hospital follow up per office request. Thank you) Prescriptions: levoFLOXacin [Levaquin] 750 mg PO DAILY #8 tablet
--- NOTE | 2017-11-18 15:28 | Oncology Inp Progress Note ---
Date of Encounter: 11/18/17 Time of Encounter: 15:26 (1) Ascites Current Visit: Yes Status: Acute Qualifiers: Ascites type: malignant Qualified Code(s): R18.0 - Malignant ascites (2) Abdominal pain Current Visit: Yes Status: Acute Assessment and plan: resolved. Qualifiers: Abdominal location: generalized Qualified Code(s): R10.84 - Generalized abdominal pain (3) Hyponatremia Current Visit: Yes Status: Acute Assessment and plan: fro sIADH. Renal following. Na is back to his baseline low level. on fluid restriction, salt tablets, demclocycline. (4) SIADH (syndrome of inappropriate ADH production) Current Visit: Yes Status: Acute Assessment and plan: as above. (5) Cellulitis Current Visit: No Status: Acute Qualifiers: Site of cellulitis: trunk Site of cellulitis of trunk: abdominal wall Qualified Code(s): L03.311 - Cellulitis of abdominal wall (6) Pancreas cancer Current Visit: No Status: Chronic Assessment and plan: Mass and omental implants are stable. He overall tolerated the initial cycle of FOLFIRINOX reasonably well. No significant hematologic toxicity. C2 planned for this coming in 3 days. Functional status impacted by his bandage falling off and his jasso. PLan to d/c jasso and apply abdominal binders to maintain the bandage in place. There is consideration of potentially another paracentesis. PLan for transition to oral abx soon for his cellulitis and discharge home thereafter. f/u with Dr. Constance benito planned. Qualifiers: Pancreatic malignancy location: unspecified Qualified Code(s): C25.9 - Malignant neoplasm of pancreas, unspecified Oncology: Subj Interval history: Overall, he is feeling better since the peritoneal catheter removal. Ascites fluid negative for SBP but likely positive for carcinoma c/w his peritoneal carcinomatosis of his pancreatic cancer. He hasnt gotten up and around much because of the jasso catheter and the leaking of his abdominal bandage over the peritoneal catheter site. He is eating 2-3 enures per day. Appetite is decreased. - Constitutional Vitals: Vital Signs Temp Pulse Resp BP Pulse Ox 11/18/17 14:46 98.3 F 100 16 104/71 95 11/18/17 10:55 16 95 11/18/17 10:48 97.9 F 100 16 107/72 94 11/18/17 07:35 98.3 F 100 16 98/70 93 11/18/17 03:56 98.1 F 95 15 119/79 92 11/17/17 20:30 98.4 F 98 15 108/71 94 11/17/17 19:37 17 93 11/17/17 17:08 97.9 F 93 18 105/72 100 Intake and Output 11/18/17 11/18/17 11/18/17 00:59 08:59 16:59 Intake Total 270 / 270 390 / 390 360 / 360 Output Total 800 / 800 300 / 300 Balance 270 / 270 -410 / -410 60 / 60 Intake: IV Fluids 270 / 270 270 / 270 Maxipime 2,000 MG In Water for 20 20 / 20 inj. (sterile) 20 ML @ 300 mls/ hr IVP Q12HR NADINE Rx#:[id number] Vancocin 1,500 MG In 0.9 % 250 / 250 250 / 250 Sodium Chloride 250 ML @ 166. 667 mls/hr IVPB Q12H NADINE Rx#: [id number] Oral 120 / 120 360 / 360 Output: Catheter 800 / 800 300 / 300 Other: Meal Lunch Percent of Meal Consumed 75% Weight 85 kg Blood Glucose* 210 150 221 Patient Weight 11/19/17 00:59 Weight 85 kg - Eye Eye exam: Present: EOMI - Neck Neck exam: Present: normal inspection. Absent: lymphadenopathy - Respiratory Respiratory exam: Absent: accessory muscle use, respiratory distress, stridor - Cardiovascular Cardiovascular exam: Present: RRR. Absent: irregular rhythm - GI/Abdominal GI/Abdominal exam: Present: distended, soft - Neurological Exam Neurological exam: Present: alert, oriented X3 - Psychiatric Psychiatric exam: Present: normal affect. Absent: depressed Oncology: Obj Data - Labs CBC & Chem 7: 11/17/17 03:45 11/18/17 03:45 Labs: Laboratory Results - last 24 hr 11/17/17 11/17/17 11/17/17 08:09 11:45 17:00 Sodium Potassium Chloride Carbon Dioxide BUN Creatinine Est GFR ( Amer) Est GFR (Non-Af Amer) BUN/Creatinine Ratio Glucose POC Glucose 128 H 246 H Calculated Osmolality Calcium Vancomycin Trough 11 H 11/17/17 11/17/17 11/18/17 17:40 20:29 03:45 Sodium 123 L Potassium 4.0 Chloride 92 L Carbon Dioxide 26 BUN 7 L Creatinine 0.41 L Est GFR ( Amer) > 60 Est GFR (Non-Af Amer) > 60 BUN/Creatinine Ratio 17 Glucose 116 H POC Glucose 143 H 210 H Calculated Osmolality 255 L Calcium 7.6 L Vancomycin Trough 11/18/17 11/18/17 07:32 10:42 Sodium Potassium Chloride Carbon Dioxide BUN Creatinine Est GFR ( Amer) Est GFR (Non-Af Amer) BUN/Creatinine Ratio Glucose POC Glucose 150 H 221 H Calculated Osmolality Calcium Vancomycin Trough - ABG Interpretation ABG results: PT/INR, D-dimer PT 15.0 Seconds (9.4-12.1) H 11/14/17 13:06 Consult Discharge Plan - Plan Referrals: Larissa Mcgowan CNP [Primary Care Provider] - Inpatient Charges Provider: Dr. Abraham Swain Follow Up: [id number]
--- NOTE | 2017-11-18 19:46 | Event Note ---
Date of Encounter: 11/18/17 Time of Encounter: 14:30 I examined this patient and my medical decision-making was reviewed with the Resident Physician on 11/18/17. I agree with the documented findings, disposition and treatment plan as described except to the extent set forth below. Mr Mary is currently admitted for cellulitis of abdominal wall and possible peritonitis. He remains moderate to high risk due to potential for worsening clinical status. Mr Mary is feeling OK. No pain. No CP or SOB. Still leaking from site on abdomen. No fever or chills. Exam alert Comfortable Mucus membranes dry Heart reg No wheeze Abd soft with fluid wave Less erythema on abdomen. I/P 1. Cellulitis of abdomen 2. Malfunction of Pleuryx cathter in peritoneum 3. Ascites Possible paracentesis prior to discharge Further diagnoses and plan as per progress note of this date.
[2017-11-19] MEDS: Ondansetron ODT 4 MG TAB.RAPDIS SL PRN ×2 (00:31→08:28)
[2017-11-19] MEDS: Cefepime HCl 2,000 MG in Water for inj. (sterile) 20 ML 20 ML IVP SCH (06:23)
[2017-11-19] MEDS: *HR* Enoxaparin 40 MG/0.4 ML SYRINGE SQ SCH (06:23)
[2017-11-19] MEDS: Tiotropium 18 MCG inhalation IH SCH (07:50)
[2017-11-19] MEDS: Budesonide/Formoterol 160/4.5 MDI IH SCH (07:50)
[2017-11-19] MEDS: Insulin LISPRO 300 UNITS/3 ML VIAL SQ SCH ×2 (07:53→12:13)
[2017-11-19] MEDS: amLODIPine 5 MG TABLET PO SCH (07:56)
[2017-11-19] MEDS: Aspirin Enteric Coated 81 MG Tablet PO SCH (08:27)
[2017-11-19] MEDS: Cholecalciferol (D-3) 1,000 UNIT TABLET PO SCH (08:28)
[2017-11-19] MEDS: Loratadine 10 MG TABLET PO SCH (08:28)
[2017-11-19] MEDS: Finasteride 5 MG TABLET PO SCH (08:28)
[2017-11-19] MEDS: Multivit/Ca/Min/Fe/FA 1 TAB TABLET PO SCH (08:28)
--- NOTE | 2017-11-19 10:08 | Internal Med Progress Note ---
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 Mary is a 62 year old male with recently daignosed metastatic pancreatic adenocarcinoma with associated peritoneal carcinomatosis and extensive liver mets, malignant ascites status post Pleurx drainage catheter, asthma, COPD, DM, HTN, and diverticulosis. The patient was admitted to the hospital 11/14/17 for abdominal pain and wound site infection from drain area, suspected infected peritonitis. . He had Pleurx catheter placed on 11/06/17 . He stated that he has pain , redness , swelling from drainage area. and moderate distension of abdomen .The pleurx drain was removed by interventional radialogist, catheter Tip sent for C/S on Infectious disease specialist was consulted .Today he is feeling better, the pain is 1-2/ 10, mild abdominal distension, feeling nauseated but no vomiting , no fever,. He is on cefipime and vacomycin X day 5 as per infectious disease specialist and symptomatically improving very well.Vitals : Weight 85 kg increased than before, pulse 99 ,98.4 F , 111/73 , 93 % . His serum sodium 123 , K+ 4.0 BUN [address] scan reports: Pancreatic mass same as before, Hepatic metastasis /Small volume ascites/omental and peritonial implant . Oncology consultation has been done.Today he is symptomatically better , no fresh complaints, no fever, no pain abdomen , no chills, no loose stool, no nausea , vomiting.He denies any leakage from wound site.Patient USG report is back : USG abodomen shows : Small to moderate ascities but more amount than previous CT report and multiple hepatic and peritoneal metastasis We have planned to discharge him Today on oral antibiotics and he will come for 2nd cycle of Chemotherapy on . - Constitutional Vitals: Temp Pulse Resp BP Pulse Ox 98.4 F 99 16 111/73 93 11/19/17 07:51 11/19/17 07:51 11/19/17 07:51 11/19/17 07:51 11/19/17 07:51 General appearance: Present: cooperative, mild distress, A&O X 3, underweight, answers questions appropriately Exam: Oriented to TPP, not in much distress, cooperative - Head Head exam: Present: atraumatic, normal inspection, normocephalic - Neck Additional comments: No JVD, supple , no lymphnode enlargement - Respiratory Additional comments: Normal air entry both side, equal chest expansion,no rales, no crepitation, - Cardiovascular Additional comments: Normal rate and rhythm, S1 S2 normal,no murmur or added sound present, - GI/Abdominal Additional comments: Soft, warm , moderately distended, hepatomegaly was present, dullness +, BS+, no rigidity and gurding, no sign of peritoneal irritation, wound dressing o left lower quardant , no leakage present - Extremities Exam Additional comments: No calf swelling , no peripheral oedema, no ulcers Internal Medicine: Result - Labs CBC & Chem 7: 11/17/17 03:45 11/18/17 03:45 - ABG Interpretation ABG results: PT/INR, D-dimer PT 15.0 Seconds (9.4-12.1) H 11/14/17 13:06 - Impressions Impressions Abdomen Ultrasound 11/18/17 20:00 IMPRESSION: Multiple hepatic lesions, compatible with metastatic disease. [id number] volume of ascites, increased from prior CT. D/ / 11/18/2017 22:55:51 Colby Rodríguez MD / [facility] Interpreting Provider: Colby Rodríguez MD - VTE Documentation of Mechanical Device: Intermittent pneumatic compression device Consult Discharge Plan - Plan Referrals: Larissa Mcgowan, [employer]PERATOR [Primary Care Provider] -
[2017-11-19 11:21] VITALS: BP 106/75
--- NOTE | 2017-11-19 11:56 | Infectious Disease Progress No ---
Date of Encounter: 11/19/17 Time of Encounter: 11:54 - Assessment and Plan (1) Cellulitis Status: Resolved Location: Left lateral abdomen. Likely secondary to Pleurx catheter placement. Causative organism unclear. CT of the abdomen and pelvis negative for underlying abscess or other acute intra-abdominal process. Continue Vancomycin IV. Pharmacy to dose. Goal trough ~15. (Day 7) Continue Cefepime 2 grams IV Q12H. (Day 7) Duration of treatment depends on the clinical picture, but likely a total of 14 days. Can likely transition to PO antibiotics when ready for discharge. Consider Bactrim DS 1 tab PO BID and Levaquin 750mg IV daily. Monitor renal function and for drug toxicity and dose-adjust antibiotics. Qualifiers: Site of cellulitis: trunk Site of cellulitis of trunk: abdominal wall Qualified Code(s): L03.311 - Cellulitis of abdominal wall (2) Abdominal pain Status: Acute Etiology unclear, but likely secondary to cellulitis vs. peritonitis vs. cancer- related pain. Abdomen was distended, tender, and erythematous, but markedly improved today. CT of the abdomen and pelvis negative for acute changes. Unable to get peritoneal fluid cell count and culture since Pleurx catheter was removed. No cultures were obtained prior to removal, although clinically this is less likely. Previously treated for SBP with PO Cipro and completed treatment. Continue antibiotics as above. Pain management per the primary team. Qualifiers: Abdominal location: generalized Qualified Code(s): R10.84 - Generalized abdominal pain (3) Ascites Status: Acute Likely malignant. PleurX catheter placed 11/06/17. Per the patient, minimal output from drain catheter. Catheter removed 11/14/17. Abdominal UTS showed small-moderate volume ascites. Per IR today, not enough to drain. Qualifiers: Ascites type: malignant Qualified Code(s): R18.0 - Malignant ascites (4) Pancreas cancer Status: Chronic Diagnosed in October 2017. Follows with [facility]. Started FOLRINOX 11/07/17. Hem/Onc consulted and following. Qualifiers: Pancreatic malignancy location: unspecified Qualified Code(s): C25.9 - Malignant neoplasm of pancreas, unspecified (5) Hyponatremia Status: Acute Improved. Management per the nephrology team. (6) Liver metastases Status: Acute (7) Diabetes 1.5, managed as type 2 Status: Chronic (8) HTN (hypertension) Status: Chronic Qualifiers: Hypertension type: essential hypertension Qualified Code(s): I10 - Essential (primary) hypertension - Subjective Interval history: Patient seen and examined with his at the bedside. States overall he feels better today. Denies fevers, chills, or rigors. Denies chest pain, shortness of breath. Denies nausea, vomiting, or diarrhea. States had a formed BM this morning. Denies urinary complaints. States he ate a little bit of breakfast this morning. Denies oral thrush or new skin lesions. Reports some leaking from the previous pleurx catheter site, currently has abdominal binder. Denies abdominal pain. Infect Dis PN-Objective Data - Labs CBC & Chem 7: 11/17/17 03:45 11/18/17 03:45 Labs: Laboratory Results - last 24 hr 11/18/17 11/18/17 11/19/17 16:18 21:44 11:17 POC Glucose 152 H 126 H 213 H Cultures: Cultures 11/14/17 14:20 Catheter Tip Culture - Final Intravenous or Arterial Cath No growth. Serology 11/15/17 11/15/17 Range/Units 14:33 14:33 Urine Osmolality 631 (300-1090) mOsm/kg Urine Sodium 32.3 mEq/L - Impressions Impressions Abdomen Ultrasound 11/18/17 20:00 IMPRESSION: Multiple hepatic lesions, compatible with metastatic disease. [id number] volume of ascites, increased from prior CT. D/ / 11/18/2017 22:55:51 Colby Rodríguez MD / [facility] Interpreting Provider: Colby Rodríguez MD Exam - Constitutional Vitals: Temp Pulse Resp BP Pulse Ox 98.5 F 102 16 106/75 96 11/19/17 11:20 11/19/17 11:20 11/19/17 11:20 11/19/17 11:20 11/19/17 11:20 General appearance: average body habitus, cooperative, no acute distress - Head Head exam: Present: atraumatic, normal inspection, normocephalic - Eye Eye exam: Present: EOMI, normal appearance, PERRL Pupils: Present: normal accommodation - ENT ENT exam: Present: mucous membranes moist - Neck Neck exam: Present: normal inspection - Respiratory Respiratory exam: Present: CTAB. Absent: rales, respiratory distress, rhonchi, wheezes - Cardiovascular Cardiovascular exam: Present: RRR, +S1, +S2 - GI/Abdominal GI/Abdominal exam: Present: distended, normal bowel sounds, soft, tenderness ( RUQ) Additional comments: Pleurx catheter site with dressing C/D/I. Abdominal binder in place. - Extremities Exam Extremities exam: Present: normal inspection. Absent: joint swelling, pedal edema, tenderness - Neurological Exam Neurological exam: Present: alert, oriented X3, no focal deficits - Psychiatric Psychiatric exam: Present: normal affect, normal mood - Skin Skin exam: Present: dry, intact, normal color, warm - Additional findings Additional findings: A-port noted to the left upper chest, currently accessed with More needle, with transparent dressing C/D/I. No erythema, warmth, or drainage noted. - VTE Documentation of Mechanical Device: Intermittent pneumatic compression device Consult Discharge Plan - Plan Referrals: Larissa Mcgowan, [employer] MEDICAL EXAMINER [Primary Care Provider] - (Patient needs to call for hospital follow up per office request. Thank you) Prescriptions: Demeclocycline [Declomycin] 300 mg PO Q12HR #60 tablet levoFLOXacin [Levaquin] 750 mg PO DAILY #8 tablet Lisinopril [Zestril] 2.5 mg PO DAILY #30 tablet Sulfamethoxazole/Trimeth DS [Bactrim DS] 1 each PO BID #16 tablet - Attending Attestation I examined this patient and my medical decision-making was reviewed with the Resident Physician. I agree with the documented findings, disposition and treatment plan as described except to the extent set forth below.
--- NOTE | 2017-11-19 12:59 | Discharge Summary ---
<Ferdinand Nguyễn P - Last Filed: 11/19/17 14:00> - NOTES TO OUTPATIENT PROVIDER Notes to Outpatient Provider: He will follow up with Oncologist for second cycle chemo on and PCP Orders not resulted at time of discharge: Pending orders 11/14/17 14:37 Cytology [PTH] Stat 11/19/17 09:12 IR US abdomen limited [IR] Stat 11/19/17 17:00 Vancomycin,Trough Timed Date of Encounter: 11/19/17 Time of Encounter: 11:00 - Discharge Diagnosis (1) Acute generalized peritonitis Priority: Primary Status: Acute Comments: Catheter tip Cultures remained sterile. Pain immediately improved upon removal of the Pleurx catheter. Not entirely clear he had peritonitis. He is clinically improving with removal of catheter and IV antibiotics . Appreciate ID recommendations. We will discharge him on oral antibiotics. (2) Cellulitis Priority: Primary Status: Acute Comments: The pain and swelling over the catheter drain area has been resolved . He has no pain and tenderness in the area he has had before . 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 We will resume his OHA at home (4) Ascites Status: Acute Qualifiers: Ascites type: malignant Qualified Code(s): R18.0 - Malignant ascites (5) Pancreas cancer Priority: Primary Status: Acute Comments: Status post cycle 1 of FOLFIRINOX chemotherapy. He has been scheduled for second cycle of Chemotherapy on . Oncologist physician has reviewed and discussed his status while he was admitted at hospital . Qualifiers: Pancreatic malignancy location: unspecified Qualified Code(s): C25.9 - Malignant neoplasm of pancreas, unspecified Hospital course: Mr. Mary is a 62 year old male with recently diagnosed metastatic pancreatic adenocarcinoma with associated peritoneal carcinomatosis and extensive liver mets, malignant ascites status with post Pleurx drainage catheter, asthma, COPD , DM, HTN, and diverticulosis. The patient was admitted to the hospital on for abdominal pain and wound site infection from drain area, suspected infected peritonitis. He had Pleurx catheter placed on 11/06/17 and he developed pain , redness , swelling from drainage area. and moderate distension of abdomen .The pleurx drain was removed by interventional radialogist. He was placed on cefipime and vacomycin during his stay in this hospital as per infectious disease specialist recommendation and he is symptomatically improving with removal of catheter and Iv antibiotics . His recent CT scan reports: Pancreatic mass same as before, Hepatic metastasis /Small volume ascites/omental and peritonial implant , Recent USG abdomen shows : Small to moderate ascities but more amount than previous CT report and multiple hepatic and peritoneal metastasis He is hemodynamically stable today : Weight 85 kg increased a little bit as compared to before , pulse 99 ,98.4 F , 111/73 , sat 93 % . His serum sodium 123 , K+ 4.0 BUN 7 Creatinine 0.41 . Oncologist and infectious disease have been consulted during his stay at hospital .Today he is symptomatically better , no fresh complaints, no fever, no pain abdomen , no chills, no loose stool, no nausea ,vomiting.He denies any leakage from wound site and increased abdominal distension . We have planned to discharge him today on oral antibiotics and he will come for 2nd cycle of Chemotherapy on . - Time Spent with Patient Total time spent providing and/or coordinating discharge services: - Discharge Medications Prescriptions: Demeclocycline [Declomycin] 300 mg PO Q12HR #60 tablet levoFLOXacin [Levaquin] 750 mg PO DAILY #8 tablet Lisinopril [Zestril] 2.5 mg PO DAILY #30 tablet Sulfamethoxazole/Trimeth DS [Bactrim DS] 1 each PO BID #16 tablet Home Medications: Amlodipine Besylate/Benazepril [Lotrel 10-20 mg Capsule] 1 cap PO DAILY [History] Lansoprazole [Prevacid] 30 mg PO BID 12/24/16 [History] Montelukast [Singulair] 10 mg PO HS 12/24/16 [History] Simvastatin [Zocor] 20 mg PO HS 12/24/16 [History] metFORMIN [Glucophage] 500 mg PO BIDWM 12/24/16 [History] Aspirin Enteric Coated [Aspirin EC] 81 mg PO DAILY #30 12/25/16 [Rx] Loratadine [Claritin] 10 mg PO DAILY tab 12/25/16 [Rx] Albuterol Neb [Proventil Neb] 2.5 mg IH Q4HR PRN 02/20/17 [History] Albuterol Sulfate [Albuterol Inhaler] 2 puff IH Q4H PRN 02/20/17 [History] Ergocalciferol (VITAMIN D2) [Vitamin D] 400 unit PO DAILY 02/20/17 [History] Glucosamn/Condroitn/C/Mn/[place] [[facility]vs Glucosamine Chondroitin Tb] 2 tab PO DAILY 02/20/17 [History] Finasteride [Proscar] 5 mg PO DAILY 05/29/17 [History] Budesonide/Formoterol 160/4.5 [Symbicort 160/4.5] 2 puff IH BIDR 10/25/17 [ History] Tiotropium [Spiriva] 18 mcg IH DAILY 10/25/17 [History] Sennosides/Docusate Sodium [Senna Plus] 2 each PO BID #60 tablet 10/30/17 [Rx] Sodium Chloride [Sodium Chloride Tab] 1 gm PO TID #90 tablet 10/30/17 [Rx] Lidocaine/Prilocaine [Emla] 1 appl TP DAILY #30 gm 11/05/17 [Rx] Metoclopramide HCl 5 mg PO QIDAC #150 tablet 11/05/17 [Rx] Ondansetron [Zofran ODT] 8 mg SL Q8H PRN #30 tab 11/05/17 [Rx] Albuterol Sulfate [Proventil] 4 mg PO TID 11/14/17 [History] Oxycodone HCl [Oxaydo] 10 mg PO Q4H PRN 11/14/17 [History] Oxycodone HCl [Oxaydo] 15 mg PO Q4H PRN 11/14/17 [History] Demeclocycline [Declomycin] 300 mg PO Q12HR #60 tablet 11/19/17 [Rx] Lisinopril [Zestril] 2.5 mg PO DAILY #30 tablet 11/19/17 [Rx] Sulfamethoxazole/Trimeth DS [Bactrim DS] 1 each PO BID #16 tablet 11/19/17 [Rx] levoFLOXacin [Levaquin] 750 mg PO DAILY #8 tablet 11/19/17 [Rx] Allergies/Adverse Reactions: 3 Allergy/AdvReac Type Severity Reaction Status Date / Time azithromycin Allergy Rash Verified 02/20/17 10:17 [From Zithromax Z-Michael] ciprofloxacin [From Cipro] Allergy Rash Verified 11/06/17 08:50 mold Allergy Rash Verified 02/20/17 10:17 Amoxicillin [From Augmentin] AdvReac Gastrointestinal Verified 11/06/17 08:50 Upset clavulanic acid AdvReac Gastrointestinal Verified 11/06/17 08:50 [From Augmentin] Upset dust Allergy Wheezing Uncoded 10/23/16 10:10 Date of admission: 11/14/17 15:48 Primary care physician: Larissa Mcgowan CNP Consults: 11/14/17 12:43 Consult to Interventional Radiology [CONS] Routine Consulting Provider: Radiology Interventional Cols Reason for Consult: pleurx cath malfunction and need for paracenthesis please send for cell count, gm stain and cultures Time Notified: 12:44 Call Completed: Yes 11/14/17 12:45 Consult to Oncology [CONS] Routine Consulting Provider: [facility] Reason for Consult: pt sent from ur office Time Notified: 12:46 Call Completed: No 11/14/17 12:48 Consult to Infectious Diseases [CONS] Routine Consulting Provider: Infectious Disease [facility] Reason for Consult: abd wall cellulitis and possibe SBP Time Notified: 12:49 Call Completed: No 11/14/17 14:23 Consult to Nephrology [CONS] Routine Consulting Provider: [facility]/ORIANDRES/JUNIOR/BROWN Reason for Consult: hyponatremia Time Notified: 14:24 Call Completed: No - Constitutional Vitals: Temp Pulse Resp BP Pulse Ox 98.5 F 102 16 106/75 96 11/19/17 11:20 11/19/17 11:20 11/19/17 11:20 11/19/17 11:20 11/19/17 11:20 General appearance: Present: cooperative, mild distress, A&O X 3, underweight, answers questions appropriately Exam: Oriented to TPP, not in much distress, cooperative - Head Head exam: Present: atraumatic, normal inspection, normocephalic - Neck Neck exam general surgery: Present: full ROM, supple - Respiratory Additional comments: Normal chest expansion, equal air entry in both side of lung, no rales and crepitation, - Cardiovascular Additional comments: Normal rate and rhythm, S1S2 normal, no murmur, rub or added sound - GI/Abdominal Additional comments: Abdomen is soft, warm ,mild to moderately distended ,minimally diffuse tenderness, hepatomegaly was present but not tender, sealed dressing applied to left lower quardant of abdomen, no evidence of wound site infection or redness. - Extremities Exam Additional comments: No peripheral edema, no calf swelling . - Psychiatric Psychiatric exam: Present: anxious, normal affect, normal mood - Patient Status Disposition: Home Health Service Condition: Fair Overall status at discharge: other - Discharge Instructions Follow Up With: Larissa Mcgowan, [facility] [employer] [Primary Care Provider] - (Patient needs to call for hospital follow up per office request. Thank you) - Diet and Activity Activity: resume usual activities as tolerated Diet: regular diet - VTE Documentation of Mechanical Device: Intermittent pneumatic compression device <Naun Alfaro - Last Filed: 11/19/17 17:58> Orders not resulted at time of discharge: Pending orders 11/14/17 14:37 Cytology [PTH] Stat 11/19/17 09:12 IR US abdomen limited [IR] Stat 11/19/17 17:00 Vancomycin,Trough Timed Date of Encounter: 11/19/17 - Discharge Diagnosis (1) SIADH (syndrome of inappropriate ADH production) Priority: Secondary Status: Chronic (2) Cellulitis Status: Resolved Qualifiers: Site of cellulitis: trunk Site of cellulitis of trunk: abdominal wall Qualified Code(s): L03.311 - Cellulitis of abdominal wall (3) HTN (hypertension) Priority: Secondary Status: Chronic Qualifiers: Hypertension type: essential hypertension Qualified Code(s): I10 - Essential (primary) hypertension (4) Pancreas cancer Priority: Secondary Status: Chronic Qualifiers: Pancreatic malignancy location: unspecified Qualified Code(s): C25.9 - Malignant neoplasm of pancreas, unspecified (5) Ascites Priority: Secondary Status: Chronic Qualifiers: Ascites type: malignant Qualified Code(s): R18.0 - Malignant ascites (6) Hyponatremia Priority: Secondary Status: Acute Hospital course: Mr. Mary is a 62 year old male - Time Spent with Patient Total time spent providing and/or coordinating discharge services: 38min Date of admission: 11/14/17 15:48 Primary care physician: Larissa Mcgowan CNP Consults: 11/14/17 12:43 Consult to Interventional Radiology [CONS] Routine Consulting Provider: Radiology Interventional Cols Reason for Consult: pleurx cath malfunction and need for paracenthesis please send for cell count, gm stain and cultures Time Notified: 12:44 Call Completed: Yes 11/14/17 12:45 Consult to Oncology [CONS] Routine Consulting Provider: [facility] Reason for Consult: pt sent from ur office Time Notified: 12:46 Call Completed: No 11/14/17 12:48 Consult to Infectious Diseases [CONS] Routine Consulting Provider: Infectious Disease [facility] Reason for Consult: abd wall cellulitis and possibe SBP Time Notified: 12:49 Call Completed: No 11/14/17 14:23 Consult to Nephrology [CONS] Routine Consulting Provider: [facility]/TYLER/JUNIOR/SUJIT Reason for Consult: hyponatremia Time Notified: 14:24 Call Completed: No Discharging clinician: Naun Alfaro Anticipated date of discharge: 11/19/17 - Constitutional Vitals: Temp Pulse Resp BP Pulse Ox 98.5 F 102 16 106/75 96 11/19/17 11:20 11/19/17 11:20 11/19/17 11:20 11/19/17 11:20 11/19/17 11:20 - Patient Status Functional capacity at discharge: independent ambulation Overall status at discharge: patient is progressing back to baseline - Attending Attestation I examined this patient and my medical decision-making was reviewed with the Resident Physician on 11/19/17. I agree with the documented findings, disposition and treatment plan as described except to the extent set forth below. Mr Mary has been admitted for cellulitis of abdominal wall due to pleurx catheter and possible peritonitis. He has received IV abx with improvement. He is tolerating a diet. His sodium was low and he was placed on demeclocyline. He did not have enough ascities fluid to tap. He is now afebrile and ready for discharge home on PO abx. Exam alert Comfortable Mucus membranes moist Heart not tachy No wheeze Abd nontender Plan DC home today Complete PO abx Also on Lisinopril and demeclocycline
[2017-11-19] MEDS ORDERED: Aminoglycoside Consult 1 EACH MC ONE (16:04)
--- NOTE | 2017-11-19 16:54 | Physician Discharge Referral ---
Home Health/Hosp Referral Info Transfer to: Home Health Provider in Charge Post Discharge: PCP - Diagnosis (1) SIADH (syndrome of inappropriate ADH production) Priority: Secondary Status: Chronic (2) Cellulitis Priority: Primary Status: Resolved (3) HTN (hypertension) Priority: Secondary Status: Chronic (4) Pancreas cancer Priority: Secondary Status: Chronic (5) Ascites Priority: Secondary Status: Chronic (6) Hyponatremia Priority: Secondary Status: Acute - Respiratory Orders None Smoking Cessation: Smoking cessation has been advised. For more information, call the [place] Tobacco Quit Line at 0-557-QZME-NOW. - Diet/Nutrition Diet/Nutrition Orders: Regular - Activity Activity Orders: Up ad mike - Services Needed Following services are medically necessary services: Nursing, Physical Therapy, Occupational Therapy - Transfer Medications Prescriptions: Demeclocycline [Declomycin] 300 mg PO Q12HR #60 tablet levoFLOXacin [Levaquin] 750 mg PO DAILY #8 tablet Lisinopril [Zestril] 2.5 mg PO DAILY #30 tablet Sulfamethoxazole/Trimeth DS [Bactrim DS] 1 each PO BID #16 tablet Home Medications: Amlodipine Besylate/Benazepril [Lotrel 10-20 mg Capsule] 1 cap PO DAILY [History] Lansoprazole [Prevacid] 30 mg PO BID 12/24/16 [History] Montelukast [Singulair] 10 mg PO HS 12/24/16 [History] Simvastatin [Zocor] 20 mg PO HS 12/24/16 [History] metFORMIN [Glucophage] 500 mg PO BIDWM 12/24/16 [History] Aspirin Enteric Coated [Aspirin EC] 81 mg PO DAILY #30 12/25/16 [Rx] Loratadine [Claritin] 10 mg PO DAILY tab 12/25/16 [Rx] Albuterol Neb [Proventil Neb] 2.5 mg IH Q4HR PRN 02/20/17 [History] Albuterol Sulfate [Albuterol Inhaler] 2 puff IH Q4H PRN 02/20/17 [History] Ergocalciferol (VITAMIN D2) [Vitamin D] 400 unit PO DAILY 02/20/17 [History] Glucosamn/Condroitn/C/Mn/[place] [[facility]vs Glucosamine Chondroitin Tb] 2 tab PO DAILY 02/20/17 [History] Finasteride [Proscar] 5 mg PO DAILY 05/29/17 [History] Budesonide/Formoterol 160/4.5 [Symbicort 160/4.5] 2 puff IH BIDR 10/25/17 [ History] Tiotropium [Spiriva] 18 mcg IH DAILY 10/25/17 [History] Sennosides/Docusate Sodium [Senna Plus] 2 each PO BID #60 tablet 10/30/17 [Rx] Sodium Chloride [Sodium Chloride Tab] 1 gm PO TID #90 tablet 10/30/17 [Rx] Lidocaine/Prilocaine [Emla] 1 appl TP DAILY #30 gm 11/05/17 [Rx] Metoclopramide HCl 5 mg PO QIDAC #150 tablet 11/05/17 [Rx] Ondansetron [Zofran ODT] 8 mg SL Q8H PRN #30 tab 11/05/17 [Rx] Albuterol Sulfate [Proventil] 4 mg PO TID 11/14/17 [History] Oxycodone HCl [Oxaydo] 10 mg PO Q4H PRN 11/14/17 [History] Oxycodone HCl [Oxaydo] 15 mg PO Q4H PRN 11/14/17 [History] Demeclocycline [Declomycin] 300 mg PO Q12HR #60 tablet 11/19/17 [Rx] Lisinopril [Zestril] 2.5 mg PO DAILY #30 tablet 11/19/17 [Rx] Sulfamethoxazole/Trimeth DS [Bactrim DS] 1 each PO BID #16 tablet 11/19/17 [Rx] levoFLOXacin [Levaquin] 750 mg PO DAILY #8 tablet 11/19/17 [Rx] Allergies/Adverse Reactions: 3 Allergy/AdvReac Type Severity Reaction Status Date / Time azithromycin Allergy Rash Verified 02/20/17 10:17 [From Zithromax Z-Michael] ciprofloxacin [From Cipro] Allergy Rash Verified 11/06/17 08:50 mold Allergy Rash Verified 02/20/17 10:17 Amoxicillin [From Augmentin] AdvReac Gastrointestinal Verified 11/06/17 08:50 Upset clavulanic acid AdvReac Gastrointestinal Verified 11/06/17 08:50 [From Augmentin] Upset dust Allergy Wheezing Uncoded 07/18/17 10:10 Certification: Further, I certify that my clinical findings support that this patient is homebound (i.e. absences from home require considerable and taxing effort and are for medical reasons or caodaism services or infrequently or short duration when for other reasons) because: Homebound Reason: Patient requires assistance of a person or device to safely leave home, Severity of cardiac or pulmonary status limits activity tolerance Attestation: My signature below is to certify that this patient is under my care and that I, or nurse practitioner, or a physician's minister assistant working with me, has a face-to -face encounter with this patient.
== END 2017-11-19 16:05 | disposition home health service (06) | DRG 919 ==
LOC: 3ANU → SUATTDRO 15:48
PROVIDERS: ADMIT Internal Medicine Cardiovascular Disease; ATTEND Internal Medicine

== ENCOUNTER 2017-12-09 04:26 | Inpatient (IN) ==
[2017-12-09] MEDS ORDERED: 0.9 % Sodium Chloride 1,000 ML IVC ONE ×2 (04:42→07:59)
[2017-12-09] MEDS ORDERED: Isovue-370 500 ML INFUS..BTL IV ONE (04:43)
--- NOTE | 2017-12-09 04:47 | Emergency Department Note ---
Disposition Clinical Impression: Elevated troponin, Hyponatremia Syncope Qualifiers: Syncope type: unspecified Qualified Code(s): R55 - Syncope and collapse Pancreatic cancer Qualifiers: Pancreatic malignancy location: unspecified Qualified Code(s): C25.9 - Malignant neoplasm of pancreas, unspecified Anemia Qualifiers: Anemia type: unspecified type Qualified Code(s): D64.9 - Anemia, unspecified Ascites Qualifiers: Ascites type: other type Qualified Code(s): R18.8 - Other ascites Disposition: Admitted As Inpatient Condition: Fair Referrals: Larissa Mcgowan, [employer] [Primary Care Provider] - Forms: ED Satisfaction Letter Time of Disposition: 06:17 General Adult HPI - General Chief complaint: ED Syncope Stated complaint: fall Time Seen by Provider: 12/09/17 04:34 Source: patient Mode of arrival: EMS Limitations: no limitations Nursing Notes Reviewed: Yes Vital Signs Reviewed: Yes - History of Present Illness HPI Narrative: 62-year-old male with history of COPD, newly diagnosed pancreas and liver cancer presents for evaluation of a syncopal episode. Patient states that he felt fatigued. Patient was noted to pass out while using the commode. Occurred just prior to arrival. Patient's heard the patient fall. Patient states that he did not hit his head but was stuck between the toilet. Patient denies any nausea or vomiting. Does note some epigastric abdominal pain which is new. Reports some shortness of breath. Denies any chest pain or palpitations. Denies any blood in his stool or dark tarry stools. States that he recently underwent chemotherapy a week ago. States in the diagnosed of malignancy approximately a month ago. No history of any ACS or cardiac abnormalities. Patient does have advanced directives and states he does not want any CPR if his heart were to stop. Pain Scale: 0 - Related Data Home Medications Medication Instructions Recorded Confirmed Lansoprazole [Prevacid] 30 mg PO BID 12/24/16 12/06/17 Montelukast [Singulair] 10 mg PO HS 12/24/16 12/06/17 Albuterol Neb [Proventil Neb] 2.5 mg IH Q4HR PRN 02/20/17 12/06/17 Albuterol Sulfate [Albuterol 2 puff IH Q4H PRN 02/20/17 12/06/17 Inhaler] Glucosamn/Condroitn/C/Mn/[place] 2 tab PO DAILY 02/20/17 12/06/17 [[facility] Glucosamine Chondroitin Tb] Finasteride [Proscar] 5 mg PO DAILY 05/29/17 12/06/17 Budesonide/Formoterol 160/4.5 2 puff IH BIDR 10/25/17 12/06/17 [Symbicort 160/4.5] Tiotropium [Spiriva] 18 mcg IH DAILY 10/25/17 12/06/17 Albuterol Sulfate [Proventil] 4 mg PO TID 11/14/17 12/06/17 Oxycodone HCl [Oxaydo] 10 mg PO Q4H PRN 11/14/17 12/06/17 Oxycodone HCl [Oxaydo] 15 mg PO Q4H PRN 11/14/17 12/06/17 Previous Rx's Medication Instructions Recorded Loratadine [Claritin] 10 mg PO DAILY tab 12/25/16 Sennosides/Docusate Sodium [Senna 2 each PO BID #60 tablet 10/30/17 Plus] Lidocaine/Prilocaine [Emla] 1 appl TP DAILY #30 gm 11/05/17 Metoclopramide HCl 5 mg PO QIDAC #150 tablet 11/05/17 Tramadol HCl [Ultram] 50 - 100 mg PO Q6H PRN 14 Days #30 11/21/17 tab Demeclocycline [Declomycin] 300 mg PO Q12HR #120 tablet 11/29/17 LORazepam [Ativan] 1 - 2 tab PO Q6H PRN 14 Days #30 12/06/17 tablet Ondansetron [Zofran ODT] 8 mg SL Q8H PRN #30 tab 12/06/17 Allergies Allergy/AdvReac Type Severity Reaction Status Date / Time azithromycin Allergy Rash Verified 02/20/17 10:17 [From Zithromax Z-Michael] ciprofloxacin [From Cipro] Allergy Rash Verified 11/06/17 08:50 mold Allergy Rash Verified 02/20/17 10:17 Amoxicillin [From Augmentin] AdvReac Gastrointestinal Verified 11/06/17 08:50 Upset clavulanic acid AdvReac Gastrointestinal Verified 11/06/17 08:50 [From Augmentin] Upset dust Allergy Wheezing Uncoded 10/23/16 10:10 All systems ED: reviewed and negative except as stated. Constitutional: Denies: fever Cardiovascular: Denies: chest pain Respiratory: Denies: cough Gastrointestinal: Reports: abdominal pain. Denies: nausea, vomiting Past Medical History - Past Medical History Source: patient Medical history: Reports: asthma, cancer, COPD, diabetes, hyperlipidemia, hypertension Surgical history: Reports: cataract, cholecystectomy, herniorrhaphy Psychiatric history: Reports: no psych history - Social History Smoking Status: Never smoker Smokeless Tobacco Status: No Alcohol use: Reports: none Drug use: Reports: none Physical Exam - General Limitations: no limitations General appearance: alert, in no apparent distress, cachectic - Head Head exam: atraumatic, normocephalic, normal inspection - Eye Eye exam: Present: normal appearance, PERRL, EOMI - ENT ENT exam: normal exam, mucous membranes dry - Neck Neck exam: Present: normal inspection - Chest Chest inspection: Present: normal inspection, symmetric chest wall rise, other ( Left upper chest wall port without any signs of erythema) - Respiratory Respiratory exam: Present: normal lung sounds bilaterally. Absent: respiratory distress - Cardiovascular Cardiovascular exam: Present: normal rhythm, tachycardia. Absent: systolic murmur - Abdominal Exam Abdominal exam: Present: soft, tenderness (Epigastric). Absent: guarding, rebound - Extremities Exam Extremities exam: Present: normal inspection. Absent: pedal edema - Back Exam Back exam: Present: other (Abrasion over the upper thoracic). Absent: tenderness - Neurological Exam Neurological exam: Present: alert, oriented X3, CN II-XII intact - Expanded Neurological Exam Patient oriented to: Present: person, place, time Speech: Present: fluid speech Cranial nerves: EOM function (II, III, IV, ): Normal, facial sensation (V): Normal, facial palsy (VII): Normal, spinal accessory function (XI): Normal, tongue deviation (XII): Normal Motor strength - LUE: 5/5 Motor strength - RUE: 5/5 Motor strength - LLE: 5/5 Motor strength - RLE: 5/5 Coma Scale Eye Opening: Spontaneous Coma Scale Motor Response: Obeys Commands Coma Scale Verbal Response: Oriented Coma Scale Total: 15 - Skin Skin exam: Present: warm, dry, intact, pallor Course Course Narrative: Patient seen and examined upon arrival. Patient does have abnormal vitals and appears in sinus tach at a rate of 1:30. Patient also appears quite pale. Denies any history of blood thinners or GI bleed. Patient will receive extensive evaluation with a CT of the head and abdomen. Chest x-ray. Patient will also get basic labs urinalysis. Disposition pending. - Reevaluation(s) Reevaluation #1: Patient seen and examined. is at bedside. Provide initial history stating the patient does get paracentesis drained due to his malignancy. States his abdomen does appear distended. Patient's abdomen is non-peritoneal. states that he heard him get up and fall in the middle of night. No prolonged downtime. Patient was confused following the fall and was mumbling his words. Patient then passed out momentarily a second time. Patient is back to baseline currently. Awaiting imaging studies. Time: 05:46 Vital Signs Temperature 97.6 F 12/09/17 04:29 Pulse Rate 130 12/09/17 04:29 Respiratory Rate 16 12/09/17 04:29 Blood Pressure 106/80 12/09/17 04:29 O2 Sat by Pulse Oximetry 98 12/09/17 04:29 Temperature 97.6 F 12/09/17 04:29 Pulse Rate 121 12/09/17 06:00 Respiratory Rate 16 12/09/17 06:00 Blood Pressure 93/65 12/09/17 06:00 O2 Sat by Pulse Oximetry 98 12/09/17 06:00 Oxygen Delivery Oxygen Delivery Nasal Cannula Medical Decision Making - [facility] Narrative Medical decision making narrative: Patient presents for concerns of a syncopal episode. Patient did fall off the commode. Patient's workup in the ED shows marketed lab abnormalities which includes chronic anemia. Of note the patient does have an elevated troponin with no ST elevations. Patient's EKG shows unifocal PVCs. Patient's syncope episode possibly related to an arrhythmia which would prompt the patient's admission. Patient denies any chest pain in the ED. Did get CT imaging of the head as well as the abdomen. No acute hemorrhage of the brain noted. Patient CT scan the abdomen does show ascites however the patient does not have any peritonitis. Patient's abdominal discomfort is in the epigastrium likely consistent with his metastatic disease. Patient does have wishes not to be resuscitated and denies any CPR if his heart were to stop. Patient's heart rate is improving with IV fluid hydration. Patient was given aspirin for the elevated troponin given negative head CT for hemorrhage. Patient also has chronic hyponatremia which appears to be improved from prior. At this point the patient has not been able to provide a urine sample and is getting IV fluids. There is low suspicion that the urine is a source. Patient will be admitted and they can follow that on the floor. - Lab Data Lab results reviewed: Yes I reviewed the patient's lab results. Result diagrams: 12/09/17 04:54 12/09/17 04:54 Lab Results 12/09/17 12/09/17 12/09/17 Range/Units 04:54 04:54 04:54 WBC 5.9 (4.3-11.1) K/mcL RBC 4.45 (4.19-5.50) M/mcL Hgb 12.5 L (12.9-16.9) g/dL Hct 36.8 L (37.5-50.1) % MCV 82.7 L (83.0-100.0) fL MCH 28.1 (28.0-33.3) pg MCHC 34.0 (31.6-35.5) g/dL RDW 14.4 (11.5-14.5) % Plt Count 265 (140-400) K/mcL MPV 8.6 L (9.4-12.4) fL Immature Gran % 1.2 (0-4) % Seg Neutrophils % 71.7 % Lymphocytes % 15.5 % Monocytes % 9.5 % Eosinophils % 1.4 % Basophils % 0.7 % Neutrophils # 4.3 (1.6-8.9) K/mcL Lymphocytes # 0.9 (0.6-4.6) K/mcL Monocytes # 0.6 (0.0-1.3) K/mcL Eosinophils # 0.1 (0.0-0.6) K/mcL Basophils # 0.0 (0.0-0.2) K/mcL PT 14.0 H (9.4-12.1) Seconds INR 1.2 Sodium 124 L (136-145) mEq/L Potassium 4.1 (3.5-5.1) mEq/L Chloride 91 L (98-107) mEq/L Carbon Dioxide 22 L (23-29) mEq/L BUN 9 (8-23) mg/dL Creatinine 0.49 L (0.70-1.30) mg/dL Est GFR ( Amer) > 60 (> 60) Est GFR (Non-Af Amer) > 60 (> 60) BUN/Creatinine Ratio 18 (6-26) Glucose 179 H (70-105) mg/dL Calculated Osmolality 261 L (280-300) Lactic Acid (0.5-2.2) mmol/L Calcium 8.2 L (8.6-10.3) mg/dL Phosphorus 4.7 H (2.7-4.5) mg/dL Magnesium 1.7 (1.6-2.6) mg/dL Total Bilirubin 0.3 (0.3-1.0) mg/dL AST 17 (13-39) Units/L ALT 11 (7-52) Units/L Alkaline Phosphatase 127 H (34-104) Units/L Creatine Kinase 53 (30-223) Units/L Troponin I 0.08 H* (< 0.04) ng/mL B-Natriuretic Peptide (Less than 100) pg/mL Serum Total Protein 5.5 L (6.4-8.9) g/dL Albumin 2.6 L (3.5-5.7) g/dL Globulin 2.9 (2.4-3.5) g/dL Albumin/Globulin Ratio 0.9 L (1.1-2.2) Lipase 9 L (11-82) Units/L 12/09/17 12/09/17 Range/Units 04:54 04:54 WBC (4.3-11.1) K/mcL RBC (4.19-5.50) M/mcL Hgb (12.9-16.9) g/dL Hct (37.5-50.1) % MCV (83.0-100.0) fL MCH (28.0-33.3) pg MCHC (31.6-35.5) g/dL RDW (11.5-14.5) % Plt Count (140-400) K/mcL MPV (9.4-12.4) fL Immature Gran % (0-4) % Seg Neutrophils % % Lymphocytes % % Monocytes % % Eosinophils % % Basophils % % Neutrophils # (1.6-8.9) K/mcL Lymphocytes # (0.6-4.6) K/mcL Monocytes # (0.0-1.3) K/mcL Eosinophils # (0.0-0.6) K/mcL Basophils # (0.0-0.2) K/mcL PT (9.4-12.1) Seconds INR Sodium (136-145) mEq/L Potassium (3.5-5.1) mEq/L Chloride (98-107) mEq/L Carbon Dioxide (23-29) mEq/L BUN (8-23) mg/dL Creatinine (0.70-1.30) mg/dL Est GFR ( Amer) (> 60) Est GFR (Non-Af Amer) (> 60) BUN/Creatinine Ratio (6-26) Glucose (70-105) mg/dL Calculated Osmolality (280-300) Lactic Acid 1.6 (0.5-2.2) mmol/L Calcium (8.6-10.3) mg/dL Phosphorus (2.7-4.5) mg/dL Magnesium (1.6-2.6) mg/dL Total Bilirubin (0.3-1.0) mg/dL AST (13-39) Units/L ALT (7-52) Units/L Alkaline Phosphatase (34-104) Units/L Creatine Kinase (30-223) Units/L Troponin I (< 0.04) ng/mL B-Natriuretic Peptide 95 (Less than 100) pg/mL Serum Total Protein (6.4-8.9) g/dL Albumin (3.5-5.7) g/dL Globulin (2.4-3.5) g/dL Albumin/Globulin Ratio (1.1-2.2) Lipase (11-82) Units/L - Radiology Data Radiology results reviewed: Yes I reviewed the patient's radiology results. Chest X-Ray 12/09/17 04:42 IMPRESSION: No acute disease. D/ / Rommel Arias MD / Rommel Arias MD Interpreting Provider: Rommel Arias MD Head CT 12/09/17 04:42 IMPRESSION: No acute intracranial abnormality. D/ / Rommel Arias MD / Rommel Arias MD Interpreting Provider: Rommel Arias MD Abdomen/Pelvis CT 12/09/17 04:43 IMPRESSION: 1. Interval increase in the volume of ascites. 2. Pancreatic low-attenuation lesion again seen with multiple hepatic metastases and omental implants. D/ / Rommel Arias MD / Rommel Arias MD Interpreting Provider: Rommel Arias MD - EKG Data EKG #1 EKG attestation: Yes I reviewed and interpreted this EKG. EKG shows normal: sinus rhythm Rate: normal Rhythm: NSR [place]/QRS: right axis deviation T wave inversions noted in: aVR Ectopy: PVC (4 UNIFOCAL PVC) Interpretation: no acute changes, nonspecific ST-T wave changes S.B.A.R. - S.B.A.R. Situation: Demographics Background: Presenting Complaint Assessment: Vital Signs, Course and respsone to treatment, Patient/Family Expectation Recommendation: Barrier(s) to disposition, Recommendation based on pending studies, treatments, or consults S.B.A.R. Report Given to: Dr. Justa ChengALois Repor Time: 06:33
[2017-12-09 05:08] LABS: Basophils % 0.7 %; Eosinophils # 0.1 K/mcL (0.0-0.6); Eosinophils % 1.4 %; Hematocrit 36.8 % (37.5-50.1); Hemoglobin 12.5 g/dL (12.9-16.9); Immature Granulocytes % 1.2 % (0-4); Lymphocytes # 0.9 K/mcL (0.6-4.6); Lymphocytes % 15.5 %; Mean Corpuscular Hemoglobin 28.1 pg (28.0-33.3); Mean Corpuscular Volume 82.7 fL (83.0-100.0); Mean Platelet Volume 8.6 fL (9.4-12.4); Monocytes # 0.6 K/mcL (0.0-1.3); Monocytes % 9.5 %; Neutrophils # 4.3 K/mcL (1.6-8.9); Platelet Count 265 K/mcL (140-400); Red Blood Count 4.45 M/mcL (4.19-5.50); Red Cell Distribution Width 14.4 % (11.5-14.5); Segmented Neutrophils % 71.7 %
[2017-12-09 05:12] LABS: INR 1.2
[2017-12-09 05:31] LABS: Alanine Aminotransferase 11 Units/L (7-52); Albumin 2.6 g/dL (3.5-5.7); Albumin/Globulin Ratio 0.9 (1.1-2.2); Alkaline Phosphatase 127 Units/L (34-104); Aspartate Amino Transferase 17 Units/L (13-39); BUN/Creatinine Ratio 18 (6-26); Bilirubin,Total 0.3 mg/dL (0.3-1.0); Blood Urea Nitrogen 9 mg/dL (8-23); Calcium 8.2 mg/dL (8.6-10.3); Carbon Dioxide 22 mEq/L (23-29); Chloride 91 mEq/L (98-107); Creatine Kinase 53 Units/L (30-223); Globulin 2.9 g/dL (2.4-3.5); Glucose 179 mg/dL (70-105); Lipase 9 Units/L (11-82); Magnesium 1.7 mg/dL (1.6-2.6); Osmolality,Calculated 261 (280-300); Phosphorous 4.7 mg/dL (2.7-4.5); Potassium 4.1 mEq/L (3.5-5.1); Sodium 124 mEq/L (136-145); Total Protein 5.5 g/dL (6.4-8.9); eGFR For Non-African Americans > 60 (> 60)
[2017-12-09 05:33] LABS: Troponin I 0.08 ng/mL (< 0.04)
[2017-12-09] MEDS ORDERED: Aspirin 325 MG TABLET PO ONE (06:17)
--- NOTE | 2017-12-09 07:08 | Emergency Department Note ---
Disposition Clinical Impression: Elevated troponin, Hyponatremia Syncope Qualifiers: Syncope type: unspecified Qualified Code(s): R55 - Syncope and collapse Pancreatic cancer Qualifiers: Pancreatic malignancy location: unspecified Qualified Code(s): C25.9 - Malignant neoplasm of pancreas, unspecified Anemia Qualifiers: Anemia type: unspecified type Qualified Code(s): D64.9 - Anemia, unspecified Ascites Qualifiers: Ascites type: other type Qualified Code(s): R18.8 - Other ascites Disposition: Admitted As Inpatient Condition: Fair Referrals: Larissa Mcgowan CNP [Primary Care Provider] - Forms: ED Satisfaction Letter General Adult HPI - General Chief complaint: ED Syncope Stated complaint: fall Time Seen by Provider: 12/09/17 04:34 Source: patient Mode of arrival: EMS Limitations: no limitations Nursing Notes Reviewed: Yes Vital Signs Reviewed: Yes - History of Present Illness Pain Scale: 0 - Related Data Home Medications Medication Instructions Recorded Confirmed Lansoprazole [Prevacid] 30 mg PO BID 12/24/16 12/06/17 Montelukast [Singulair] 10 mg PO HS 12/24/16 12/06/17 Albuterol Neb [Proventil Neb] 2.5 mg IH Q4HR PRN 02/20/17 12/06/17 Albuterol Sulfate [Albuterol 2 puff IH Q4H PRN 02/20/17 12/06/17 Inhaler] Glucosamn/Condroitn/C/Mn/[place] 2 tab PO DAILY 02/20/17 12/06/17 [[facility]vs Glucosamine Chondroitin Tb] Finasteride [Proscar] 5 mg PO DAILY 05/29/17 12/06/17 Budesonide/Formoterol 160/4.5 2 puff IH BIDR 10/25/17 12/06/17 [Symbicort 160/4.5] Tiotropium [Spiriva] 18 mcg IH DAILY 10/25/17 12/06/17 Albuterol Sulfate [Proventil] 4 mg PO TID 11/14/17 12/06/17 Oxycodone HCl [Oxaydo] 10 mg PO Q4H PRN 11/14/17 12/06/17 Oxycodone HCl [Oxaydo] 15 mg PO Q4H PRN 11/14/17 12/06/17 Previous Rx's Medication Instructions Recorded Loratadine [Claritin] 10 mg PO DAILY tab 12/25/16 Sennosides/Docusate Sodium [Senna 2 each PO BID #60 tablet 10/30/17 Plus] Lidocaine/Prilocaine [Emla] 1 appl TP DAILY #30 gm 11/05/17 Metoclopramide HCl 5 mg PO QIDAC #150 tablet 11/05/17 Tramadol HCl [Ultram] 50 - 100 mg PO Q6H PRN 14 Days #30 11/21/17 tab Demeclocycline [Declomycin] 300 mg PO Q12HR #120 tablet 11/29/17 LORazepam [Ativan] 1 - 2 tab PO Q6H PRN 14 Days #30 12/06/17 tablet Ondansetron [Zofran ODT] 8 mg SL Q8H PRN #30 tab 12/06/17 Allergies Allergy/AdvReac Type Severity Reaction Status Date / Time azithromycin Allergy Rash Verified 02/20/17 10:17 [From Zithromax Z-Michael] ciprofloxacin [From Cipro] Allergy Rash Verified 11/06/17 08:50 mold Allergy Rash Verified 02/20/17 10:17 Amoxicillin [From Augmentin] AdvReac Gastrointestinal Verified 11/06/17 08:50 Upset clavulanic acid AdvReac Gastrointestinal Verified 11/06/17 08:50 [From Augmentin] Upset dust Allergy Wheezing Uncoded 10/23/16 10:10 Constitutional: Denies: fever Cardiovascular: Denies: chest pain Respiratory: Denies: cough Gastrointestinal: Reports: abdominal pain. Denies: nausea, vomiting Past Medical History - Past Medical History Medical history: Reports: asthma, cancer, COPD, diabetes, hyperlipidemia, hypertension Surgical history: Reports: cataract, cholecystectomy, herniorrhaphy Psychiatric history: Reports: no psych history - Social History Smoking Status: Never smoker Smokeless Tobacco Status: No Alcohol use: Reports: none Drug use: Reports: none Physical Exam - General Limitations: no limitations General appearance: alert, in no apparent distress, cachectic Course Vital Signs Temperature 97.6 F 12/09/17 04:29 Pulse Rate 130 12/09/17 04:29 Respiratory Rate 16 12/09/17 04:29 Blood Pressure 106/80 12/09/17 04:29 O2 Sat by Pulse Oximetry 98 12/09/17 04:29 Temperature 97.6 F 12/09/17 04:29 Pulse Rate 122 12/09/17 06:33 Respiratory Rate 21 12/09/17 06:33 Blood Pressure 91/66 12/09/17 06:33 O2 Sat by Pulse Oximetry 95 12/09/17 06:33 Oxygen Delivery Oxygen Delivery Nasal Cannula Medical Decision Making - Medical Records Medical records reviewed: Yes I reviewed the patient's medical records. - Lab Data Lab results reviewed: Yes I reviewed the patient's lab results. Result diagrams: 12/09/17 04:54 12/09/17 04:54 Lab Results 12/09/17 12/09/17 12/09/17 Range/Units 04:54 04:54 04:54 WBC 5.9 (4.3-11.1) K/mcL RBC 4.45 (4.19-5.50) M/mcL Hgb 12.5 L (12.9-16.9) g/dL Hct 36.8 L (37.5-50.1) % MCV 82.7 L (83.0-100.0) fL MCH 28.1 (28.0-33.3) pg MCHC 34.0 (31.6-35.5) g/dL RDW 14.4 (11.5-14.5) % Plt Count 265 (140-400) K/mcL MPV 8.6 L (9.4-12.4) fL Immature Gran % 1.2 (0-4) % Seg Neutrophils % 71.7 % Lymphocytes % 15.5 % Monocytes % 9.5 % Eosinophils % 1.4 % Basophils % 0.7 % Neutrophils # 4.3 (1.6-8.9) K/mcL Lymphocytes # 0.9 (0.6-4.6) K/mcL Monocytes # 0.6 (0.0-1.3) K/mcL Eosinophils # 0.1 (0.0-0.6) K/mcL Basophils # 0.0 (0.0-0.2) K/mcL PT 14.0 H (9.4-12.1) Seconds INR 1.2 Sodium 124 L (136-145) mEq/L Potassium 4.1 (3.5-5.1) mEq/L Chloride 91 L (98-107) mEq/L Carbon Dioxide 22 L (23-29) mEq/L BUN 9 (8-23) mg/dL Creatinine 0.49 L (0.70-1.30) mg/dL Est GFR ( Amer) > 60 (> 60) Est GFR (Non-Af Amer) > 60 (> 60) BUN/Creatinine Ratio 18 (6-26) Glucose 179 H (70-105) mg/dL Calculated Osmolality 261 L (280-300) Lactic Acid (0.5-2.2) mmol/L Calcium 8.2 L (8.6-10.3) mg/dL Phosphorus 4.7 H (2.7-4.5) mg/dL Magnesium 1.7 (1.6-2.6) mg/dL Total Bilirubin 0.3 (0.3-1.0) mg/dL AST 17 (13-39) Units/L ALT 11 (7-52) Units/L Alkaline Phosphatase 127 H (34-104) Units/L Creatine Kinase 53 (30-223) Units/L Troponin I 0.08 H* (< 0.04) ng/mL B-Natriuretic Peptide (Less than 100) pg/mL Serum Total Protein 5.5 L (6.4-8.9) g/dL Albumin 2.6 L (3.5-5.7) g/dL Globulin 2.9 (2.4-3.5) g/dL Albumin/Globulin Ratio 0.9 L (1.1-2.2) Lipase 9 L (11-82) Units/L 12/09/17 12/09/17 Range/Units 04:54 04:54 WBC (4.3-11.1) K/mcL RBC (4.19-5.50) M/mcL Hgb (12.9-16.9) g/dL Hct (37.5-50.1) % MCV (83.0-100.0) fL MCH (28.0-33.3) pg MCHC (31.6-35.5) g/dL RDW (11.5-14.5) % Plt Count (140-400) K/mcL MPV (9.4-12.4) fL Immature Gran % (0-4) % Seg Neutrophils % % Lymphocytes % % Monocytes % % Eosinophils % % Basophils % % Neutrophils # (1.6-8.9) K/mcL Lymphocytes # (0.6-4.6) K/mcL Monocytes # (0.0-1.3) K/mcL Eosinophils # (0.0-0.6) K/mcL Basophils # (0.0-0.2) K/mcL PT (9.4-12.1) Seconds INR Sodium (136-145) mEq/L Potassium (3.5-5.1) mEq/L Chloride (98-107) mEq/L Carbon Dioxide (23-29) mEq/L BUN (8-23) mg/dL Creatinine (0.70-1.30) mg/dL Est GFR ( Amer) (> 60) Est GFR (Non-Af Amer) (> 60) BUN/Creatinine Ratio (6-26) Glucose (70-105) mg/dL Calculated Osmolality (280-300) Lactic Acid 1.6 (0.5-2.2) mmol/L Calcium (8.6-10.3) mg/dL Phosphorus (2.7-4.5) mg/dL Magnesium (1.6-2.6) mg/dL Total Bilirubin (0.3-1.0) mg/dL AST (13-39) Units/L ALT (7-52) Units/L Alkaline Phosphatase (34-104) Units/L Creatine Kinase (30-223) Units/L Troponin I (< 0.04) ng/mL B-Natriuretic Peptide 95 (Less than 100) pg/mL Serum Total Protein (6.4-8.9) g/dL Albumin (3.5-5.7) g/dL Globulin (2.4-3.5) g/dL Albumin/Globulin Ratio (1.1-2.2) Lipase (11-82) Units/L - Radiology Data Radiology results reviewed: Yes I reviewed the patient's radiology results. Chest X-Ray 12/09/17 04:42 IMPRESSION: No acute disease. D/ / Rommel Arias MD / Rommel Arias MD Interpreting Provider: Rommel Arias MD Head CT 12/09/17 04:42 IMPRESSION: No acute intracranial abnormality. D/ / Rommel Arias MD / Rommel Arias MD Interpreting Provider: Rommel Arias MD Abdomen/Pelvis CT 12/09/17 04:43 IMPRESSION: 1. Interval increase in the volume of ascites. 2. Pancreatic low-attenuation lesion again seen with multiple hepatic metastases and omental implants. D/ / Rommel Arias MD / Rommel Arias MD Interpreting Provider: Rommel Arias MD Attestation Statement - Attestation Attestation: I, Junaid Angulo MD, personally evaluated this patient and discussed their management with the resident physician. I reviewed the resident's note and agree with the documented findings, medical decision making, and plan of care. 62-year-old male presents to the emergency department by ambulance after he had a syncopal episode while sitting on the toilet at home. He fell off the toilet. He denies any injury from falling off the toilet other than some scrapes on his back but denies any pain in his back. He denies hitting his head. He denies having any chest pain or palpitations prior to the fall. He did not get dizzy or lightheaded. On examination patient is a well-developed well-nourished male in no acute distress. He is alert and oriented 3. There is no cyanosis or diaphoresis. Head is atraumatic. Neck supple and nontender. Chest is nontender to palpation. Breath sounds are clear and equal bilaterally. Heart regular with a moderate tachycardia. Abdomen soft with present bowel sounds. Chest x-ray negative. Head CT negative. Abdominal CT shows some increased ascites and pancreatic lesion with liver metastasis. Labs reviewed. The hospitalist, Dr. Marr, was consulted and accepted admission of the patient.
[2017-12-09] MEDS ORDERED: 0.9 % Sodium Chloride 1,000 ML ONE (07:39)
[2017-12-09] MEDS ORDERED: *HR* OxyCODONE Immed Rel 15 MG TABLET PO PRN (08:47)
--- NOTE | 2017-12-09 08:55 | Internal Med History&Physical ---
Date of Encounter: 12/09/17 Time of Encounter: 08:55 Internal Medicine - H&P: HPI Chief complaint: fall off commode at home after having a syncopal episode Admitted From: Emergency Dept Plans for Post Hospital Care: Home History of present illness: Mr. Mary is a 62 year old male whom was admitted from ED for syncope, and falling off commode at home. His states that he was on commode to have BM early this morning, when she found him incoherant and confused lying on the floor, after falling off commode. Reports this occured twice, once after falling and the second time while lying on floor. He was transported per EMS to ED. Head CT and CXR were negative. Abdominal CT was found to have ascetics, and METs from pancreatic cancer with omentum device. Troponin were elevated at 0.08, with low sodium of 124, and elevated glucose of 176. It was decided to admit patient for further evaluation of syncope and elevated Troponin. At time of admission patient had returned to basesline w/o s /s of LOC changes. History is positive for Pancreatic cancer with METS, Type 2 Diabetes, Abdominal pain with Ascites, Anemia, and Syncope. Past Med Surg Social Fam HX - Past Medical History Source: patient Medical history: asthma, cancer, COPD, diabetes, hyperlipidemia, hypertension, liver disease, malignancy, syncope Additional medical history: diverticulosis. pancreatic cancer. liver cancer Psychiatric history: anxiety - Past Surgical History Surgical History: cataract, cholecystectomy, herniorrhaphy Additional surgical history: colonoscopy - Social History Smoking Status: Never smoker Smokeless Tobacco Status: No Alcohol use: none Drug use: none Current living situation: Home - Independent Activity Level: Independent ambulation Recent Out of Country Travel Within the Last 8 Weeks: No Exposure or Possible Exposure to Illness During Travel: No - Family History Mother Adopted: No Living Status: Hx Family Cardiac Disorders: Yes (htn, angina) Father Adopted: No Living Status: Hx Family Cardiac Disorders: Yes (heart attack, open heart surgery) Hx Family Endocrine Disorder: Yes (DM) Internal Medicine - H&P: Meds Lansoprazole [Prevacid] 30 mg PO BID 12/24/16 [History] Montelukast [Singulair] 10 mg PO HS 12/24/16 [History] Loratadine [Claritin] 10 mg PO DAILY tab 12/25/16 [Rx] Albuterol Neb [Proventil Neb] 2.5 mg IH Q4HR PRN 02/20/17 [History] Albuterol Sulfate [Albuterol Inhaler] 2 puff IH Q4H PRN 02/20/17 [History] Finasteride [Proscar] 5 mg PO DAILY 05/29/17 [History] Budesonide/Formoterol 160/4.5 [Symbicort 160/4.5] 2 puff IH BIDR 10/25/17 [ History] Tiotropium [Spiriva] 18 mcg IH DAILY 10/25/17 [History] Sennosides/Docusate Sodium [Senna Plus] 2 each PO BID #60 tablet 10/30/17 [Rx] Lidocaine/Prilocaine [Emla] 1 appl TP DAILY #30 gm 11/05/17 [Rx] Metoclopramide HCl 5 mg PO QIDAC #150 tablet 11/05/17 [Rx] Albuterol Sulfate [Proventil] 4 mg PO TID 11/14/17 [History] Oxycodone HCl [Oxaydo] 10 mg PO Q4H PRN 11/14/17 [History] Tramadol HCl [Ultram] 50 - 100 mg PO Q6H PRN 14 Days #30 tab 11/21/17 [Rx] Demeclocycline [Declomycin] 300 mg PO Q12HR #120 tablet 11/29/17 [Rx] LORazepam [Ativan] 1 - 2 tab PO Q6H PRN 14 Days #30 tablet 12/06/17 [Rx] Ondansetron [Zofran ODT] 8 mg SL Q8H PRN #30 tab 12/06/17 [Rx] 3 Allergy/AdvReac Type Severity Reaction Status Date / Time azithromycin Allergy Rash Verified 12/09/17 09:30 [From Zithromax Z-Michael] ciprofloxacin [From Cipro] Allergy Rash Verified 12/09/17 09:30 mold Allergy Rash Verified 12/09/17 09:30 Amoxicillin [From Augmentin] AdvReac Gastrointestinal Verified 12/09/17 09:30 Upset clavulanic acid AdvReac Gastrointestinal Verified 12/09/17 09:30 [From Augmentin] Upset dust Allergy Wheezing Uncoded 12/09/17 09:30 All Systems PM: A 10-system review of systems was performed and is negative for pertinent findings except as documented above in the HPI. - Constitutional Constitutional: anorexia, falls, weakness, weight loss - EENT Eyes: as per HPI Ears: as per HPI Nose, mouth and throat: as per HPI - Cardiovascular Cardiovascular ROS IM: dyspnea on exertion, syncope - Gastrointestinal Gastrointestinal: abdominal pain, nausea ( Ascites ) - Integumentary Additional comments: abrasion mid upper thorax - Neurological Neurological ROS: abnormal speech, confusion, dizziness, weakness - Psychiatric Psychiatric: anxiety - Allergic/Immunologic Allergic/Immunologic: as per HPI - Constitutional Vitals: Temp Pulse Resp BP Pulse Ox 97.6 F 122 20 95/71 95 12/09/17 04:29 12/09/17 06:33 12/09/17 08:03 12/09/17 08:03 12/09/17 06:33 General appearance: Present: cooperative, A&O X 3, pleasant, no acute distress Exam: On examination today, patient is resting comfortably in bed with present at bedside. He has CC of mild abdominal discomfort d/t ascties, and nausea. Rates his pain as an episodic, sharp #3 on pain scale 0-10. He is requesting to have a breathing treatment for s/s of chest congestion, and tightness. He Denies cardiac chest pain, has port noted in left upper chest wall, Breath sounds are mildley diminished with scattered wheezes present Heart is RRR w/o gallop or run - Eye Eye exam: Present: EOMI, normal appearance - ENT ENT exam: Present: mucous membranes moist - Respiratory Respiratory exam: Present: wheezes - Cardiovascular Cardiovascular exam: Present: RRR, +S1, +S2. Absent: diastolic murmur, gallop, rubs, systolic murmur - GI/Abdominal GI/Abdominal exam: Present: distended, normal bowel sounds, soft Additional comments: positive for fluid and acuities with mild tenderness with palpation, noted left lower quad omentum device under skin. - Expanded GI/Abdominal Exam GI/Abdominal exam expanded: Present: ascites - Extremities Exam Extremities exam: Present: warm, radial pulses palpable and symmetrical. Absent : calf tenderness, cyanotic, pedal edema - Back Exam Back exam: Present: full ROM - Neurological Exam Neurological exam: Present: CN II-XII intact, oriented X3, no focal deficits. Absent: pronater drift, facial droop, speech deficit - Psychiatric Psychiatric exam: Present: anxious - Skin Skin exam: Present: abrasion (mid upper thorax ) Internal Med - H&P Results - Labs CBC & Chem 7: 12/09/17 04:54 12/09/17 04:54 - Time Spent With Patient Total time spent is greater than 50% in coordination of care (as documented) at patient's floor/unit and/or counseling patient:
[2017-12-09] MEDS ORDERED: 0.9 % Sodium Chloride 1,000 ML IVC SCH (09:00)
[2017-12-09] MEDS: *HR* LORazepam 0.5 MG TABLET PO PRN ×2 (09:35→19:47)
[2017-12-09] MEDS: Ondansetron ODT 4 MG TAB.RAPDIS SL PRN ×2 (09:35→19:47)
[2017-12-09] MEDS: traMADol 50 MG TABLET PO PRN ×2 (09:36→19:47)
[2017-12-09] MEDS ORDERED: Gadolinium Contrast Agent (WT Based) IV PRN (10:34)
[2017-12-09] MEDS: Albuterol 2.5 MG/3 ML NEBULIZER IH PRN ×2 (10:47→20:43)
[2017-12-09] MEDS: Tiotropium 18 MCG inhalation IH SCH (10:48)
[2017-12-09] MEDS: Budesonide/Formoterol 160/4.5 1 PUFF INH IH SCH ×2 (10:48→20:41)
[2017-12-09 12:41] LABS: Hematocrit 35.5 % (37.5-50.1); Hemoglobin 12.1 g/dL (12.9-16.9)
[2017-12-09] MEDS: Finasteride 5 MG TABLET PO SCH (13:05)
--- NOTE | 2017-12-09 16:07 | Internal Med Progress Note ---
Hospitalist Progress Note - Encounter Date of Encounter: 12/09/17 Time of Encounter: 16:02 - Subjective Interval History: repeat of VS remains hypotensive, and tachy. Albumin IVP 5% continues to run with approximately 3 more hours to infuse. MRI brain , completed, with No intracranial metastatic dx noted , mild chronic small vessel ischemic changes. Unable to complete 2D echol d/t elevated pulse rate of 112, will attempt to obtain again tomorrow. Nurse, states has only voided 100 ml since admission. May need to insert Fried cath at nurses digression if unable to void. - Exam Vitals: Temp Pulse Resp BP Pulse Ox 97.8 F 121 18 88/60 90 12/09/17 11:20 12/09/17 11:20 12/09/17 11:20 12/09/17 12:16 12/09/17 11:20 Exam: On examination today, patient is resting comfortably in bed with present at bedside. He has CC of mild abdominal discomfort d/t ascties, and nausea. Rates his pain as an episodic, sharp #3 on pain scale 0-10. He is requesting to have a breathing treatment for s/s of chest congestion, and tightness. He Denies cardiac chest pain, has port noted in left upper chest wall, Breath sounds are mildley diminished with scattered wheezes present Heart is RRR w/o gallop or run - Assessment and Plan (1) Hypotension Current Visit: Yes Status: Acute Comments: remains hypotensive , Albumen IVP continues to run. Non-symptomatic . - Time Spent with Patient Total time spent is greater than 50% in coordination of care (as documented) at patient's floor/unit and/or counseling patient: less than 15 minutes Plan of Care Discussed with: family Internal Medicine: Result - Labs CBC & Chem 7: 12/09/17 12:38 12/09/17 04:54 Labs: Short CBC 12/09/17 Range/Units 12:38 Hgb 12.1 L (12.9-16.9) g/dL Hct 35.5 L (37.5-50.1) % - ABG Interpretation ABG results: PT/INR, D-dimer PT 14.0 Seconds (9.4-12.1) H 12/09/17 04:54 - Impressions Impressions Brain MRI 12/09/17 10:34 IMPRESSION: 1. No intracranial metastatic disease identified. 2. Mild chronic small vessel ischemic changes. D/ / Phil Abebe MD / Phil Abebe MD Interpreting Provider: Phil Abebe MD Consult Discharge Plan - Plan Referrals: Larissa Mcgowan, DIRECTOR HYDROGEN STORAGE ENGINEERING [Primary Care Provider] - (1) Hypotension Qualifiers: Hypotension type: idiopathic hypotension Qualified Code(s): I95.0 - Idiopathic hypotension
[2017-12-09 16:29] LABS: Bacteria,Urine None Seen per hpf (None-Few); Hyaline Casts,Urine None Seen per lpf (None-Few); RBC,Urine 15-30 per hpf (0-3); Squamous Epithelial Cell,Urine Many per lpf (None-Few); WBC,Urine 0-3 per hpf (0-3)
[2017-12-09 16:30] LABS: Bilirubin,Urine Negative (Negative); Blood,Urine Negative (Negative); Clarity,Urine Clear (Clear); Color,Urine Yellow (Yellow); Glucose,Urine (UA) Normal (Normal); Ketones,Urine Negative (Negative); Leukocyte Esterase,Urine Negative (Negative); Nitrite,Urine Negative (Negative); Protein,Urine 30 mg/dL (Neg-Trace); Urobilinogen,Urine Normal (Normal)
[2017-12-10] MEDS: Ondansetron ODT 4 MG TAB.RAPDIS SL PRN (05:16)
[2017-12-10 05:46] LABS: Hematocrit 32.7 % (37.5-50.1); Hemoglobin 10.9 g/dL (12.9-16.9); Mean Corpuscular HGB Conc 33.3 g/dL (31.6-35.5); Mean Corpuscular Hemoglobin 28.2 pg (28.0-33.3); Mean Corpuscular Volume 84.5 fL (83.0-100.0); Mean Platelet Volume 8.5 fL (9.4-12.4); Platelet Count 234 K/mcL (140-400); Red Blood Count 3.87 M/mcL (4.19-5.50); Red Cell Distribution Width 14.8 % (11.5-14.5)
[2017-12-10 06:06] LABS: Alanine Aminotransferase 10 Units/L (7-52); Albumin 2.7 g/dL (3.5-5.7); Alkaline Phosphatase 115 Units/L (34-104); Amylase 14 Units/L (29-103); Aspartate Amino Transferase 14 Units/L (13-39); BUN/Creatinine Ratio 28 (6-26); Bilirubin,Total 0.3 mg/dL (0.3-1.0); Blood Urea Nitrogen 14 mg/dL (8-23); Calcium 8.3 mg/dL (8.6-10.3); Carbon Dioxide 23 mEq/L (23-29); Chloride 94 mEq/L (98-107); Globulin 2.6 g/dL (2.4-3.5); Glucose 159 mg/dL (70-105); Lipase 10 Units/L (11-82); Osmolality,Calculated 266 (280-300); Potassium 4.5 mEq/L (3.5-5.1); Sodium 126 mEq/L (136-145); Total Protein 5.3 g/dL (6.4-8.9); eGFR For Non-African Americans > 60 (> 60)
[2017-12-10] MEDS: Finasteride 5 MG TABLET PO SCH (09:47)
[2017-12-10] MEDS: traMADol 50 MG TABLET PO PRN ×2 (09:48→17:20)
[2017-12-10] MEDS: Budesonide/Formoterol 160/4.5 1 PUFF INH IH SCH ×2 (10:45→20:10)
[2017-12-10] MEDS: Tiotropium 18 MCG inhalation IH SCH ×2 (10:45)
--- NOTE | 2017-12-10 10:56 | Cardiology Consult Note ---
<Sidra Espana - Last Filed: 12/10/17 10:51> Date of Encounter: 12/10/17 Time of Encounter: 09:00 Assessment and Plan (1) Pancreas cancer Current Visit: Yes Status: Chronic Per cardiology: -HAs known metastatic pancreatic cancer. -On chemotherapy. -OF note, code status DNR-CC. -Managament per primary service. Qualifiers: Pancreatic malignancy location: unspecified Qualified Code(s): C25.9 - Malignant neoplasm of pancreas, unspecified (2) Syncope Current Visit: Yes Status: Acute Per cardiology: -Syncopal event while using restroom, suspect vasovagal syncope. -BP hypotensive, 80s systolic. Na noted to be low. -No significant events on telemetry noted. -echo/carotid pending. -Suspect event vasovagal. -Recommend hydration. Qualifiers: Syncope type: vasovagal syncope Qualified Code(s): R55 - Syncope and collapse (3) Elevated troponin Current Visit: Yes Status: Acute Per cardiology: -Troponins 0.08, 0.22, 0.18 in the setting of metastatic CA, electrolyte abnormalities. -Reports some atypical chest discomfort this am, has chest discomfort with cough , deep breathing. -ECG with new T wave inversions in lead V1. -Echo pending. -NOt on BB due to hypotension. Not on asa due to anemia. -Of note, DNR-CC -With metastatic CA, would favor conservative medical management. -Patient and family agreeable for echocardiogram. -Cardiac rehab consult not appropriate. Discussion w patient/family: The assessment and plan as outlined above was discussed with the patient and/or family members who expressed understanding and agreement. All questions were answered. Thank you for involving us in the care of your patient. Please call with any questions. Discussed and reviewed with . History of Present Illness Consult date: 12/09/17 Requesting physician: Concetta Murillo Consult reason: syncope, elevated troponin Chief complaint: syncope History of present illness: Mr. Mary is a 62 year old male with a relevant past medical history of pancreatic CA with mets, COPD, GERD, HLD, HTN, DM who presented to [facility] with complaints of syncopal event at home. Patient states he was sitting on the toilet, trying to have a bowel movement when he passed out. Patient denies dizziness, lightheadedness. Denies loss of bowel or bladder. Patient states next thing he remembers, he was laying on the floor. Patient denied chest pain at time of event. Patient reports some chest discomfort this morning with cough and deep inspiration. Patient also reports shortness of breath and icnreased fatigue. Patient was recently started on chemotherapy. Of note, code status DNR- CC. Past Med Surg Social Fam HX - Past Medical History Attestation: Yes The following information was validated with the patient. Source: patient, old records reviewed, obtained from family Medical history: asthma, cancer, COPD, diabetes, hyperlipidemia, hypertension, liver disease, malignancy, syncope Additional medical history: diverticulosis. pancreatic cancer. liver cancer Psychiatric history: anxiety - Past Surgical History Surgical History: cataract, cholecystectomy, herniorrhaphy Additional surgical history: colonoscopy - Social History Smoking Status: Never smoker Smokeless Tobacco Status: No Alcohol use: none Drug use: none - Family History Mother Adopted: No Living Status: Hx Family Cardiac Disorders: Yes (htn, angina) Father Adopted: No Living Status: Hx Family Cardiac Disorders: Yes (heart attack, open heart surgery) Hx Family Endocrine Disorder: Yes (DM) Medications and Allergies Lansoprazole [Prevacid] 30 mg PO BID 12/24/16 [History] Montelukast [Singulair] 10 mg PO HS 12/24/16 [History] Loratadine [Claritin] 10 mg PO DAILY tab 12/25/16 [Rx] Albuterol Neb [Proventil Neb] 2.5 mg IH Q4HR PRN 02/20/17 [History] Albuterol Sulfate [Albuterol Inhaler] 2 puff IH Q4H PRN 02/20/17 [History] Finasteride [Proscar] 5 mg PO DAILY 05/29/17 [History] Budesonide/Formoterol 160/4.5 [Symbicort 160/4.5] 2 puff IH BIDR 10/25/17 [ History] Tiotropium [Spiriva] 18 mcg IH DAILY 10/25/17 [History] Sennosides/Docusate Sodium [Senna Plus] 2 each PO BID #60 tablet 10/30/17 [Rx] Lidocaine/Prilocaine [Emla] 1 appl TP DAILY #30 gm 11/05/17 [Rx] Metoclopramide HCl 5 mg PO QIDAC #150 tablet 11/05/17 [Rx] Albuterol Sulfate [Proventil] 4 mg PO TID 11/14/17 [History] Oxycodone HCl [Oxaydo] 10 mg PO Q4H PRN 11/14/17 [History] Tramadol HCl [Ultram] 50 - 100 mg PO Q6H PRN 14 Days #30 tab 11/21/17 [Rx] Demeclocycline [Declomycin] 300 mg PO Q12HR #120 tablet 11/29/17 [Rx] LORazepam [Ativan] 1 - 2 tab PO Q6H PRN 14 Days #30 tablet 12/06/17 [Rx] Ondansetron [Zofran ODT] 8 mg SL Q8H PRN #30 tab 12/06/17 [Rx] 3 Allergy/AdvReac Type Severity Reaction Status Date / Time azithromycin Allergy Rash Verified 12/09/17 09:30 [From Zithromax Z-Michael] ciprofloxacin [From Cipro] Allergy Rash Verified 12/09/17 09:30 mold Allergy Rash Verified 12/09/17 09:30 Amoxicillin [From Augmentin] AdvReac Gastrointestinal Verified 12/09/17 09:30 Upset clavulanic acid AdvReac Gastrointestinal Verified 12/09/17 09:30 [From Augmentin] Upset dust Allergy Wheezing Uncoded 12/09/17 09:30 All Systems Review: The remainder of the systems were reviewed and are negative - Constitutional Constitutional: fatigue - Cardiovascular Cardiovascular: as per HPI, chest pain at rest, dyspnea on exertion - Neurological Neurological: syncope Physical Examination Vital Signs, Last 4 Hours Temp Pulse Resp BP Pulse Ox 12/10/17 09:55 102 14 96/66 93 12/10/17 07:46 97.5 F L 93 16 93 General: Conversant, No Apparent Distress, Other (Ill appearing. ) HEENT: Atraumatic, Normocephaly, Mucus Membranes Moist Neck: No JVD, Normal carotid pulses Cardiac: Reg Rate and Rhythm, Normal S1 and S2, No Murmur Lungs: Normal Breath Sounds, No Wheeze, Rales, Rhonchi Neuro: Alert and responsive, No focal deficits noted Abdomen: Non-Tender, Other (Firm. ) Skin: No rashes noted on visualized skin Musculoskeletal: No Chest Wall Tenderness Extremities: No Clubbing, No Cyanosis, No Edema, Normal Pulses Results 12/10/17 05:21 12/10/17 05:21 Lab Results Impressions Brain MRI 12/09/17 10:34 IMPRESSION: 1. No intracranial metastatic disease identified. 2. Mild chronic small vessel ischemic changes. D/ / hPil Abebe MD / Phil Abebe MD Interpreting Provider: Phil Abebe MD Active Medications Albuterol Sulfate (Proventil Neb) 2.5 mg IH Q2H PRN; Protocol PRN Reason: Shortness Of Breath/Wheezing Stop: 06/10/18 09:13 Budesonide/Formoterol Fumarate (Symbicort) 2 puff IH BIDR [facility] PRN Reason: Protocol Stop: 06/10/18 10:01 Last Admin: 12/10/17 10:45 Dose: Not Given Demeclocycline HCl (Declomycin) 300 mg PO Q12HR [facility] Stop: 06/10/18 18:01 Last Admin: 12/10/17 05:32 Dose: 300 mg Enoxaparin Sodium (Lovenox) 40 mg SQ 0600 NADINE PRN Reason: Protocol Stop: 06/12/18 06:01 Finasteride (Proscar) 5 mg PO DAILY [facility] PRN Reason: Protocol Stop: 06/10/18 09:01 Last Admin: 12/10/17 09:47 Dose: 5 mg Gadobutrol (Gadolinium Contrast Agent (Wt Based)) 1 each IV ONCE PRN; Protocol PRN Reason: SEE COMMENTS Stop: 12/11/17 10:35 Lansoprazole (Prevacid) 30 mg PO BID NADINE PRN Reason: Protocol Stop: 06/10/18 09:01 Last Admin: 12/10/17 09:47 Dose: 30 mg Lorazepam (Ativan) 0.5 mg PO Q6H PRN PRN Reason: Anxiety Stop: 06/10/18 08:48 Last Admin: 12/09/17 19:47 Dose: 0.5 mg Metoclopramide HCl (Reglan) 5 mg PO QIDAC NADINE Stop: 06/10/18 11:31 Last Admin: 12/10/17 09:47 Dose: 5 mg Ondansetron HCl (Zofran Odt) 8 mg SL Q8H PRN PRN Reason: Nausea Last Admin: 12/10/17 05:16 Dose: 8 mg Oxycodone HCl (Roxicodone) 15 mg PO Q4H PRN PRN Reason: SEVERE PAIN Last Admin: 12/10/17 05:32 Dose: 15 mg Tiotropium [place] (Spiriva) 18 mcg IH DAILYR NADINE Stop: 06/11/18 10:01 Last Admin: 12/10/17 10:45 Dose: Not Given Tramadol HCl (Ultram) 100 mg PO Q6H PRN PRN Reason: MODERATE PAIN Stop: 06/10/18 09:13 Last Admin: 12/10/17 09:48 Dose: 100 mg Laboratory Tests 12/09/17 12/09/17 12/10/17 04:54 23:45 05:21 Hgb 10.9 L Creatinine Troponin I 0.08 H* 0.22 H* 12/10/17 12/10/17 05:21 05:21 Hgb Creatinine 0.50 L Troponin I 0.18 H* - Imaging and Cardiology Chest Xray: report reviewed Echo: pending - EKG Interpretation EKG results cardiology: personally reviewed (ECG with ST, HR 109. New T wave inversions noted in lead V1.), other (Telemetry reviewed with average HR previous 12 hours noted to be 108, ST. PVCs noted.) Consult Discharge Plan - Plan Referrals: Larissa Mcgowan, LIFESTYLE DIRECTOR [Primary Care Provider] - <Weston Elizalde - Last Filed: 12/11/17 19:55> Date of Encounter: 12/11/17 Time of Encounter: 13:00 - Attending Attestation I have personally performed a face to face evaluation on this patient. I have reviewed and agree with the care plan. History and Exam by me shows: CC: Syncope HPI: Pt reports was attemping to have a bowel movement, became dizzy, passed out , awoke on floor. He denies chest pain, pressure or shortness of breath, did not lose bowel or bladder control with this event. He is undergoing chemotherapy for pancreatic cancer. He reports some mild mid sternal chest pain this morning , 3/10., lasted several minutes, resolved with change in position, has not reoccurred. ROS: reviewed PMH: reviewed PE; PT seen and examined, agree with findings as documented IMP/Plan: 1. Syncope: most consistent with vasovagal etiology, recommend increased hydration, careful positional changes, sequential orthostatic vitals, if abnormal may benefit from compression stockings. Symptoms also concerning for PE, recommend Chest CT to evaluate given substrate. 2. Elevated troponins, most consistent with demand ischemia, has non specific T wave changes on EKG, not a candiate for invasive strategy due to comorbidities, will order echo to evaluate for pericardial effusion (metastatic) and possible new wall motion abnormalites. 3. Pancreatic cancer; undergoing chemotherapy, prognosis is guarded. Assessment and Plan Discussion w patient/family: The assessment and plan as outlined above was discussed with the patient and/or family members who expressed understanding and agreement. All questions were answered. Thank you for involving us in the care of your patient. Please call with any questions. History of Present Illness History of present illness: Mr. Mary is a 62 year old male All Systems Review: The remainder of the systems were reviewed and are negative Physical Examination Vital Signs, Last 4 Hours Temp Pulse Resp BP Pulse Ox 12/11/17 19:11 99.8 F H 115 16 104/74 93 12/11/17 15:50 98.9 F 110 17 111/80 93 Results 12/10/17 05:21 12/10/17 05:21
--- NOTE | 2017-12-10 13:37 | Internal Med Progress Note ---
Hospitalist Progress Note - Encounter Date of Encounter: 12/10/17 Time of Encounter: 09:25 - Subjective Interval History: Reports feeling tired and weak; appears pale; history obtained from his at bedside; Patient is chronically sick due to underlying liver cancer, poor appetite. Denies nausea, vomiting, diarrhea. Does have ascites and abdominal pain. He received indwelling peritoneal catheter, which he does not like and refuses to have it replaced due to malfunction and infection in the past. Denies fever, chills. Reports some left-sided chest pain. - Exam Vitals: Temp Pulse Resp BP Pulse Ox 97.5 F L 102 14 96/66 93 12/10/17 07:46 12/10/17 09:55 12/10/17 09:55 12/10/17 09:55 12/10/17 09:55 Exam: General: Well-developed male lying comfortably in bed in no acute distress, appears chronically sick, pallor+ Chest: Normal thoracic expansion. Normal breath sounds. Clear to auscultation. Heart: Normal S1 & S2; rhythmic. No rubs or murmurs. Tachycardic. Abdomen: distended, ascites+, RLQ with subcutaneous skin thickening and focal swelling, likely due to previous peritoneal catheter and paracentesis; soft and nontender Extremities: No clubbing, cyanosis or edema. No calf tenderness. Normal distal pulses. Neurological: Awake, alert and oriented to person, place and time. No focal deficits. Generalized weakness+ - Assessment and Plan (1) Elevated troponin Current Visit: Yes Status: Acute Assessment and Plan: Presented with syncope and hypotension, associated with mild troponin leak, peak troponin 0.22. Currently trending down. Could be demand ischemia. Continue telemetry monitoring, follow-up echocardiogram. Cardiology has been consulted, follow-up recommendations. (2) Syncope Current Visit: Yes Status: Suspected Assessment and Plan: Probably vasovagal syncope, 2 episodes of confusion and loss of consciousness after getting up from supine position and walking to the bathroom. Associated hypotension. Continue IV hydration. Follow-up transthoracic echocardiogram and carotid Doppler. Follow up cardiology recommendations. Conservative management due to underlying metastatic pancreatic cancer. MRI brain showed no intracranial metastatic disease, shows mild chronic small vessel ischemic changes. EKG reviewed independently, shows sinus tachycardia. (3) Ascites Current Visit: Yes Status: Acute Assessment and Plan: Recurrent malignant ascites. Patient is not agreeable to indwelling peritoneal catheter placement due to history of previous malfunction and infection. Interventional radiology has been consulted for paracentesis. (4) Hypotension Current Visit: Yes Status: Acute Assessment and Plan: Patient's baseline blood pressure is probably around 90/60 due to underlying liver disease and cancer. Received a dose of IV albumin at admission. Antihypertensives have been held as an outpatient. Continue IV hydration and monitor closely. Comments: remains hypotensive , Albumen IVP continues to run. Non-symptomatic . (5) Diabetes mellitus Current Visit: Yes Status: Chronic Assessment and Plan: Patient is off oral hypoglycemic medications at home. Noted to have anorexia due to underlying malignancy. Continue Accu-Chek blood glucose monitoring, diet as tolerated. (6) Pancreatic adenocarcinoma Current Visit: Yes Status: Chronic Assessment and Plan: Pancreatic cancer with liver metastases and peritoneal carcinomatosis. On chemotherapy with mFolfirinox; follows with Oncology as outpatient; (7) Advance care planning Current Visit: Yes Status: Acute Assessment and Plan: discussed goals of care; patient is not under Hospice care at this time, but care seems to be comfort for the most part, wants to pursue chemotherapy; Code status- DNR-CCA/DNI; POA is his , who is at bedside; (8) SIADH (syndrome of inappropriate ADH production) Current Visit: Yes Status: Chronic Assessment and Plan: Due to underlying malignancy. Serum sodium currently better than his baseline, 126 today. Continue demeclocycline and fluid restriction as tolerated. DVT Prophylaxis: Start subcutaneous Lovenox. - Time Spent with Patient Total time spent is greater than 50% in coordination of care (as documented) at patient's floor/unit and/or counseling patient: Plan of Care Discussed with: family Internal Medicine: Result - Labs CBC & Chem 7: 12/10/17 05:21 12/10/17 05:21 - ABG Interpretation ABG results: PT/INR, D-dimer PT 14.0 Seconds (9.4-12.1) H 12/09/17 04:54 Consult Discharge Plan - Plan Referrals: Larissa Mcgowan, COMPUT[employer] [Primary Care Provider] - (2) Syncope Qualifiers: Syncope type: vasovagal syncope Qualified Code(s): R55 - Syncope and collapse (3) Ascites Qualifiers: Ascites type: malignant Qualified Code(s): R18.8 - Other ascites (4) Hypotension Qualifiers: Hypotension type: idiopathic hypotension Qualified Code(s): I95.0 - Idiopathic hypotension (5) Diabetes mellitus Qualifiers: Diabetes mellitus type: type 2 Diabetes 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
[2017-12-10] MEDS ORDERED: Isovue-370 500 ML INFUS..BTL IV ONE (13:59)
--- NOTE | 2017-12-10 14:38 | Oncology Inp Consult Note ---
<MakaylaMorro pelaez Jon - Last Filed: 12/10/17 18:08> Date of Encounter: 12/10/17 Time of Encounter: 14:34 Assessment and Plan (1) Pulmonary embolism Status: Acute Assessment and plan: Patient has large saddle PE on CTA. Likely contributing to patient's syncope. Submassive PE as the patient is hemodynamically stable, we will start Lovenox 1 mg/kg twice a day, can likely transition to 1.5 mg/kg daily at discharge. Qualifiers: Pulmonary embolism type: saddle Chronicity: acute Acute cor pulmonale presence: without acute cor pulmonale Qualified Code(s): I26.92 - Saddle embolus of pulmonary artery without acute cor pulmonale (2) Syncope Status: Suspected Assessment and plan: Likely related to PE, further management as discussed above. Qualifiers: Syncope type: vasovagal syncope Qualified Code(s): R55 - Syncope and collapse (3) Pancreatic adenocarcinoma Status: Chronic Assessment and plan: Currently undergoing treatment with mFOLFIRINOX, patient completed 2 cycles plan was for him to follow up this week for his third cycle. Discussed at length with the patient his diagnosis and prognosis as well as his goals for treatment. At this point he appears more interested in being comfortable rather than aggressively treating his cancer. He would like to hear about what hospice has to offer, we will consult palliative care to discuss his treatment options (4) Ascites Status: Chronic Assessment and plan: Recurrent. Related to his pancreatic adenocarcinoma as discussed above. Ascites has been decreasing with treatment however it has gotten slightly worse. Plan for paracentesis today with IR. Qualifiers: Ascites type: malignant Qualified Code(s): R18.0 - Malignant ascites - Data of Consult Patient: known to practice within the last 3 years Consult date: 12/10/17 Requesting Physician: Alicia Edouard MD Primary Care Provider: Larissa Mcgowan CNP - Consult Narrative Reason for consult: Pancreatic adenocarcinoma History of present illness: Mr. Mary is a 62 year old male with history of metastatic pancreatic adenocarcinoma, SIADH who presented after syncopal episode. Patient states that he was sitting on the toilet and the next thing he knew is he woke up on before. Shortly after he had another episode where he passed out. He states he felt fine prior to these episodes and denies any preceding symptoms. Patient 's heard him fall and quickly came to his aid. No evidence of any seizure activity. He reports increased abdominal distention but denies pain or early satiety. Patient is currently undergoing treatment for his pancreatic cancer with mFOLFIRINOX, on cycle #3. Past Med Surg Social Fam HX - Past Medical History Medical history: asthma, cancer, COPD, diabetes, hyperlipidemia, hypertension, liver disease, malignancy, syncope Additional medical history: diverticulosis. pancreatic cancer. liver cancer Psychiatric history: anxiety - Past Surgical History Surgical History: cataract, cholecystectomy, herniorrhaphy Additional surgical history: colonoscopy - Social History Smoking Status: Never smoker Smokeless Tobacco Status: No Alcohol use: none Drug use: none - Family History Mother Adopted: No Living Status: Hx Family Cardiac Disorders: Yes (htn, angina) Father Adopted: No Living Status: Hx Family Cardiac Disorders: Yes (heart attack, open heart surgery) Hx Family Endocrine Disorder: Yes (DM) Medications and Allergies Lansoprazole [Prevacid] 30 mg PO BID 12/24/16 [History] Montelukast [Singulair] 10 mg PO HS 12/24/16 [History] Loratadine [Claritin] 10 mg PO DAILY tab 12/25/16 [Rx] Albuterol Neb [Proventil Neb] 2.5 mg IH Q4HR PRN 02/20/17 [History] Albuterol Sulfate [Albuterol Inhaler] 2 puff IH Q4H PRN 02/20/17 [History] Finasteride [Proscar] 5 mg PO DAILY 05/29/17 [History] Budesonide/Formoterol 160/4.5 [Symbicort 160/4.5] 2 puff IH BIDR 10/25/17 [ History] Tiotropium [Spiriva] 18 mcg IH DAILY 10/25/17 [History] Sennosides/Docusate Sodium [Senna Plus] 2 each PO BID #60 tablet 10/30/17 [Rx] Lidocaine/Prilocaine [Emla] 1 appl TP DAILY #30 gm 11/05/17 [Rx] Metoclopramide HCl 5 mg PO QIDAC #150 tablet 11/05/17 [Rx] Albuterol Sulfate [Proventil] 4 mg PO TID 11/14/17 [History] Oxycodone HCl [Oxaydo] 10 mg PO Q4H PRN 11/14/17 [History] Tramadol HCl [Ultram] 50 - 100 mg PO Q6H PRN 14 Days #30 tab 11/21/17 [Rx] Demeclocycline [Declomycin] 300 mg PO Q12HR #120 tablet 11/29/17 [Rx] LORazepam [Ativan] 1 - 2 tab PO Q6H PRN 14 Days #30 tablet 12/06/17 [Rx] Ondansetron [Zofran ODT] 8 mg SL Q8H PRN #30 tab 12/06/17 [Rx] 3 Allergy/AdvReac Type Severity Reaction Status Date / Time azithromycin Allergy Rash Verified 12/09/17 09:30 [From Zithromax Z-Michael] ciprofloxacin [From Cipro] Allergy Rash Verified 12/09/17 09:30 mold Allergy Rash Verified 12/09/17 09:30 Amoxicillin [From Augmentin] AdvReac Gastrointestinal Verified 12/09/17 09:30 Upset clavulanic acid AdvReac Gastrointestinal Verified 12/09/17 09:30 [From Augmentin] Upset dust Allergy Wheezing Uncoded 12/09/17 09:30 Constitutional: Present: anorexia. Absent: chills, fever(s) Nose, mouth and throat: Absent: sore throat Cardiovascular: Present: chest pain (occasional). Absent: irregular heart rhythm, palpitations, pedal edema Respiratory: Absent: cough, dyspnea Gastrointestinal: Present: bloating, nausea. Absent: early satiety, vomiting Neurological: Present: syncope. Absent: confusion, tingling Oncology - Exam - Constitutional Vitals: Temp Pulse Resp BP Pulse Ox 97.5 F L 102 14 96/66 93 12/10/17 07:46 12/10/17 09:55 12/10/17 09:55 12/10/17 09:55 12/10/17 09:55 General appearance: no acute distress - Head Head exam: Present: atraumatic, normal inspection, normocephalic - Eye Eye exam: Present: EOMI, PERRL - ENT ENT exam: Present: mucous membranes dry - Respiratory Respiratory exam: Present: CTAB. Absent: rales, rhonchi, wheezes - Cardiovascular Cardiovascular exam: Present: RRR. Absent: rubs, systolic murmur - GI/Abdominal GI/Abdominal exam: Present: distended (+ fluid wave), hypoactive bowel sounds, soft. Absent: tenderness - Extremities Exam Extremities exam: Absent: calf tenderness, pedal edema - Neurological Exam Neurological exam: Present: alert, oriented X3, no focal deficits - Skin Skin exam: Present: pallor Consult Discharge Plan - Plan Referrals: Larissa Mcgowan CNP [Primary Care Provider] - <ConstanceCoryGee S - Last Filed: 12/10/17 22:02> Date of Encounter: 12/10/17 - Data of Consult Requesting Physician: Alicia Edouard MD Primary Care Provider: Larissa Mcgowan CNP - Consult Narrative History of present illness: Mr. Mary is a 62 year old male Oncology - Exam - Constitutional Vitals: Temp Pulse Resp BP Pulse Ox 98.9 F 108 17 90/64 92 12/10/17 18:38 12/10/17 18:38 12/10/17 20:10 12/10/17 18:38 12/10/17 20:10 Oncology - Results Labs: 3 12/10/17 12:22 POC Glucose 206 H - Attending Attestation I have seen and examined Mr. Mary and agree with the resident's assessment. He has been admitted with a saddle pulmonary embolism which induced syncope. He has been placed on lovenox, and may be transitioned to 1.5mg/kg dosing at time of discharge. Agree with not pursuing thrombolysis as he is not SOB/ hypoxic. Overall, he has had a very difficult course of care, which is not a surprise given his presentation and nature of disease. We attempted an aggressive course of therapy, and I discussed that we are likely prolonging suffering at this time. In addition, his PS has declined. I discussed utilizing hospice as a bridge to . He does not desire to pursue further therapy at this time as well. He is DNR CCA. I have requested palliative care consultation. Prognosis was discussed, and I would estimate weeks to a few months. Inpatient Charges Provider: Dr. Abraham Nolasco Consult Charges: [id number]
--- NOTE | 2017-12-10 16:02 | Pulmonology Consult Note ---
Date of Encounter: 12/10/17 Time of Encounter: 15:56 Assessment and Plan (1) Saddle pulmonary embolus Current Visit: Yes Status: Acute The patient has a submassive PE currently he is hemodynamically stable although borderline hypotensive not too far off his baseline however. I outlined to the patient options of this time which include systemic TPA which is not indicated unless hemodynamic compromise. Possibility of catheter directed tPA given submassive features with right heart strain which could be considered but he would have to be referred to a tertiary referral center such as [facility] for this versus his initiation of anticoagulation and monitoring. Patient had a candid discussion expressing that he really did not want to leave this area or his family at this time to be transferred and wanted to just take a conservative approach. I explained that although I think that he will remained hemodynamically stable throughout this given the chronicity there is no guarantee any may become much more hemodynamically unstable requiring vasopressor support etc. He is currently DNA R/DNI and expressed to me candidly "I wish somebody would just put me to sleep" expressing that he is losing his desire to continue to receive aggressive treatment given the underlying nature of terminal illness. At this point I recommend full anticoagulation and continued monitoring of patient's hemodynamic status he and his family will decide that if he should did decline further if they want to pursue more aggressive treatment such as vasopressors etc. which is a reasonable approach Given degree of right heart strain I would caution against the use of ty blocking agent such as beta blockers or calcium channel blockers. I would avoid nitrates under any circumstances and I would also caution against aggressive volume expansion. If patient becomes hypotensive it is reasonable to trial of very's small fluid challenge and I favor in this patient albumin such as 250 mL of 5% bolused and if no improvement in hemodynamics I would favor against additional volume challenges this could lead to worsening RV dysfunction/failure. Favoring initiation of vasopressor such as norepinephrine Qualifiers: Chronicity: acute Acute cor pulmonale presence: with acute cor pulmonale Qualified Code(s): I26.02 - Saddle embolus of pulmonary artery with acute cor pulmonale (2) COPD (chronic obstructive pulmonary disease) Current Visit: Yes Status: Acute No evidence of acute exacerbation continue schedule bronchodilators Qualifiers: Emphysema type: unspecified Qualified Code(s): J43.9 - Emphysema, unspecified (3) Goals of care, counseling/discussion Current Visit: Yes Status: Acute I personally discussed the case with his primary oncologist Dr. Nolasco explaining my assessment and plan. Overall prognosis appears to be very grim and it would be very appropriate for transition to hospice his oncologist will have this discussion with them and formal consultation a palliative care can be helpful (4) Pancreas cancer Current Visit: Yes Status: Chronic This is being followed by oncology appears to have a terminal condition and poor performance status Thank you for this consultation I expressed my assessment and plan directly with the primary hospitalist Dr. Edouard Qualifiers: Pancreatic malignancy location: unspecified Qualified Code(s): C25.9 - Malignant neoplasm of pancreas, unspecified History of Present Illness Consult date: 12/10/17 Requesting physician: Alicia Edouard Reason for consult: pulmonary embolism History of present illness: This is a pleasant 62-year-old gentleman with a past medical history of Metastatic pancreatic adenocarcinoma with associated peritoneal carcinomatosis and extensive liver metastases with recent Peritoneal drain for recurrent ascites which unfortunately failed and had to be removed. He presented to the emergency room yesterday after a syncopal episode while sitting on the toilet at home he fell off the toilet he denies any injury from following othere some minor scrapes and does not recall hitting his head he does not have any chest pain or palpitations prior to the fall although he is sure he passed out. In the ED a chest x-ray was negative head CT is negative. Abdominal CT showed increased ascites and high-grade lesion consistent with his known liver metastatic disease. On admission to the ED looks like his blood pressure was 106/80 and saturation was 90% on 3 L nasal cannula he was noted in any cardiopulmonary distress Initial labs were notable for normal white count mild chronic anemia without evidence of coagulopathy chronic hyponatremia he had a mild troponin elevation that peaked at 0.2 to BNP was within normal limits ECG without clear evidence of ischemia Cardiology was consulted and felt that conservative management was best for troponin elevation in the context of syncope number recommended a CT angiogram be performed a CTA was notable for a saddle embolus and some evidence of right heart strain. Pulmonary was consulted for further evaluation of this Today the patient says he feels comfortable he is not short of breath he denies hemoptysis or significant chest pressure/pain. Although his been hemodynamically stable since he has been on the floor his blood pressure has been on the lower side but looking back over his record his consistently seems to run near outpatient records. In addition to the above he history of asthma/COPD although is a lifelong nonsmoker he did work at the local [employer] he follows with [employer] for this Past Med Surg Social Fam HX - Past Medical History Medical history: asthma, cancer, COPD, diabetes, hyperlipidemia, hypertension, liver disease, malignancy, syncope Additional medical history: diverticulosis. pancreatic cancer. liver cancer Psychiatric history: anxiety - Past Surgical History Surgical History: cataract, cholecystectomy, herniorrhaphy Additional surgical history: colonoscopy - Social History Smoking Status: Never smoker Smokeless Tobacco Status: No Alcohol use: none Drug use: none - Family History Mother Adopted: No Living Status: Hx Family Cardiac Disorders: Yes (htn, angina) Father Adopted: No Living Status: Hx Family Cardiac Disorders: Yes (heart attack, open heart surgery) Hx Family Endocrine Disorder: Yes (DM) Medications and Allergies Lansoprazole [Prevacid] 30 mg PO BID 12/24/16 [History] Montelukast [Singulair] 10 mg PO HS 12/24/16 [History] Loratadine [Claritin] 10 mg PO DAILY tab 12/25/16 [Rx] Albuterol Neb [Proventil Neb] 2.5 mg IH Q4HR PRN 02/20/17 [History] Albuterol Sulfate [Albuterol Inhaler] 2 puff IH Q4H PRN 02/20/17 [History] Finasteride [Proscar] 5 mg PO DAILY 05/29/17 [History] Budesonide/Formoterol 160/4.5 [Symbicort 160/4.5] 2 puff IH BIDR 10/25/17 [ History] Tiotropium [Spiriva] 18 mcg IH DAILY 10/25/17 [History] Sennosides/Docusate Sodium [Senna Plus] 2 each PO BID #60 tablet 10/30/17 [Rx] Lidocaine/Prilocaine [Emla] 1 appl TP DAILY #30 gm 11/05/17 [Rx] Metoclopramide HCl 5 mg PO QIDAC #150 tablet 11/05/17 [Rx] Albuterol Sulfate [Proventil] 4 mg PO TID 11/14/17 [History] Oxycodone HCl [Oxaydo] 10 mg PO Q4H PRN 11/14/17 [History] Tramadol HCl [Ultram] 50 - 100 mg PO Q6H PRN 14 Days #30 tab 11/21/17 [Rx] Demeclocycline [Declomycin] 300 mg PO Q12HR #120 tablet 11/29/17 [Rx] LORazepam [Ativan] 1 - 2 tab PO Q6H PRN 14 Days #30 tablet 12/06/17 [Rx] Ondansetron [Zofran ODT] 8 mg SL Q8H PRN #30 tab 12/06/17 [Rx] 3 Allergy/AdvReac Type Severity Reaction Status Date / Time azithromycin Allergy Rash Verified 12/09/17 09:30 [From Zithromax Z-Michael] ciprofloxacin [From Cipro] Allergy Rash Verified 12/09/17 09:30 mold Allergy Rash Verified 12/09/17 09:30 Amoxicillin [From Augmentin] AdvReac Gastrointestinal Verified 12/09/17 09:30 Upset clavulanic acid AdvReac Gastrointestinal Verified 12/09/17 09:30 [From Augmentin] Upset dust Allergy Wheezing Uncoded 12/09/17 09:30 All Systems: The remainder of the systems were reviewed and are negative Physical Examination General appearance: no acute distress, other (Sleepy occasionally but easily arousable; pale appearing) Eyes: nonicteric ENT: oropharynx dry Neck: supple, no lymphadenopathy Effort: normal Cardiovascular: regular rate and rhythm Gastrointestinal: normoactive bowel sounds, other (Distended and dull to percussion no significant tenderness to palpation) Integumentary: normal Extremities: no cyanosis, no edema, no clubbing Musculoskeletal: no deformities normal mental status, non-focal exam mood appropriate Results - Laboratory Findings CBC and BMP: 12/10/17 05:21 12/10/17 05:21 PT/INR, D-dimer PT 14.0 Seconds (9.4-12.1) H 12/09/17 04:54 Abnormal lab findings: Abnormal lab results RBC 3.87 M/mcL (4.19-5.50) L 12/10/17 05:21 Hgb 10.9 g/dL (12.9-16.9) L 12/10/17 05:21 Hct 32.7 % (37.5-50.1) L 12/10/17 05:21 RDW 14.8 % (11.5-14.5) H 12/10/17 05:21 MPV 8.5 fL (9.4-12.4) L 12/10/17 05:21 PT 14.0 Seconds (9.4-12.1) H 12/09/17 04:54 Sodium 126 mEq/L (136-145) L 12/10/17 05:21 Chloride 94 mEq/L (98-107) L 12/10/17 05:21 Creatinine 0.50 mg/dL (0.70-1.30) L 12/10/17 05:21 BUN/Creatinine Ratio 28 (6-26) H 12/10/17 05:21 Glucose 159 mg/dL (70-105) H 12/10/17 05:21 Calculated Osmolality 266 (280-300) L 12/10/17 05:21 Calcium 8.3 mg/dL (8.6-10.3) L 12/10/17 05:21 Phosphorus 4.7 mg/dL (2.7-4.5) H 12/09/17 04:54 Alkaline Phosphatase 115 Units/L (34-104) H 12/10/17 05:21 Troponin I 0.18 ng/mL (< 0.04) H* 12/10/17 05:21 Serum Total Protein 5.3 g/dL (6.4-8.9) L 12/10/17 05:21 Albumin 2.7 g/dL (3.5-5.7) L 12/10/17 05:21 Albumin/Globulin Ratio 1.0 (1.1-2.2) L 12/10/17 05:21 Amylase 14 Units/L (29-103) L 12/10/17 05:21 Lipase 10 Units/L (11-82) L 12/10/17 05:21 Urine Protein 30 mg/dL (Neg-Trace) H 12/09/17 15:32 Urine Microscopic RBC 15-30 per hpf (0-3) H 12/09/17 15:32 Ur Squamous Epith Cells Many per lpf (None-Few) H 12/09/17 15:32 - Diagnostic Findings Chest x-ray: report reviewed, image reviewed CT scan - chest: report reviewed, image reviewed Additional studies: Echocardiogram - Clinical Findings Intake & Output: Intake & Output 12/09/17 12/10/17 12/10/17 23:59 07:59 15:59 Intake Total 120 / 120 Balance 120 / 120 Consult Discharge Plan - Plan Referrals: Larissa Mcgowan, [employer] [Primary Care Provider] -
[2017-12-10] MEDS: Albuterol 2.5 MG/3 ML NEBULIZER IH PRN (16:10)
--- NOTE | 2017-12-10 16:49 | Event Note ---
Date of Encounter: 12/10/17 Time of Encounter: 16:46 CT angiogram of chest history of syncopal episodes, borderline hypotension, sinus tachycardia and underlying history of malignancy. Imaging reviewed independently, shows huge saddle pulmonary embolus with RV strain. Case discussed with patient and his family at bedside. Explained that he is sick and is at risk for multiple cardiopulmonary complications including from PE; Case also d/w Oncology and Critical care/Pulmonology; Patient and family understand his grave clinical condition, given his other comorbidities and poor functional status, decided to defer transferring to tertiary care center at this time; leaning towards Hospice, pending Oncologist opinion; Plan- Started on STAT therapeutic Lovenox; To monitor vital signs closely- use PRN IV Albumin infusion for worsening hypotension; Supplemental O2 and supportive care; Tylenol and PRN Oxycodone for chest pain;
[2017-12-10] MEDS: *HR* Enoxaparin 80 MG/0.8 ML SYRINGE SQ SCH (17:20)
[2017-12-10] MEDS: *HR* LORazepam 0.5 MG TABLET PO PRN (17:20)
[2017-12-10] MEDS: Sennosides/Docusate Sodium TABLET PO SCH (21:35)
[2017-12-11] MEDS: *HR* Enoxaparin 80 MG/0.8 ML SYRINGE SQ SCH ×2 (05:38→17:45)
[2017-12-11] MEDS: traMADol 50 MG TABLET PO PRN ×2 (05:44→19:33)
[2017-12-11] MEDS: *HR* LORazepam 0.5 MG TABLET PO PRN ×2 (05:45→19:33)
[2017-12-11] MEDS ORDERED: *HR* Enoxaparin 40 MG/0.4 ML SYRINGE SQ SCH (06:00)
[2017-12-11] MEDS: Budesonide/Formoterol 160/4.5 1 PUFF INH IH SCH ×2 (07:49→19:48)
[2017-12-11] MEDS: Tiotropium 18 MCG inhalation IH SCH (07:50)
[2017-12-11] MEDS: Finasteride 5 MG TABLET PO SCH (07:57)
[2017-12-11] MEDS: Sennosides/Docusate Sodium TABLET PO SCH ×2 (07:58→20:46)
--- NOTE | 2017-12-11 08:25 | Event Note ---
Date of Encounter: 12/11/17 Time of Encounter: 08:23 - Cardiology Event Note CTA reviewed with saddle PE noted. Suspect syncope, symptoms related to PE. Right heart strain noted per TTE, agree with pulmonary recommendations regarding fluid management. Cardiology will sign off. Re-consult as needed. Thank you.
--- NOTE | 2017-12-11 08:34 | Oncology Inp Progress Note ---
<Morro Ibrahim - Last Filed: 12/11/17 17:03> Date of Encounter: 12/11/17 Time of Encounter: 08:32 (1) Pulmonary embolism Current Visit: Yes Status: Acute Assessment and plan: Patient has large saddle PE on CTA. Likely contributing to patient's syncope. Submassive PE as the patient is hemodynamically stable, we will start Lovenox 1 mg/kg twice a day, can likely transition to 1.5 mg/kg daily at discharge. No indication for thrombolysis or catheter directed therapy given the patient's hemodynamic stability as well as multiple comorbidities Qualifiers: Pulmonary embolism type: saddle Chronicity: acute Acute cor pulmonale presence: with acute cor pulmonale Qualified Code(s): I26.02 - Saddle embolus of pulmonary artery with acute cor pulmonale (2) Syncope Current Visit: Yes Status: Acute Assessment and plan: Likely related to PE, further management as discussed above. Qualifiers: Syncope type: unspecified Qualified Code(s): R55 - Syncope and collapse (3) Pancreatic adenocarcinoma Current Visit: Yes Status: Chronic Assessment and plan: Recently treatment with mFOLFIRINOX, patient completed 2 cycles. Discussed at length with the patient his diagnosis and prognosis as well as his goals for treatment. At this point he appears more interested in being comfortable rather than aggressively treating his cancer. He would like to hear about what hospice has to offer, we will consult palliative care to discuss his treatment options. Case discussed with palliative care team (4) Ascites Current Visit: No Status: Chronic Assessment and plan: Recurrent. s/p paracentesis Qualifiers: Ascites type: malignant Qualified Code(s): R18.0 - Malignant ascites Oncology: Subj Interval history: Patient seen and examined at bedside. Patient states that he feels about the same. Still having occasional episodes of chest pain however these are less frequent. Denies shortness of breath. Otherwise has no complaints. - Constitutional Vitals: Vital Signs Temp Pulse Resp BP Pulse Ox 12/11/17 07:57 98.7 F 106 16 97/65 90 12/11/17 07:51 18 95 12/11/17 03:59 98.1 F 106 16 96/68 93 12/10/17 23:36 98.9 F 111 16 101/70 90 12/10/17 20:10 17 92 12/10/17 18:38 98.9 F 108 16 90/64 95 12/10/17 16:11 16 94 12/10/17 16:04 98.1 F 110 14 92/66 94 Intake and Output 12/10/17 12/11/17 12/11/17 23:59 07:59 15:59 Intake Total 150 / 150 Output Total 300 / 300 Balance -150 / -150 Intake: Oral 150 / 150 Output: Catheter 300 / 300 Other: Meal Dinner Percent of Meal Consumed 10% Weight 67.6 kg General appearance: cooperative, no acute distress - Respiratory Respiratory exam: Present: decreased breath sounds. Absent: rales, rhonchi - Cardiovascular Cardiovascular exam: Present: tachycardia. Absent: diastolic murmur, irregular rhythm, systolic murmur - GI/Abdominal GI/Abdominal exam: Present: diminished bowel sounds, distended (mild, improved from yesterday), soft. Absent: tenderness - Extremities Exam Extremities exam: Absent: pedal edema, tenderness - Neurological Exam Neurological exam: Present: alert, oriented X3 Oncology: Obj Data - Labs CBC & Chem 7: 12/10/17 05:21 12/10/17 05:21 Labs: Laboratory Results - last 24 hr 12/10/17 12:22 POC Glucose 206 H - Impressions Impressions Chest CTA 12/10/17 14:30 IMPRESSION: 1. Saddle embolus with evidence of right heart strain. Extensive thrombus extends to the smaller pulmonary arteries bilaterally as described above. 2. Small pleural effusion with right base opacity which may represent atelectasis or infection. 3. Redemonstration of multiple hepatic metastases seen to better advantage on CT dated 12/09/2017. 4. Nodular appearance of the liver with severe abdominal ascites, partially visualized. 5. Moderate hiatal hernia. Findings were discussed with Dr. Ibrahim on 12/10/2017 at 3:35 p.m. D/ / 12/10/2017 15:49:50 Lena Dacosta MD / kim Interpreting Provider: Lena Dacosta MD - ABG Interpretation ABG results: PT/INR, D-dimer PT 14.0 Seconds (9.4-12.1) H 12/09/17 04:54 Consult Discharge Plan - Plan Referrals: Larissa Mcgowan, TITLE SUPERVISOR [Primary Care Provider] - <Gee Nolasco S - Last Filed: 12/11/17 22:18> Date of Encounter: 12/11/17 - Constitutional Vitals: Vital Signs Temp Pulse Resp BP Pulse Ox 12/11/17 19:49 15 93 12/11/17 19:11 99.8 F H 115 16 104/74 93 12/11/17 15:50 98.9 F 110 17 111/80 93 12/11/17 11:06 98.1 F 110 17 93/68 93 12/11/17 10:42 16 90 12/11/17 07:57 98.7 F 106 16 97/65 90 12/11/17 07:51 18 95 12/11/17 03:59 98.1 F 106 16 96/68 93 12/10/17 23:36 98.9 F 111 16 101/70 90 Oncology: Obj Data - Labs CBC & Chem 7: 12/10/17 05:21 12/10/17 05:21 - ABG Interpretation ABG results: PT/INR, D-dimer PT 14.0 Seconds (9.4-12.1) H 12/09/17 04:54 Inpatient Charges Provider: Dr. Abraham Nolasco Follow Up: [id number] - Attending Attestation I examined this patient and my medical decision-making was reviewed with the resident. I agree with the documented findings, disposition and treatment plan as described except to the extent set forth below. He is doing better after paracentesis. Still very debilitated and weak. Unable to ambulate to the bathroom due to generalized weakness. Poor appetite and oral intake. Palliative care met with the patient, and hospice at home has been arranged. Tentative discharge tomorrow. I revisited this decision with them again today, and he agrees this is the best option for him. I concur and believe his qol will be improved off therapy. He is DNR [facility]. I will arrange f/u with me in 3- 4 weeks if the patient desires. We will otherwise sign off. Please call with questions.
--- NOTE | 2017-12-11 10:09 | Palliative - Consult Note ---
Date of Encounter: 12/11/17 Time of Encounter: 10:00 - Assessment and Plan (1) Cancer associated pain Current Visit: Yes Status: Acute Assessment and plan: Patient currently comfortable and states that pain medications working well. He prefers the Tramadol over Oxycodone at this point, and states that it doesn' t make him as groggy. Continue and monitor. (2) Constipation Current Visit: Yes Status: Acute Assessment and plan: He previously had diarrhea with chemotherapy, however, now with some constipation. He has been restarted on Senokot. Qualifiers: Constipation type: unspecified constipation type Qualified Code(s): K59.00 - Constipation, unspecified (3) Anxiety Current Visit: Yes Status: Acute Assessment and plan: Continue with PRN Lorazapam 0.5 PRN and titrate if needed. Utilized x1 last 24 hours. (4) Goals of care, counseling/discussion Current Visit: Yes Status: Acute Assessment and plan: Discussion held with patient, , Claudia, and daughter Marco Antonio regarding goals of care and advanced care planning. Patient has had advanced directives and code status discussed at the cancer center, and living will/DPOA were completed. describes conversation held with Dr. Nolasco, Oncologist, and states that patient does not want to undergo any further cancer treatment. However, he wants to ensure that he can still have intermittent paracentesis when uncomfortable and needed. States this causes him a great deal of pain. He had pleurx cath last month and states it was a horrible experience, and he will not let another be placed. They desire to continue Lovenox for treatment of PE as well. Morro does desire hospice care upon discharge. Referral called to [facility], and I spoke with Smitha Ortiz, hospice nurse and discussed his desire to continue intermittent paracentesis. D/W Dr. Edouard. Will work on DME setup today and possibly discharge home tomorrow with [facility]. (5) Ascites Current Visit: No Status: Chronic Assessment and plan: Paracentesis performed yesterday Qualifiers: Ascites type: malignant Qualified Code(s): R18.0 - Malignant ascites (6) Saddle pulmonary embolus Current Visit: Yes Status: Acute Assessment and plan: Patient currently on subcutaneous Lovenox. Qualifiers: Chronicity: acute Acute cor pulmonale presence: with acute cor pulmonale Qualified Code(s): I26.02 - Saddle embolus of pulmonary artery with acute cor pulmonale Palliative-CN HPI - Data of Consult Consult date: 12/11/17 Requesting Physician: Alicia Edouard MD Primary Care Provider: Larissa Mcgowan CNP - Consult Narrative History of present illness: Mr. Mary is a 62 year old male with a history of metastatic pancreatic disease recently diagnosed in October, who presented to hospital after he had a syncopal episode on the toilet while trying to have a BM. He has had 2 cycles of chemotherapy and is managed by Dr. Gee Nolasco of [facility]. He has tolerated treatments fairly with some nausea and diarrhea, and has had recurrent ascites, requiring paracentesis every couple weeks. He had pleurx cath placed last month, however, he states this did not drain well, caused him discomfort, and ended up infected. Imaging on admission demonstrated a large saddle pulmonary embolus with right heart strain. Was started on Lovenox. Oncology and cardiology consults were obtained. at bedside, states that his performance status is declining, and appetite has greatly decreased. He is having difficult ambulating to bathroom and getting in the shower. Other pertinent history includes: asthma, COpD, diabeted, and hyperlipidemia. Upon my visit, he is pleasant, alert and oriented, but drowsy, and falls asleep at time during conversation. He denies any pain at present, nausea and diarrhea have improved now that he is several days out from chemotherapy. Does have some mild anxiety, that Ativan has alleviated. He has increasing weakness , decreased ability to care for himself at home - palliative Karnofsky scale 40 -50%. and daughter are at bedside. Palliative care consulted to assist with symptom management, as well as goals of care discussion and possible hospice transition upon discharge. CC: Alicia Edouard MD Past Med Surg Social Fam HX - Past Medical History Medical history: asthma, cancer, COPD, diabetes, hyperlipidemia, hypertension, liver disease, malignancy, syncope Additional medical history: diverticulosis. pancreatic cancer. liver cancer Psychiatric history: anxiety - Past Surgical History Surgical History: cataract, cholecystectomy, herniorrhaphy Additional surgical history: colonoscopy - Social History Smoking Status: Never smoker Smokeless Tobacco Status: No Alcohol use: none Drug use: none - Family History Mother Adopted: No Living Status: Hx Family Cardiac Disorders: Yes (htn, angina) Father Adopted: No Living Status: Hx Family Cardiac Disorders: Yes (heart attack, open heart surgery) Hx Family Endocrine Disorder: Yes (DM) Medications and Allergies Lansoprazole [Prevacid] 30 mg PO BID 12/24/16 [History] Montelukast [Singulair] 10 mg PO HS 12/24/16 [History] Loratadine [Claritin] 10 mg PO DAILY tab 12/25/16 [Rx] Albuterol Neb [Proventil Neb] 2.5 mg IH Q4HR PRN 02/20/17 [History] Albuterol Sulfate [Albuterol Inhaler] 2 puff IH Q4H PRN 02/20/17 [History] Finasteride [Proscar] 5 mg PO DAILY 05/29/17 [History] Budesonide/Formoterol 160/4.5 [Symbicort 160/4.5] 2 puff IH BIDR 10/25/17 [ History] Tiotropium [Spiriva] 18 mcg IH DAILY 10/25/17 [History] Sennosides/Docusate Sodium [Senna Plus] 2 each PO BID #60 tablet 10/30/17 [Rx] Lidocaine/Prilocaine [Emla] 1 appl TP DAILY #30 gm 11/05/17 [Rx] Metoclopramide HCl 5 mg PO QIDAC #150 tablet 11/05/17 [Rx] Albuterol Sulfate [Proventil] 4 mg PO TID 11/14/17 [History] Oxycodone HCl [Oxaydo] 10 mg PO Q4H PRN 11/14/17 [History] Tramadol HCl [Ultram] 50 - 100 mg PO Q6H PRN 14 Days #30 tab 11/21/17 [Rx] Demeclocycline [Declomycin] 300 mg PO Q12HR #120 tablet 11/29/17 [Rx] LORazepam [Ativan] 1 - 2 tab PO Q6H PRN 14 Days #30 tablet 12/06/17 [Rx] Ondansetron [Zofran ODT] 8 mg SL Q8H PRN #30 tab 12/06/17 [Rx] 3 Allergy/AdvReac Type Severity Reaction Status Date / Time azithromycin Allergy Rash Verified 12/09/17 09:30 [From Zithromax Z-Michael] ciprofloxacin [From Cipro] Allergy Rash Verified 12/09/17 09:30 mold Allergy Rash Verified 12/09/17 09:30 Amoxicillin [From Augmentin] AdvReac Gastrointestinal Verified 12/09/17 09:30 Upset clavulanic acid AdvReac Gastrointestinal Verified 12/09/17 09:30 [From Augmentin] Upset dust Allergy Wheezing Uncoded 12/09/17 09:30 All systems: reviewed and no additional remarkable complaints except as stated ( generalized weakness, nausea, vomiting, abd distention, abdominal pain, constipation/diarrhea,) Palliative Care-Exam - Constitutional Vitals: Temp Pulse Resp BP Pulse Ox 98.7 F 106 16 97/65 90 12/11/17 07:57 12/11/17 07:57 12/11/17 07:57 12/11/17 07:57 12/11/17 07:57 General appearance: Present: no acute distress, thin - Head Head Exam: Present: normal inspection, normocephalic - Respiratory Respiratory exam: Present: CTAB - Cardiovascular Cardiovascular exam: Present: +S1, +S2 - GI/Abdominal Exam GI/Abdominal exam: Present: diminished bowel sounds, distended, tenderness - Catheter Type: Urethral (Fried) - Extremities Exam Extremities exam: Present: normal capillary refill, normal inspection - Neurological Exam Neurological exam: Present: alert, oriented X3, strengths equal and symetr throughout Additional comments: Drowsy - falls asleep during conversation - Skin Skin exam: Present: dry, pallor, warm Internal Medicine - CN: Reslt - Labs CBC & Chem 7: 12/10/17 05:21 12/10/17 05:21 - ABG Interpretation ABG results: PT/INR, D-dimer PT 14.0 Seconds (9.4-12.1) H 12/09/17 04:54 - Impressions Impressions Chest CTA 12/10/17 14:30 IMPRESSION: 1. Saddle embolus with evidence of right heart strain. Extensive thrombus extends to the smaller pulmonary arteries bilaterally as described above. 2. Small pleural effusion with right base opacity which may represent atelectasis or infection. 3. Redemonstration of multiple hepatic metastases seen to better advantage on CT dated 12/09/2017. 4. Nodular appearance of the liver with severe abdominal ascites, partially visualized. 5. Moderate hiatal hernia. Findings were discussed with Dr. Ibrahim on 12/10/2017 at 3:35 p.m. D/ / 12/10/2017 15:49:50 Lena Dacosta MD / kim Interpreting Provider: Lena Dacosta MD Consult Discharge Plan - Plan Referrals: Larissa Mcgowan, BELT SPLICER [Primary Care Provider] - Palliative Quality Palliative Quality: Screen for Code Status: Yes, Screen for Goals of Care: Yes, Screen for Pain: Yes, If Pain Regimen Started, Initiate Bowel Regimen: Yes, Screen for Nausea/Vomitting: Yes Code Status: 12/09/17 22:20 CODE [Resuscitation Status: Active] [RES] Routine Comment: Resuscitation Status: [id number]
[2017-12-11] MEDS: Albuterol 2.5 MG/3 ML NEBULIZER IH PRN (10:42)
--- NOTE | 2017-12-11 15:22 | Internal Med Progress Note ---
Hospitalist Progress Note - Encounter Date of Encounter: 12/11/17 Time of Encounter: 09:00 - Subjective Interval History: Continues to have generalized weakness and appears pale due to underlying malignancy. Reports improving left-sided chest pain and shortness of breath. No fever, chills, cough. Tolerating Lovenox well. No acute bleeding symptoms noted. - Exam Vitals: Temp Pulse Resp BP Pulse Ox 98.1 F 110 17 93/68 93 12/11/17 11:06 12/11/17 11:06 12/11/17 11:06 12/11/17 11:06 12/11/17 11:06 Exam: General: Well-developed male lying comfortably in bed in no acute distress, appears chronically sick, pallor+ Chest: Normal thoracic expansion. Normal breath sounds. Clear to auscultation. Heart: Normal S1 & S2; rhythmic. No rubs or murmurs. Tachycardic. Abdomen- soft, mild diffuse tenderness to deep palpation Extremities: No clubbing, cyanosis or edema. No calf tenderness. Normal distal pulses. Neurological: Awake, alert and oriented to person, place and time. No focal deficits. Generalized weakness+ - Assessment and Plan (1) Pulmonary embolism Current Visit: Yes Status: Acute Assessment and Plan: Patient presented with syncope, chest pain, hypotension and tachycardia. Echocardiogram showed preserved EF, severe dilation of right ventricle and right atrium, severe right ventricular hypokinesis, mild to moderate tricuspid regurgitation, moderate pulmonary hypertension, which are new changes compared to echocardiogram in 2014. CT angiogram of chest showed submassive saddle pulmonary embolism with right heart strain. Case discussed with cardiology and pulmonology and oncology. Continue subcutaneous therapeutic Lovenox, supportive care and supplemental oxygen. When necessary tramadol and oxycodone for chest pain. Discussed with palliative care, patient and desired to be discharged home under hospice care at this time, patient does not desire further chemotherapy. (2) Elevated troponin Current Visit: Yes Status: Resolved Assessment and Plan: Presented with syncope and hypotension, associated with mild troponin leak, peak troponin 0.22. Currently trending down. This is likely related to acute pulmonary embolism. (3) Syncope Current Visit: Yes Status: Acute Assessment and Plan: Likely related to acute saddle pulmonary embolism. Plan as mentioned above. (4) Ascites Current Visit: Yes Status: Acute Assessment and Plan: Recurrent malignant ascites. Patient is not agreeable to indwelling peritoneal catheter placement due to history of previous malfunction and infection. Interventional radiology has been consulted, patient underwent paracentesis yesterday. (5) Hypotension Current Visit: Yes Status: Resolved Assessment and Plan: Likely related to acute pulmonary embolism. Blood pressure is currently stable. Cautious IV hydration to avoid volume overload per pulmonology recommendations. Comments: remains hypotensive , Albumen IVP continues to run. Non-symptomatic . (6) Diabetes mellitus Current Visit: Yes Status: Chronic (7) Pancreatic adenocarcinoma Current Visit: Yes Status: Chronic Assessment and Plan: Oncology has been on board. After multiple discussions, patient does not desire further chemotherapy, opted for hospice care at this time. (8) Advance care planning Current Visit: Yes Status: Acute (9) SIADH (syndrome of inappropriate ADH production) Current Visit: Yes Status: Chronic - Time Spent with Patient Total time spent is greater than 50% in coordination of care (as documented) at patient's floor/unit and/or counseling patient: Plan of Care Discussed with: patient Internal Medicine: Result - Labs CBC & Chem 7: 12/10/17 05:21 12/10/17 05:21 - ABG Interpretation ABG results: PT/INR, D-dimer PT 14.0 Seconds (9.4-12.1) H 12/09/17 04:54 - Impressions Impressions Chest CTA 12/10/17 14:30 IMPRESSION: 1. Saddle embolus with evidence of right heart strain. Extensive thrombus extends to the smaller pulmonary arteries bilaterally as described above. 2. Small pleural effusion with right base opacity which may represent atelectasis or infection. 3. Redemonstration of multiple hepatic metastases seen to better advantage on CT dated 12/09/2017. 4. Nodular appearance of the liver with severe abdominal ascites, partially visualized. 5. Moderate hiatal hernia. Findings were discussed with Dr. Ibrahim on 12/10/2017 at 3:35 p.m. D/ / 12/10/2017 15:49:50 Lena Dacosta MD / kim Interpreting Provider: Lena Dacosta MD Consult Discharge Plan - Plan Referrals: Larissa Mcgowan, RIP MACHINE OPERATOR [Primary Care Provider] - (1) Pulmonary embolism Qualifiers: Pulmonary embolism type: saddle Chronicity: acute Acute cor pulmonale presence: with acute cor pulmonale Qualified Code(s): I26.02 - Saddle embolus of pulmonary artery with acute cor pulmonale (3) Syncope Qualifiers: Syncope type: unspecified Qualified Code(s): R55 - Syncope and collapse (4) Ascites Qualifiers: Ascites type: malignant Qualified Code(s): R18.8 - Other ascites (5) Hypotension Qualifiers: Hypotension type: idiopathic hypotension Qualified Code(s): I95.0 - Idiopathic hypotension (6) Diabetes mellitus Qualifiers: Diabetes mellitus type: type 2 Diabetes mellitus care home insulin use: without intermodal 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
[2017-12-11] MEDS: Ondansetron ODT 4 MG TAB.RAPDIS SL PRN (19:33)
--- NOTE | 2017-12-11 23:05 | Electrocardiograph Report ---
[address] [address] Test Date: 2017-12-09 Pat Name: Morro Mary Department: EXAM1 Room: 2A45 Gender: M Print Manager: : 1955 Requested By: Rodriguez Adam Order Number: [id number] Reading MD: Deshawn Munoz Measurements Intervals [place] Rate: 130 P: 59 KS: 121 QRS: 98 QRSD: 106 T: 62 QT: 310 QTc: 455 Interpretive Statements Sinus tachycardia Ventricular bigeminy Right axis deviation Low voltage throughout Borderline prolonged QT interval Electronically Signed On 12-11-2017 23:04:26 EDT by Deshawn Munoz
[2017-12-12] MEDS: *HR* Enoxaparin 80 MG/0.8 ML SYRINGE SQ SCH (05:31)
[2017-12-12] MEDS: Tiotropium 18 MCG inhalation IH SCH (07:49)
[2017-12-12] MEDS: Budesonide/Formoterol 160/4.5 1 PUFF INH IH SCH (07:49)
[2017-12-12] MEDS: Finasteride 5 MG TABLET PO SCH (08:15)
[2017-12-12] MEDS: Sennosides/Docusate Sodium TABLET PO SCH (08:15)
--- NOTE | 2017-12-12 09:28 | Palliative Progress Note ---
Date of Encounter: 12/12/17 Time of Encounter: 09:20 - Assessment and plan (1) Cancer associated pain Current Visit: Yes Status: Acute Assessment and plan: Continue current medications. Will add prescriptions for liquid Roxanol if he is unable to take po. (2) Constipation Current Visit: Yes Status: Acute Assessment and plan: Continue bowel regimen. Qualifiers: Constipation type: unspecified constipation type Qualified Code(s): K59.00 - Constipation, unspecified (3) Anxiety Current Visit: Yes Status: Acute Assessment and plan: Continue Lorazepam PRN. (4) Goals of care, counseling/discussion Current Visit: Yes Status: Acute Assessment and plan: Will be discharged home later today with [facility]. Will write prescriptions for liquid pain/anxiety meds, laxatives, and PRN for hiccups. D/ W Dr. Edouard. (5) Ascites Current Visit: No Status: Chronic Qualifiers: Ascites type: malignant Qualified Code(s): R18.0 - Malignant ascites (6) Saddle pulmonary embolus Current Visit: Yes Status: Acute Qualifiers: Chronicity: acute Acute cor pulmonale presence: with acute cor pulmonale Qualified Code(s): I26.02 - Saddle embolus of pulmonary artery with acute cor pulmonale - Time Spent With Patient Total time spent is greater than 50% in coordination of care (as documented) at patient's floor/unit and/or counseling patient: - Subjective Interval history: Patient awake and alert, states rested well last night. Pain well controlled. Claudia at bedside. - Constitutional Vitals: Abnormal lab results RBC 3.87 M/mcL (4.19-5.50) L 12/10/17 05:21 Hgb 10.9 g/dL (12.9-16.9) L 12/10/17 05:21 Hct 32.7 % (37.5-50.1) L 12/10/17 05:21 RDW 14.8 % (11.5-14.5) H 12/10/17 05:21 MPV 8.5 fL (9.4-12.4) L 12/10/17 05:21 PT 14.0 Seconds (9.4-12.1) H 12/09/17 04:54 Sodium 126 mEq/L (136-145) L 12/10/17 05:21 Chloride 94 mEq/L (98-107) L 12/10/17 05:21 Creatinine 0.50 mg/dL (0.70-1.30) L 12/10/17 05:21 BUN/Creatinine Ratio 28 (6-26) H 12/10/17 05:21 Glucose 159 mg/dL (70-105) H 12/10/17 05:21 POC Glucose 206 mg/dL (70-99) H 12/10/17 12:22 Calculated Osmolality 266 (280-300) L 12/10/17 05:21 Calcium 8.3 mg/dL (8.6-10.3) L 12/10/17 05:21 Phosphorus 4.7 mg/dL (2.7-4.5) H 12/09/17 04:54 Alkaline Phosphatase 115 Units/L (34-104) H 12/10/17 05:21 Troponin I 0.18 ng/mL (< 0.04) H* 12/10/17 05:21 Serum Total Protein 5.3 g/dL (6.4-8.9) L 12/10/17 05:21 Albumin 2.7 g/dL (3.5-5.7) L 12/10/17 05:21 Albumin/Globulin Ratio 1.0 (1.1-2.2) L 12/10/17 05:21 Amylase 14 Units/L (29-103) L 12/10/17 05:21 Lipase 10 Units/L (11-82) L 12/10/17 05:21 Urine Protein 30 mg/dL (Neg-Trace) H 12/09/17 15:32 Urine Microscopic RBC 15-30 per hpf (0-3) H 12/09/17 15:32 Ur Squamous Epith Cells Many per lpf (None-Few) H 12/09/17 15:32 - Respiratory Respiratory exam: Present: CTAB - Cardiovascular Cardiovascular exam: Present: +S1, +S2 - GI/Abdominal GI/Abdominal exam: Present: diminished bowel sounds, distended, soft - Additional comments: Fried with dk lobo urine - Extremities Exam Extremities exam: Present: normal capillary refill, normal inspection - Neurological Exam Neurological exam: Present: alert, oriented X3, strengths equal and symetr throughout - Skin Skin exam: Present: dry, pallor, warm Palliative Quality Palliative Quality: Screen for Code Status: Yes, Screen for Goals of Care: Yes, Screen for Pain: Yes, If Pain Regimen Started, Initiate Bowel Regimen: Yes, Screen for Nausea/Vomitting: Yes Code Status: 12/09/17 22:20 CODE [Resuscitation Status: Active] [RES] Routine Comment: Resuscitation Status: [id number] - Labs CBC & Chem 7: 12/10/17 05:21 12/10/17 05:21 - ABG Interpretation ABG results: PT/INR, D-dimer PT 14.0 Seconds (9.4-12.1) H 12/09/17 04:54 Consult Discharge Plan - Plan Referrals: Larissa Mcgowan, RESHIPPING CLERK [Primary Care Provider] -
--- NOTE | 2017-12-12 09:37 | Discharge Summary ---
- NOTES TO OUTPATIENT PROVIDER Notes to Outpatient Provider: Acute saddle PE with underlying pancreatic cancer ; started on subcutaneous Lovenox; now on Home Hospice care; Orders not resulted at time of discharge: Pending orders 12/11/17 04:00 BMP [Basic Metabolic Panel] AM 0400 Date of Encounter: 12/12/17 Time of Encounter: 09:30 - Discharge Diagnosis (1) Pulmonary embolism Priority: Primary Status: Acute Qualifiers: Pulmonary embolism type: saddle Chronicity: acute Acute cor pulmonale presence: with acute cor pulmonale Qualified Code(s): I26.02 - Saddle embolus of pulmonary artery with acute cor pulmonale (2) Elevated troponin Priority: Primary Status: Resolved (3) Syncope Priority: Primary Status: Acute Qualifiers: Syncope type: unspecified Qualified Code(s): R55 - Syncope and collapse (4) Ascites Priority: Primary Status: Acute Qualifiers: Ascites type: malignant Qualified Code(s): R18.8 - Other ascites (5) Hypotension Priority: Primary Status: Resolved Qualifiers: Hypotension type: idiopathic hypotension Qualified Code(s): I95.0 - Idiopathic hypotension (6) Diabetes mellitus Priority: Secondary Status: Chronic Qualifiers: Diabetes mellitus type: type 2 Diabetes mellitus intermediate insulin use: without termite inspector 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 (7) Pancreatic adenocarcinoma Priority: Secondary Status: Chronic (8) Advance care planning Priority: Primary Status: Acute (9) SIADH (syndrome of inappropriate ADH production) Priority: Secondary Status: Chronic Hospital course: Mr. Mary is a 62 year old male with history of metastatic pancreatic adenocarcinoma, who was admitted with syncopal episodes and generalized weakness associated with borderline hypotension. MRI brain showed no intracranial metastatic disease, shows mild chronic small vessel ischemic changes. He was started on IV hydration and telemetry monitoring. Patient also had mild troponin leak at admission, for which cardiology was consulted. Echocardiogram showed preserved EF, severe dilation of right ventricle and right atrium, severe right ventricular hypokinesis, mild to moderate tricuspid regurgitation, moderate pulmonary hypertension, which are new changes compared to echocardiogram in 2014. Due to hypotension, sinus tachycardia, syncopal episodes and echocardiogram findings, CT angiogram of chest was done which showed submassive saddle pulmonary embolism with right heart strain. Patient was followed by pulmonology and oncology during this admission. He was started on therapeutic dose of subcutaneous Lovenox, felt better symptomatically although he continues to have mild sinus tachycardia. He is saturating well on room air. He had recurrent ascites and received paracentesis. At this time, patient does not wish to pursue further chemotherapy, patient and family decided to be discharged home under home hospice care. Palliative care was consulted, and arrangements for home hospice was completed, patient is otherwise medically stable for discharge. Discharge discussed with: patient, family, medical record consultant - Time Spent with Patient Total time spent providing and/or coordinating discharge services: Greater than 30 minutes (45 min) - Discharge Medications Prescriptions: chlorproMAZINE [Thorazine] 25 mg PO Q6H PRN #12 tablet PRN Reason: hiccoughs Enoxaparin [Lovenox *PHARMACY WT BASED*] 100 mg SQ DAILY #30 syringe LORazepam Oral Conc [Ativan Oral Conc] 0.5 - 1 mg PO Q4H PRN 4 Days #15 mls PRN Reason: anxiety if unable to take po MORPHINE SUL Oral CONC [Roxanol Oral Conc] 5 - 10 mg PO Q2H PRN 4 Days #15 oral.syg PRN Reason: pain if unable to take po meds Polyethylene Glycol 3350 [MiraLAX] 17 gm PO DAILY PRN #6 powd.pack PRN Reason: Constipation Home Medications: Lansoprazole [Prevacid] 30 mg PO BID 12/24/16 [History] Montelukast [Singulair] 10 mg PO HS 12/24/16 [History] Loratadine [Claritin] 10 mg PO DAILY tab 12/25/16 [Rx] Albuterol Neb [Proventil Neb] 2.5 mg IH Q4HR PRN 02/20/17 [History] Albuterol Sulfate [Albuterol Inhaler] 2 puff IH Q4H PRN 02/20/17 [History] Finasteride [Proscar] 5 mg PO DAILY 05/29/17 [History] Budesonide/Formoterol 160/4.5 [Symbicort 160/4.5] 2 puff IH BIDR 10/25/17 [ History] Tiotropium [Spiriva] 18 mcg IH DAILY 10/25/17 [History] Sennosides/Docusate Sodium [Senna Plus] 2 each PO BID #60 tablet 10/30/17 [Rx] Lidocaine/Prilocaine [Emla] 1 appl TP DAILY #30 gm 11/05/17 [Rx] Metoclopramide HCl 5 mg PO QIDAC #150 tablet 11/05/17 [Rx] Albuterol Sulfate [Proventil] 4 mg PO TID 11/14/17 [History] Oxycodone HCl [Oxaydo] 10 mg PO Q4H PRN 11/14/17 [History] Tramadol HCl [Ultram] 50 - 100 mg PO Q6H PRN 14 Days #30 tab 11/21/17 [Rx] Demeclocycline [Declomycin] 300 mg PO Q12HR #120 tablet 11/29/17 [Rx] Ondansetron [Zofran ODT] 8 mg SL Q8H PRN #30 tab 12/06/17 [Rx] Bisacodyl [Dulcolax] 10 mg PO DAILY tablet 12/12/17 [Rx] Enoxaparin [Lovenox *PHARMACY WT BASED*] 100 mg SQ DAILY #30 syringe 12/12/17 [ Rx] LORazepam Oral Conc [Ativan Oral Conc] 0.5 - 1 mg PO Q4H PRN 4 Days #15 mls 09/23 [Rx] MORPHINE SUL Oral CONC [Roxanol Oral Conc] 5 - 10 mg PO Q2H PRN 4 Days #15 oral.syg 12/12/17 [Rx] Polyethylene Glycol 3350 [MiraLAX] 17 gm PO DAILY PRN #6 powd.pack 12/12/17 [Rx] chlorproMAZINE [Thorazine] 25 mg PO Q6H PRN #12 tablet 12/12/17 [Rx] Allergies/Adverse Reactions: 3 Allergy/AdvReac Type Severity Reaction Status Date / Time azithromycin Allergy Rash Verified 12/09/17 09:30 [From Zithromax Z-Michael] ciprofloxacin [From Cipro] Allergy Rash Verified 12/09/17 09:30 mold Allergy Rash Verified 12/09/17 09:30 Amoxicillin [From Augmentin] AdvReac Gastrointestinal Verified 12/09/17 09:30 Upset clavulanic acid AdvReac Gastrointestinal Verified 12/09/17 09:30 [From Augmentin] Upset dust Allergy Wheezing Uncoded 12/09/17 09:30 Date of admission: 12/10/17 10:41 Primary care physician: Larissa Mcgowan CNP Consults: 12/10/17 15:47 Consult to Pulmonology [CONS] Routine Consulting Provider: [facility] Reason for Consult: Acute saddle PE, h/o- metastatic pancreatic cancer with liver mets; Call Completed: Yes 12/10/17 18:11 Consult to Palliative Care [CONS] Routine Comment: Consulting Provider: [facility] [place] Reason for Consult: Pancreatic cancer, patient is interested in hearing about what hospice can offer Call Completed: No Discharging clinician: Alicia Edouard Anticipated date of discharge: 12/12/17 - Constitutional Vitals: Temp Pulse Resp BP Pulse Ox 98.9 F 111 18 96/65 92 12/12/17 07:44 12/12/17 07:44 12/12/17 07:49 12/12/17 07:44 12/12/17 07:49 General appearance: Present: cooperative, A&O X 3, answers questions appropriately Exam: . - Respiratory Respiratory exam: Present: CTAB. Absent: accessory muscle use, rales, rhonchi, wheezes - Cardiovascular Cardiovascular exam: Present: RRR, +S1, +S2, tachycardia. Absent: diastolic murmur, gallop, rubs, systolic murmur - Patient Status Disposition: Hospice - Home Condition: Fair Functional capacity at discharge: bed bound Overall status at discharge: patient is progressing back to baseline - Discharge Instructions Instructions: Pulmonary Embolism (GEN), Fried Catheter Placement and Care (GEN) , Pancreatic Cancer (GEN), Anemia (GEN) Follow Up With: Gee Nolasco MD [Partnered Physician] - 01/14/18 10:15 am (Please follow up as schedule...) Larissa Mcgowan CNP [Primary Care Provider] - (patient is going [facility] with [facility] patient will call for an appt.) - Diet and Activity Activity: resume usual activities as tolerated, wear oxygen at all times (PRN for comfort), other (indwelling Fried catheter for comfort) Diet: advance to your usual diet - VTE Documentation of Mechanical Device: Graduated compression elastic hosiery
--- NOTE | 2017-12-12 09:45 | Physician Discharge Referral ---
Home Health/Hosp Referral Info Transfer to: Hospice Attending Provider: Alicia Edouard Provider in Charge Post Discharge: PCP - Diagnosis (1) Pulmonary embolism Priority: Primary Status: Acute (2) Elevated troponin Priority: Primary Status: Resolved (3) Syncope Priority: Primary Status: Acute (4) Ascites Priority: Primary Status: Acute (5) Hypotension Priority: Primary Status: Resolved (6) Diabetes mellitus Priority: Secondary Status: Chronic (7) Pancreatic adenocarcinoma Priority: Secondary Status: Chronic (8) Advance care planning Priority: Primary Status: Acute (9) SIADH (syndrome of inappropriate ADH production) Priority: Secondary Status: Chronic - Respiratory Orders Oxygen / L per min (2L/min PRN for comfort) Smoking Cessation: Smoking cessation has been advised. For more information, call the [employer] Quit Line at [phone]. - Diet/Nutrition Diet/Nutrition Orders: Regular - Activity Activity Orders: Bedrest - Services Needed Following services are medically necessary services: Nursing, Physical Therapy, Occupational Therapy - Transfer Medications Prescriptions: chlorproMAZINE [Thorazine] 25 mg PO Q6H PRN #12 tablet PRN Reason: hiccoughs Enoxaparin [Lovenox *PHARMACY WT BASED*] 100 mg SQ DAILY #30 syringe LORazepam Oral Conc [Ativan Oral Conc] 0.5 - 1 mg PO Q4H PRN 4 Days #15 mls PRN Reason: anxiety if unable to take po MORPHINE SUL Oral CONC [Roxanol Oral Conc] 5 - 10 mg PO Q2H PRN 4 Days #15 oral.syg PRN Reason: pain if unable to take po meds Polyethylene Glycol 3350 [MiraLAX] 17 gm PO DAILY PRN #6 powd.pack PRN Reason: Constipation Home Medications: Lansoprazole [Prevacid] 30 mg PO BID 12/24/16 [History] Montelukast [Singulair] 10 mg PO HS 12/24/16 [History] Loratadine [Claritin] 10 mg PO DAILY tab 12/25/16 [Rx] Albuterol Neb [Proventil Neb] 2.5 mg IH Q4HR PRN 02/20/17 [History] Albuterol Sulfate [Albuterol Inhaler] 2 puff IH Q4H PRN 02/20/17 [History] Finasteride [Proscar] 5 mg PO DAILY 05/29/17 [History] Budesonide/Formoterol 160/4.5 [Symbicort 160/4.5] 2 puff IH BIDR 10/25/17 [ History] Tiotropium [Spiriva] 18 mcg IH DAILY 10/25/17 [History] Sennosides/Docusate Sodium [Senna Plus] 2 each PO BID #60 tablet 10/30/17 [Rx] Lidocaine/Prilocaine [Emla] 1 appl TP DAILY #30 gm 11/05/17 [Rx] Metoclopramide HCl 5 mg PO QIDAC #150 tablet 11/05/17 [Rx] Albuterol Sulfate [Proventil] 4 mg PO TID 11/14/17 [History] Oxycodone HCl [Oxaydo] 10 mg PO Q4H PRN 11/14/17 [History] Tramadol HCl [Ultram] 50 - 100 mg PO Q6H PRN 14 Days #30 tab 11/21/17 [Rx] Demeclocycline [Declomycin] 300 mg PO Q12HR #120 tablet 11/29/17 [Rx] Ondansetron [Zofran ODT] 8 mg SL Q8H PRN #30 tab 12/06/17 [Rx] Bisacodyl [Dulcolax] 10 mg PO DAILY tablet 12/12/17 [Rx] Enoxaparin [Lovenox *PHARMACY WT BASED*] 100 mg SQ DAILY #30 syringe 12/12/17 [ Rx] LORazepam Oral Conc [Ativan Oral Conc] 0.5 - 1 mg PO Q4H PRN 4 Days #15 mls 09/23 [Rx] MORPHINE SUL Oral CONC [Roxanol Oral Conc] 5 - 10 mg PO Q2H PRN 4 Days #15 oral.syg 12/12/17 [Rx] Polyethylene Glycol 3350 [MiraLAX] 17 gm PO DAILY PRN #6 powd.pack 12/12/17 [Rx] chlorproMAZINE [Thorazine] 25 mg PO Q6H PRN #12 tablet 12/12/17 [Rx] Allergies/Adverse Reactions: 3 Allergy/AdvReac Type Severity Reaction Status Date / Time azithromycin Allergy Rash Verified 12/09/17 09:30 [From Zithromax Z-Michael] ciprofloxacin [From Cipro] Allergy Rash Verified 12/09/17 09:30 mold Allergy Rash Verified 12/09/17 09:30 Amoxicillin [From Augmentin] AdvReac Gastrointestinal Verified 12/09/17 09:30 Upset clavulanic acid AdvReac Gastrointestinal Verified 12/09/17 09:30 [From Augmentin] Upset dust Allergy Wheezing Uncoded 12/09/17 09:30 Certification: Further, I certify that my clinical findings support that this patient is homebound (i.e. absences from home require considerable and taxing effort and are for medical reasons or quaker services or infrequently or short duration when for other reasons) because: Homebound Reason: Patient requires assistance of a person or device to safely leave home, Leaving home requires considerable and taxing effort due to condition Attestation: My signature below is to certify that this patient is under my care and that I, or nurse practitioner, or a physician's school health assistant working with me, has a face-to -face encounter with this patient.
[2017-12-12 11:26] VITALS: BP 97/66
--- NOTE | 2017-12-14 12:23 | Electrocardiograph Report ---
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
--- NOTE | 2017-12-14 12:27 | Electrocardiograph Report ---
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
== END 2017-12-12 13:51 | disposition hospice, home (50) | DRG 435 ==
LOC: 2ANU 04:26 → EMEROOARM 04:26 → SUATTDRO 07:54 → 2ANU 08:38
PROVIDERS: ADMIT Internal Medicine; ATTEND Internal Medicine